=== PATIENT | male | born 1930 | race Caucasian/White ===

== ENCOUNTER 2018-05-06 23:57 | Inpatient (IN) | payer OTHER ==
[2018-05-07] MEDS: ASPIRIN 81 MG TAB PO (00:31)
[2018-05-07 00:34] LABS: ADD MAN DIFF? NO
[2018-05-07 00:35] LABS: BASOPHILS % 0.5 % (0.0-2.0); EOSINOPHILS # 0.1 10^3/ul (0.0-0.5); EOSINOPHILS % 1.7 % (0.0-7.0); HEMATOCRIT 37.3 % (42.0-52.0); HEMOGLOBIN 12.1 g/dl (14.0-18.0); LYMPHOCYTES # 0.7 10^3/ul (0.8-2.9); LYMPHOCYTES % 11.3 % (15.0-51.0); MEAN CORPUSCULAR HEMOGLOBIN 29.5 pg (29.0-33.0); MEAN CORPUSCULAR HGB CONC 32.4 g/dl (32.0-37.0); MEAN PLATELET VOLUME 9.9 fl (7.4-10.4); MONOCYTE # 0.4 10^3/ul (0.3-0.9); MONOCYTES % 7.1 % (0.0-11.0); NEUTROPHIL # 4.7 10^3/ul (1.6-7.5); NEUTROPHILS % 78.7 % (39.0-77.0); PLATELET COUNT 208 10^3/UL (140-415); RED CELL DISTRIBUTION WIDTH 15.3 % (11.5-14.5)
[2018-05-07 00:35] LABS: WHITE BLOOD COUNT 5.9 10^3/ul (4.8-10.8)
[2018-05-07] MEDS: NITROGLYCERIN 2% 1 GM OINT PKT TD (00:37)
[2018-05-07] MEDS: FUROSEMIDE 40 MG INJ IV (00:37)
[2018-05-07 00:53] LABS: ANION GAP 12 (8-16); BLOOD UREA NITROGEN 14 mg/dl (7-20); CALCIUM 8.1 mg/dl (8.4-10.2); CARBON DIOXIDE 28 mmol/L (21-31); CHLORIDE 100 mmol/L (97-110); CREATININE 0.82 mg/dl (0.61-1.24); GLUCOSE 107 mg/dl (70-220); POTASSIUM 3.3 mmol/L (3.5-5.1); SODIUM 137 mmol/L (135-144)
[2018-05-07 00:59] LABS: INR 1.26; PT RATIO 1.3
[2018-05-07 01:00] LABS: PARTIAL THROMBOPLASTIN TIME 38.2 Sec (25.0-35.0)
[2018-05-07 01:06] LABS: B-TYPE NATRIURETIC PEPTIDE 3570 PG/ML (0-450); TROPONIN-I 0.014 ng/ml (0.000-0.120)
[2018-05-07] MEDS: MAGNESIUM SULFATE 2 GM/50 ML 50 ML IVPB (01:12)
[2018-05-07] MEDS ORDERED: ONDANSETRON 4 MG INJ IV ×2 (01:30→02:30)
[2018-05-07] MEDS ORDERED: ACETAMINOPHEN 325 MG TAB PO ×2 (01:30→02:30)
[2018-05-07] MEDS ORDERED: IPRATROPIUM (NEB) 0.5 MG/2.5 ML AMP NEB (02:30)
[2018-05-07] MEDS ORDERED: LEVALBUTEROL (NEB) 0.63 MG/3 ML AMP HHN (02:30)
[2018-05-07] MEDS ORDERED: NITROGLYCERIN (SL) 0.4 MG TAB SL (02:30)
[2018-05-07] MEDS ORDERED: NACL 0.9% 3 ML SYG IV (02:30)
[2018-05-07 02:47] LABS: DIGOXIN 0.4 ng/ml (1.0-2.0)
[2018-05-07] MEDS: AMIODARONE 150MG/D5W BOLUS 100 ML IV (05:26)
[2018-05-07] MEDS: ALBUMIN HUMAN 25% 150 ML IV (05:34)
[2018-05-07] MEDS: AMIODARONE 900 MG in DEXTROSE 5% 482 ML IV ×2 (05:47→11:44)
[2018-05-07 06:39] LABS: ADD MAN DIFF? NO
[2018-05-07 06:55] LABS: ABNORMAL IP MESSAGE 1; BASOPHILS % 0.2 % (0.0-2.0); EOSINOPHILS % 0.9 % (0.0-7.0); HEMATOCRIT 29.3 % (42.0-52.0); HEMOGLOBIN 9.8 g/dl (14.0-18.0); LYMPHOCYTES # 0.4 10^3/ul (0.8-2.9); LYMPHOCYTES % 8.2 % (15.0-51.0); MEAN CORPUSCULAR HEMOGLOBIN 30.2 pg (29.0-33.0); MEAN CORPUSCULAR HGB CONC 33.4 g/dl (32.0-37.0); MEAN CORPUSCULAR VOLUME 90.2 fl (82.0-101.0); MEAN PLATELET VOLUME 10.1 fl (7.4-10.4); MONOCYTE # 0.3 10^3/ul (0.3-0.9); MONOCYTES % 7.1 % (0.0-11.0); NEUTROPHIL # 3.7 10^3/ul (1.6-7.5); NEUTROPHILS % 82.7 % (39.0-77.0); PLATELET COUNT 168 10^3/UL (140-415); POSITIVE DIFF @See below; RED BLOOD COUNT 3.25 10^6/ul (4.70-6.10); RED CELL DISTRIBUTION WIDTH 15.2 % (11.5-14.5)
[2018-05-07 06:55] LABS: WHITE BLOOD COUNT 4.5 10^3/ul (4.8-10.8)
[2018-05-07 08:14] LABS: CREATINE KINASE < 20 IU/L (23-200)
[2018-05-07 08:15] LABS: ALANINE AMINOTRANSFERASE 19 IU/L (13-69); ALBUMIN 2.6 g/dl (3.3-4.9); ALBUMIN/GLOBULIN RATIO 0.83; ALKALINE PHOSPHATASE 90 IU/L (42-121); ANION GAP 11 (8-16); ASPARTATE AMINO TRANSFERASE 15 IU/L (15-46); BILIRUBIN,INDIRECT 0.8 mg/dl (0-1.1); BILIRUBIN,TOTAL 0.8 mg/dl (0.2-1.3); BLOOD UREA NITROGEN 13 mg/dl (7-20); CALCIUM 7.5 mg/dl (8.4-10.2); CARBON DIOXIDE 30 mmol/L (21-31); CHLORIDE 98 mmol/L (97-110); CREATININE 0.74 mg/dl (0.61-1.24); GLUCOSE 110 mg/dl (70-220); POTASSIUM 3.1 mmol/L (3.5-5.1); SODIUM 136 mmol/L (135-144); TOTAL PROTEIN 5.7 g/dl (6.1-8.1)
[2018-05-07 08:18] LABS: CK-MB 0.69 ng/ml (0.0-2.4); TROPONIN-I 0.011 ng/ml (0.000-0.120)
[2018-05-07] MEDS: MAGNESIUM HYDROXIDE 30ML CUP PO ×2 (09:54→20:28)
[2018-05-07] MEDS: DOCUSATE SODIUM 100 MG CAP PO (09:55)
[2018-05-07] MEDS: APIXABAN 5 MG TABLET PO ×2 (09:55→20:28)
[2018-05-07] MEDS: LISINOPRIL 5 MG TAB PO (09:55)
[2018-05-07] MEDS: METOPROLOL (XL) 25 MG TAB PO ×2 (09:56→20:27)
[2018-05-07] MEDS: FISH OIL 1,000 MG CAP PO ×3 (09:57→17:43)
[2018-05-07] MEDS: FUROSEMIDE 20 MG TAB PO (09:57)
[2018-05-07 12:45] LABS: CK-MB 0.57 ng/ml (0.0-2.4); TROPONIN-I 0.011 ng/ml (0.000-0.120)
[2018-05-07 12:46] LABS: CREATINE KINASE < 20 IU/L (23-200)
[2018-05-07] MEDS: DIGOXIN 0.125 MG TAB PO (13:00)
[2018-05-07] MEDS ORDERED: BISACODYL 10 MG SUPP PR (13:30)
[2018-05-07] MEDS ORDERED: BISACODYL (EC) 5 MG TAB PO (13:30)
[2018-05-08] MEDS: DOCUSATE SODIUM 100 MG CAP PO (08:27)
[2018-05-08] MEDS: FAMOTIDINE 20 MG TAB PO (08:29)
[2018-05-08] MEDS: FISH OIL 1,000 MG CAP PO ×3 (08:29→18:06)
[2018-05-08] MEDS: APIXABAN 5 MG TABLET PO ×2 (08:30→21:07)
[2018-05-08] MEDS: LISINOPRIL 5 MG TAB PO (08:30)
[2018-05-08] MEDS: MAGNESIUM HYDROXIDE 30ML CUP PO ×2 (08:31→21:00)
[2018-05-08] MEDS: METOPROLOL (XL) 25 MG TAB PO ×2 (08:31→21:00)
[2018-05-08 09:09] LABS: ADD MAN DIFF? NO
[2018-05-08 09:18] LABS: ABNORMAL IP MESSAGE 1; BASOPHILS % 0.4 % (0.0-2.0); EOSINOPHILS # 0.1 10^3/ul (0.0-0.5); HEMOGLOBIN 9.9 g/dl (14.0-18.0); LYMPHOCYTES # 0.5 10^3/ul (0.8-2.9); MEAN CORPUSCULAR HGB CONC 31.9 g/dl (32.0-37.0); MEAN CORPUSCULAR VOLUME 90.9 fl (82.0-101.0); MEAN PLATELET VOLUME 10.5 fl (7.4-10.4); MONOCYTE # 0.5 10^3/ul (0.3-0.9); MONOCYTES % 8.6 % (0.0-11.0); NEUTROPHIL # 4.2 10^3/ul (1.6-7.5); NEUTROPHILS % 80.6 % (39.0-77.0); PLATELET COUNT 171 10^3/UL (140-415); POSITIVE DIFF @See below; RED BLOOD COUNT 3.41 10^6/ul (4.70-6.10); RED CELL DISTRIBUTION WIDTH 15.5 % (11.5-14.5)
[2018-05-08 09:18] LABS: WHITE BLOOD COUNT 5.2 10^3/ul (4.8-10.8)
[2018-05-08 09:39] LABS: DIGOXIN 0.7 ng/ml (1.0-2.0)
[2018-05-08 09:40] LABS: ALANINE AMINOTRANSFERASE 21 IU/L (13-69); ALBUMIN 2.3 g/dl (3.3-4.9); ALBUMIN/GLOBULIN RATIO 0.74; ALKALINE PHOSPHATASE 89 IU/L (42-121); ANION GAP 8 (8-16); ASPARTATE AMINO TRANSFERASE 12 IU/L (15-46); BLOOD UREA NITROGEN 17 mg/dl (7-20); CALCIUM 7.5 mg/dl (8.4-10.2); CARBON DIOXIDE 32 mmol/L (21-31); CHLORIDE 96 mmol/L (97-110); CREATININE 0.76 mg/dl (0.61-1.24); GLUCOSE 96 mg/dl (70-220); MAGNESIUM 2.3 mg/dl (1.7-2.5); PHOSPHORUS 3.5 mg/dl (2.5-4.9); POTASSIUM 3.3 mmol/L (3.5-5.1); SODIUM 133 mmol/L (135-144); TOTAL PROTEIN 5.4 g/dl (6.1-8.1)
[2018-05-08 09:43] LABS: INR 1.57; PROTIME 19.1 Sec (11.9-14.9); PT RATIO 1.5
[2018-05-08 09:49] LABS: TROPONIN-I 0.019 ng/ml (0.000-0.120)
[2018-05-08 09:50] LABS: HEMOGLOBIN A1C 5.6 % (0-5.9)
[2018-05-08] MEDS: POTASSIUM CHLORIDE (SR) 20 MEQ TAB PO (11:37)
[2018-05-08] MEDS: DIGOXIN 0.125 MG TAB PO (12:24)
[2018-05-08 12:57] LABS: IRON 18 ug/dl (35-150)
[2018-05-08 13:06] LABS: % IRON SATURATION 10 % SAT (22-52); TOTAL IRON BINDING CAPACITY 184 ug/dl (241-421)
[2018-05-08] MEDS ORDERED: BISACODYL (EC) 5 MG TAB PO (16:30)
[2018-05-08] MEDS: FUROSEMIDE 40 MG INJ IV (18:05)
[2018-05-08] MEDS: POLYETHYLENE GLYCOL 17 GM PACKET PO (21:06)
[2018-05-09] MEDS: FUROSEMIDE 40 MG INJ IV ×2 (05:05→17:30)
[2018-05-09 07:49] LABS: ADD MAN DIFF? NO
[2018-05-09 08:00] LABS: WHITE BLOOD COUNT 5.1 10^3/ul (4.8-10.8)
[2018-05-09 08:00] LABS: BASOPHILS % 0.6 % (0.0-2.0); EOSINOPHILS # 0.1 10^3/ul (0.0-0.5); HEMOGLOBIN 10.2 g/dl (14.0-18.0); LYMPHOCYTES # 0.6 10^3/ul (0.8-2.9); LYMPHOCYTES % 12.3 % (15.0-51.0); MEAN CORPUSCULAR HGB CONC 31.9 g/dl (32.0-37.0); MEAN CORPUSCULAR VOLUME 90.9 fl (82.0-101.0); MEAN PLATELET VOLUME 10.3 fl (7.4-10.4); MONOCYTE # 0.5 10^3/ul (0.3-0.9); MONOCYTES % 10.1 % (0.0-11.0); NEUTROPHIL # 3.8 10^3/ul (1.6-7.5); NEUTROPHILS % 74.4 % (39.0-77.0); PLATELET COUNT 184 10^3/UL (140-415); POSITIVE DIFF @See below; RED BLOOD COUNT 3.52 10^6/ul (4.70-6.10); RED CELL DISTRIBUTION WIDTH 15.4 % (11.5-14.5)
[2018-05-09 08:22] LABS: CHOL/HDL RATIO 2.7 RATIO; CHOLESTEROL 68 mg/dl (100-200); HDL CHOLESTEROL 25 mg/dl (31-75); LDL CHOLESTEROL,CALCULATED 30 mg/dl; MAGNESIUM 2.5 mg/dl (1.7-2.5); TRIGLYCERIDES 66 mg/dl (0-149)
[2018-05-09 08:22] LABS: PHOSPHORUS 3.3 mg/dl (2.5-4.9)
[2018-05-09 08:27] LABS: ALANINE AMINOTRANSFERASE 24 IU/L (13-69); ALBUMIN/GLOBULIN RATIO 0.71; ALKALINE PHOSPHATASE 84 IU/L (42-121); ANION GAP 6 (8-16); ASPARTATE AMINO TRANSFERASE 13 IU/L (15-46); BILIRUBIN,INDIRECT 0.4 mg/dl (0-1.1); BILIRUBIN,TOTAL 0.4 mg/dl (0.2-1.3); BLOOD UREA NITROGEN 20 mg/dl (7-20); CALCIUM 7.6 mg/dl (8.4-10.2); CARBON DIOXIDE 34 mmol/L (21-31); CHLORIDE 99 mmol/L (97-110); CREATININE 0.89 mg/dl (0.61-1.24); GLUCOSE 95 mg/dl (70-220); POTASSIUM 4.1 mmol/L (3.5-5.1); SODIUM 135 mmol/L (135-144); TOTAL PROTEIN 4.8 g/dl (6.1-8.1)
[2018-05-09] MEDS: FISH OIL 1,000 MG CAP PO ×3 (08:34→17:30)
[2018-05-09] MEDS: METOPROLOL (XL) 25 MG TAB PO (08:34)
[2018-05-09] MEDS: APIXABAN 5 MG TABLET PO ×2 (08:34→21:48)
[2018-05-09] MEDS: FAMOTIDINE 20 MG TAB PO (08:34)
[2018-05-09] MEDS: DOCUSATE SODIUM 100 MG CAP PO (08:34)
[2018-05-09] MEDS: MAGNESIUM HYDROXIDE 30ML CUP PO ×2 (08:34→21:00)
[2018-05-09] MEDS: LISINOPRIL 5 MG TAB PO (08:35)
[2018-05-09] MEDS: DIGOXIN 0.125 MG TAB PO (12:04)
[2018-05-09 20:32] LABS: PSA, FREE 0.1 ng/mL
[2018-05-10] MEDS: FUROSEMIDE 40 MG INJ IV ×2 (06:15→17:17)
[2018-05-10] MEDS: MAGNESIUM HYDROXIDE 30ML CUP PO ×2 (07:24→20:46)
[2018-05-10] MEDS: DOCUSATE SODIUM 100 MG CAP PO (07:25)
[2018-05-10] MEDS: SPECIAL NON-STANDARD MEDICATION PO (08:00)
[2018-05-10] MEDS: FISH OIL 1,000 MG CAP PO ×3 (08:07→17:17)
[2018-05-10] MEDS: APIXABAN 5 MG TABLET PO ×2 (08:07→20:45)
[2018-05-10] MEDS: FAMOTIDINE 20 MG TAB PO (08:07)
[2018-05-10] MEDS: IOHEXOL 14.3 MG(I)/ML (ADULT) BTL PO (09:39)
[2018-05-10 11:26] LABS: ADD MAN DIFF? NO
[2018-05-10 11:27] LABS: WHITE BLOOD COUNT 4.6 10^3/ul (4.8-10.8)
[2018-05-10 11:27] LABS: BASOPHILS % 0.4 % (0.0-2.0); EOSINOPHILS # 0.1 10^3/ul (0.0-0.5); EOSINOPHILS % 2.6 % (0.0-7.0); HEMATOCRIT 33.1 % (42.0-52.0); HEMOGLOBIN 10.5 g/dl (14.0-18.0); LYMPHOCYTES # 0.7 10^3/ul (0.8-2.9); LYMPHOCYTES % 14.9 % (15.0-51.0); MEAN CORPUSCULAR HEMOGLOBIN 29.1 pg (29.0-33.0); MEAN CORPUSCULAR HGB CONC 31.7 g/dl (32.0-37.0); MEAN CORPUSCULAR VOLUME 91.7 fl (82.0-101.0); MEAN PLATELET VOLUME 10.6 fl (7.4-10.4); MONOCYTE # 0.4 10^3/ul (0.3-0.9); MONOCYTES % 9.4 % (0.0-11.0); NEUTROPHIL # 3.3 10^3/ul (1.6-7.5); PLATELET COUNT 201 10^3/UL (140-415); POSITIVE DIFF @See below; RED BLOOD COUNT 3.61 10^6/ul (4.70-6.10); RED CELL DISTRIBUTION WIDTH 15.2 % (11.5-14.5)
[2018-05-10 11:57] LABS: ANION GAP 8 (8-16); BLOOD UREA NITROGEN 19 mg/dl (7-20); CALCIUM 7.5 mg/dl (8.4-10.2); CARBON DIOXIDE 33 mmol/L (21-31); CHLORIDE 96 mmol/L (97-110); CREATININE 0.78 mg/dl (0.61-1.24); GLUCOSE 95 mg/dl (70-220); POTASSIUM 3.4 mmol/L (3.5-5.1); SODIUM 134 mmol/L (135-144)
[2018-05-10 11:58] LABS: PHOSPHORUS 3.5 mg/dl (2.5-4.9)
[2018-05-10 11:58] LABS: MAGNESIUM 2.2 mg/dl (1.7-2.5)
[2018-05-10 12:01] LABS: DIGOXIN 0.7 ng/ml (1.0-2.0)
[2018-05-10 12:03] LABS: B-TYPE NATRIURETIC PEPTIDE 2820 PG/ML (0-450)
[2018-05-10] MEDS: DIGOXIN 0.125 MG TAB PO (12:14)
[2018-05-10 13:03] LABS: ANISOCYTOSIS 1+ (0-0); BAND NEUTROPHILS #M 0.1 10^3/ul (0.0-0.6); BAND NEUTROPHILS % (M) 3 % (0-4); EOSINOPHILS % (M) 9 % (0-7); GIANT THROMBO% (M) 1 % (0-0); LYMPHOCYTES % (M) 1 % (15-51); MONOCYTE #M 0.2 10^3/ul (0.3-0.9); MONOCYTES % (M) 6 % (0-11); PLATELET ESTIMATE NORMAL; POIKILOCYTOSIS 2+ (0-0); POLYCHROMASIA 1+ (0-0); REACTIVE LYMPHOCYTES #M 0.1 10^3/ul (0.0-0.0); REACTIVE LYMPHOCYTES% (M) 3 % (0-0); SEG NEUT #M 3.6 10^3/ul (1.6-7.5); SEGMENTED NEUTROPHILS (M) % 78 % (39-77); SMUDGE%M 13 % (0-0); SPHEROCYTES 1+ (0-0)
[2018-05-10] MEDS: DIGOXIN 0.25 MG TAB PO (18:58)
[2018-05-10] MEDS: POTASSIUM CHLORIDE (SR) 20 MEQ TAB PO (21:48)
[2018-05-11] MEDS: FUROSEMIDE 40 MG INJ IV ×2 (04:24→08:49)
[2018-05-11] MEDS: ALBUMIN HUMAN 25% 100 ML IV ×2 (05:33→06:05)
[2018-05-11] MEDS: MAGNESIUM HYDROXIDE 30ML CUP PO ×3 (08:42→21:04)
[2018-05-11] MEDS: DOCUSATE SODIUM 100 MG CAP PO (08:43)
[2018-05-11] MEDS: APIXABAN 5 MG TABLET PO ×2 (08:43→21:04)
[2018-05-11] MEDS: FISH OIL 1,000 MG CAP PO ×3 (08:43→17:54)
[2018-05-11] MEDS: FAMOTIDINE 20 MG TAB PO (08:43)
[2018-05-11 09:26] LABS: ADD MAN DIFF? NO
[2018-05-11 09:36] LABS: WHITE BLOOD COUNT 3.7 10^3/ul (4.8-10.8)
[2018-05-11 09:36] LABS: BASOPHILS % 0.3 % (0.0-2.0); EOSINOPHILS # 0.1 10^3/ul (0.0-0.5); EOSINOPHILS % 1.6 % (0.0-7.0); HEMATOCRIT 28.7 % (42.0-52.0); HEMOGLOBIN 9.1 g/dl (14.0-18.0); LYMPHOCYTES # 0.6 10^3/ul (0.8-2.9); LYMPHOCYTES % 16.3 % (15.0-51.0); MEAN CORPUSCULAR HEMOGLOBIN 29.5 pg (29.0-33.0); MEAN CORPUSCULAR HGB CONC 31.7 g/dl (32.0-37.0); MEAN CORPUSCULAR VOLUME 93.2 fl (82.0-101.0); MEAN PLATELET VOLUME 10.6 fl (7.4-10.4); MONOCYTE # 0.4 10^3/ul (0.3-0.9); MONOCYTES % 11.2 % (0.0-11.0); NEUTROPHIL # 2.6 10^3/ul (1.6-7.5); NEUTROPHILS % 70.1 % (39.0-77.0); PLATELET COUNT 179 10^3/UL (140-415); RED BLOOD COUNT 3.08 10^6/ul (4.70-6.10); RED CELL DISTRIBUTION WIDTH 15.1 % (11.5-14.5)
[2018-05-11 10:09] LABS: MAGNESIUM 2.1 mg/dl (1.7-2.5)
[2018-05-11 10:09] LABS: PHOSPHORUS 3.4 mg/dl (2.5-4.9)
[2018-05-11 10:10] LABS: ANION GAP 10 (8-16); BLOOD UREA NITROGEN 17 mg/dl (7-20); CALCIUM 7.7 mg/dl (8.4-10.2); CARBON DIOXIDE 34 mmol/L (21-31); CHLORIDE 95 mmol/L (97-110); CREATININE 0.71 mg/dl (0.61-1.24); GLUCOSE 92 mg/dl (70-220); SODIUM 135 mmol/L (135-144)
[2018-05-11] MEDS: DIGOXIN 0.125 MG TAB PO (13:21)
[2018-05-11] MEDS: PANTOPRAZOLE (EC) 40 MG TAB PO (17:54)
[2018-05-11] MEDS ORDERED: PANTOPRAZOLE (EC) 40 MG TAB PO (18:00)
[2018-05-11] MEDS: FUROSEMIDE 40 MG TAB NGT (19:00)
[2018-05-11] MEDS: CLARITHROMYCIN 500 MG TAB PO (21:04)
[2018-05-11] MEDS: AMOXICILLIN 500 MG CAP PO (21:04)
[2018-05-12] MEDS: FUROSEMIDE 40 MG TAB NGT ×2 (06:00→17:17)
[2018-05-12] MEDS: PANTOPRAZOLE (EC) 40 MG TAB PO ×2 (06:01→17:20)
[2018-05-12] MEDS: DOCUSATE SODIUM 100 MG CAP PO (08:43)
[2018-05-12] MEDS: AMOXICILLIN 500 MG CAP PO ×2 (08:43→20:29)
[2018-05-12] MEDS: APIXABAN 5 MG TABLET PO ×2 (08:43→20:29)
[2018-05-12] MEDS: FISH OIL 1,000 MG CAP PO ×3 (08:43→17:19)
[2018-05-12] MEDS: CLARITHROMYCIN 500 MG TAB PO ×2 (08:43→20:29)
[2018-05-12] MEDS: MAGNESIUM HYDROXIDE 30ML CUP PO ×2 (08:44→20:29)
[2018-05-12 08:57] LABS: ABNORMAL IP MESSAGE 1; HEMATOCRIT 31.7 % (42.0-52.0); HEMOGLOBIN 10.1 g/dl (14.0-18.0); MEAN CORPUSCULAR HEMOGLOBIN 29.8 pg (29.0-33.0); MEAN CORPUSCULAR HGB CONC 31.9 g/dl (32.0-37.0); MEAN CORPUSCULAR VOLUME 93.5 fl (82.0-101.0); MEAN PLATELET VOLUME 10.3 fl (7.4-10.4); PLATELET COUNT 192 10^3/UL (140-415); POSITIVE DIFF @See below; RED BLOOD COUNT 3.39 10^6/ul (4.70-6.10)
[2018-05-12 09:03] LABS: ADD MAN DIFF? YES
[2018-05-12 09:16] LABS: ANION GAP 12 (8-16); BLOOD UREA NITROGEN 13 mg/dl (7-20); CALCIUM 7.8 mg/dl (8.4-10.2); CARBON DIOXIDE 33 mmol/L (21-31); CHLORIDE 95 mmol/L (97-110); CREATININE 0.73 mg/dl (0.61-1.24); GLUCOSE 93 mg/dl (70-220); SODIUM 136 mmol/L (135-144)
[2018-05-12 09:17] LABS: PHOSPHORUS 3.1 mg/dl (2.5-4.9)
[2018-05-12 09:17] LABS: MAGNESIUM 2.4 mg/dl (1.7-2.5)
[2018-05-12 09:26] LABS: DIGOXIN 1.6 ng/ml (1.0-2.0)
[2018-05-12 09:42] LABS: BAND NEUTROPHILS #M 0.3 10^3/ul (0.0-0.6); BAND NEUTROPHILS % (M) 6 % (0-4); EOSINOPHILS % (M) 2 % (0-7); LYMPHOCYTES #M 0.5 10^3/ul (0.8-2.9); LYMPHOCYTES % (M) 10 % (15-51); MONOCYTE #M 0.1 10^3/ul (0.3-0.9); MONOCYTES % (M) 2 % (0-11); PLATELET ESTIMATE NORMAL; POIKILOCYTOSIS 1+ (0-0); REACTIVE LYMPHOCYTES #M 0.1 10^3/ul (0.0-0.0); REACTIVE LYMPHOCYTES% (M) 2 % (0-0); SEG NEUT #M 3.9 10^3/ul (1.6-7.5); SEGMENTED NEUTROPHILS (M) % 78 % (39-77); SMUDGE%M 37 % (0-0)
[2018-05-12] MEDS: DIGOXIN 0.125 MG TAB PO (12:25)
[2018-05-12] MEDS: HYDROCORTISONE 100 MG INJ IV (21:46)
[2018-05-13] MEDS: HYDROCORTISONE 100 MG INJ IV ×3 (05:39→21:36)
[2018-05-13] MEDS: PANTOPRAZOLE (EC) 40 MG TAB PO ×2 (05:45→18:07)
[2018-05-13] MEDS: FUROSEMIDE 40 MG TAB NGT ×2 (05:46→18:00)
[2018-05-13 07:46] LABS: ADD MAN DIFF? NO
[2018-05-13 07:50] LABS: ABNORMAL IP MESSAGE 1; HEMOGLOBIN 10.2 g/dl (14.0-18.0); LYMPHOCYTES # 0.4 10^3/ul (0.8-2.9); MEAN CORPUSCULAR HEMOGLOBIN 29.3 pg (29.0-33.0); MEAN CORPUSCULAR HGB CONC 31.9 g/dl (32.0-37.0); MEAN PLATELET VOLUME 10.2 fl (7.4-10.4); MONOCYTE # 0.2 10^3/ul (0.3-0.9); MONOCYTES % 4.4 % (0.0-11.0); NEUTROPHIL # 3.8 10^3/ul (1.6-7.5); NEUTROPHILS % 86.5 % (39.0-77.0); PLATELET COUNT 174 10^3/UL (140-415); POSITIVE DIFF @See below; RED BLOOD COUNT 3.48 10^6/ul (4.70-6.10)
[2018-05-13 07:50] LABS: WHITE BLOOD COUNT 4.4 10^3/ul (4.8-10.8)
[2018-05-13 09:01] LABS: PHOSPHORUS 4.1 mg/dl (2.5-4.9)
[2018-05-13 09:01] LABS: MAGNESIUM 2.4 mg/dl (1.7-2.5)
[2018-05-13 09:02] LABS: ANION GAP 10 (8-16); BLOOD UREA NITROGEN 14 mg/dl (7-20); CALCIUM 7.9 mg/dl (8.4-10.2); CARBON DIOXIDE 33 mmol/L (21-31); CHLORIDE 94 mmol/L (97-110); CREATININE 0.73 mg/dl (0.61-1.24); GLUCOSE 121 mg/dl (70-220); POTASSIUM 4.3 mmol/L (3.5-5.1); SODIUM 133 mmol/L (135-144)
[2018-05-13] MEDS: FISH OIL 1,000 MG CAP PO ×3 (09:13→18:07)
[2018-05-13] MEDS: DOCUSATE SODIUM 100 MG CAP PO (09:13)
[2018-05-13] MEDS: AMOXICILLIN 500 MG CAP PO ×2 (09:13→20:21)
[2018-05-13] MEDS: APIXABAN 5 MG TABLET PO ×2 (09:13→20:21)
[2018-05-13] MEDS: MAGNESIUM HYDROXIDE 30ML CUP PO ×2 (09:13→20:21)
[2018-05-13] MEDS: CLARITHROMYCIN 500 MG TAB PO ×2 (09:13→20:21)
[2018-05-13] MEDS: DIGOXIN 0.125 MG TAB PO (12:42)
[2018-05-14] MEDS: FUROSEMIDE 40 MG TAB NGT ×2 (05:47→17:22)
[2018-05-14] MEDS: HYDROCORTISONE 100 MG INJ IV ×3 (05:47→21:04)
[2018-05-14] MEDS: PANTOPRAZOLE (EC) 40 MG TAB PO ×2 (05:47→17:22)
[2018-05-14 06:30] LABS: ADD MAN DIFF? NO
[2018-05-14 06:33] LABS: WHITE BLOOD COUNT 8.7 10^3/ul (4.8-10.8)
[2018-05-14 06:33] LABS: HEMATOCRIT 29.8 % (42.0-52.0); HEMOGLOBIN 9.5 g/dl (14.0-18.0); LYMPHOCYTES # 0.6 10^3/ul (0.8-2.9); LYMPHOCYTES % 7.4 % (15.0-51.0); MEAN CORPUSCULAR HEMOGLOBIN 28.9 pg (29.0-33.0); MEAN CORPUSCULAR HGB CONC 31.9 g/dl (32.0-37.0); MEAN CORPUSCULAR VOLUME 90.6 fl (82.0-101.0); MEAN PLATELET VOLUME 10.6 fl (7.4-10.4); MONOCYTE # 0.5 10^3/ul (0.3-0.9); NEUTROPHIL # 7.4 10^3/ul (1.6-7.5); NEUTROPHILS % 85.6 % (39.0-77.0); PLATELET COUNT 213 10^3/UL (140-415); RED BLOOD COUNT 3.29 10^6/ul (4.70-6.10); RED CELL DISTRIBUTION WIDTH 14.9 % (11.5-14.5)
[2018-05-14 07:00] LABS: PHOSPHORUS 3.4 mg/dl (2.5-4.9)
[2018-05-14 07:00] LABS: MAGNESIUM 2.7 mg/dl (1.7-2.5)
[2018-05-14 07:01] LABS: ANION GAP 7 (8-16); BLOOD UREA NITROGEN 22 mg/dl (7-20); CALCIUM 8.1 mg/dl (8.4-10.2); CARBON DIOXIDE 34 mmol/L (21-31); CHLORIDE 95 mmol/L (97-110); CREATININE 0.81 mg/dl (0.61-1.24); GLUCOSE 128 mg/dl (70-220); POTASSIUM 4.3 mmol/L (3.5-5.1); SODIUM 132 mmol/L (135-144)
[2018-05-14] MEDS: CLARITHROMYCIN 500 MG TAB PO ×2 (08:24→21:00)
[2018-05-14] MEDS: MAGNESIUM HYDROXIDE 30ML CUP PO ×2 (08:24→21:00)
[2018-05-14] MEDS: AMOXICILLIN 500 MG CAP PO ×2 (08:24→20:59)
[2018-05-14] MEDS: FISH OIL 1,000 MG CAP PO ×3 (08:24→17:22)
[2018-05-14] MEDS: DOCUSATE SODIUM 100 MG CAP PO (08:24)
[2018-05-14] MEDS: APIXABAN 5 MG TABLET PO ×2 (08:24→20:59)
[2018-05-14] MEDS: DIGOXIN 0.125 MG TAB PO (12:20)
[2018-05-15] MEDS: FUROSEMIDE 40 MG TAB NGT ×3 (05:56→18:00)
[2018-05-15] MEDS: PANTOPRAZOLE (EC) 40 MG TAB PO ×2 (05:57→17:56)
[2018-05-15] MEDS: HYDROCORTISONE 100 MG INJ IV ×3 (05:57→21:00)
[2018-05-15 07:38] LABS: ADD MAN DIFF? NO
[2018-05-15 07:45] LABS: WHITE BLOOD COUNT 7.8 10^3/ul (4.8-10.8)
[2018-05-15 07:45] LABS: ABNORMAL IP MESSAGE 1; HEMATOCRIT 30.1 % (42.0-52.0); HEMOGLOBIN 9.6 g/dl (14.0-18.0); LYMPHOCYTES # 0.5 10^3/ul (0.8-2.9); LYMPHOCYTES % 5.8 % (15.0-51.0); MEAN CORPUSCULAR HEMOGLOBIN 29.4 pg (29.0-33.0); MEAN CORPUSCULAR HGB CONC 31.9 g/dl (32.0-37.0); MEAN PLATELET VOLUME 10.3 fl (7.4-10.4); MONOCYTE # 0.7 10^3/ul (0.3-0.9); MONOCYTES % 9.1 % (0.0-11.0); NEUTROPHIL # 6.6 10^3/ul (1.6-7.5); NEUTROPHILS % 83.9 % (39.0-77.0); PLATELET COUNT 211 10^3/UL (140-415); POSITIVE DIFF @See below; RED BLOOD COUNT 3.27 10^6/ul (4.70-6.10); RED CELL DISTRIBUTION WIDTH 15.3 % (11.5-14.5)
[2018-05-15] MEDS: FISH OIL 1,000 MG CAP PO ×3 (08:00→17:56)
[2018-05-15 08:06] LABS: MAGNESIUM 2.9 mg/dl (1.7-2.5)
[2018-05-15 08:24] LABS: ANION GAP 8 (8-16); BLOOD UREA NITROGEN 30 mg/dl (7-20); CALCIUM 8.2 mg/dl (8.4-10.2); CARBON DIOXIDE 35 mmol/L (21-31); CHLORIDE 96 mmol/L (97-110); CREATININE 1.01 mg/dl (0.61-1.24); GLUCOSE 114 mg/dl (70-220); POTASSIUM 4.5 mmol/L (3.5-5.1); SODIUM 134 mmol/L (135-144)
[2018-05-15] MEDS: MAGNESIUM HYDROXIDE 30ML CUP PO ×2 (09:00→09:43)
[2018-05-15] MEDS: CLARITHROMYCIN 500 MG TAB PO ×2 (09:42→21:00)
[2018-05-15] MEDS: DOCUSATE SODIUM 100 MG CAP PO (09:42)
[2018-05-15] MEDS: APIXABAN 5 MG TABLET PO ×2 (09:43→21:00)
[2018-05-15] MEDS: AMOXICILLIN 500 MG CAP PO ×2 (09:43→20:59)
[2018-05-15 10:11] LABS: DIGOXIN 1.8 ng/ml (1.0-2.0)
[2018-05-15] MEDS: DIGOXIN 0.125 MG TAB PO (13:00)
[2018-05-16] MEDS: PANTOPRAZOLE (EC) 40 MG TAB PO ×2 (05:46→18:06)
[2018-05-16] MEDS: HYDROCORTISONE 100 MG INJ IV (05:46)
[2018-05-16] MEDS: FUROSEMIDE 40 MG TAB NGT (06:00)
[2018-05-16] MEDS: AMOXICILLIN 500 MG CAP PO ×2 (08:23→21:51)
[2018-05-16] MEDS: CLARITHROMYCIN 500 MG TAB PO ×2 (08:24→21:51)
[2018-05-16] MEDS: DOCUSATE SODIUM 100 MG CAP PO (08:24)
[2018-05-16] MEDS: FISH OIL 1,000 MG CAP PO ×3 (08:24→18:06)
[2018-05-16] MEDS: APIXABAN 5 MG TABLET PO ×2 (08:25→21:51)
[2018-05-16] MEDS: DIGOXIN 0.125 MG TAB PO (13:49)
[2018-05-16] MEDS: FUROSEMIDE 20 MG TAB PO (17:18)
[2018-05-17 05:54] LABS: ADD MAN DIFF? NO
[2018-05-17] MEDS: FUROSEMIDE 20 MG TAB PO ×2 (06:00→17:33)
[2018-05-17] MEDS: PANTOPRAZOLE (EC) 40 MG TAB PO ×2 (06:12→17:33)
[2018-05-17 06:22] LABS: ANION GAP 6 (8-16); BLOOD UREA NITROGEN 33 mg/dl (7-20); CALCIUM 7.9 mg/dl (8.4-10.2); CARBON DIOXIDE 35 mmol/L (21-31); CHLORIDE 96 mmol/L (97-110); CREATININE 1.05 mg/dl (0.61-1.24); GLUCOSE 90 mg/dl (70-220); POTASSIUM 3.6 mmol/L (3.5-5.1); SODIUM 133 mmol/L (135-144)
[2018-05-17 06:52] LABS: MAGNESIUM 2.7 mg/dl (1.7-2.5)
[2018-05-17 06:52] LABS: PHOSPHORUS 3.4 mg/dl (2.5-4.9)
[2018-05-17 07:25] LABS: DIGOXIN 1.4 ng/ml (1.0-2.0)
[2018-05-17 07:54] LABS: WHITE BLOOD COUNT 5.4 10^3/ul (4.8-10.8)
[2018-05-17 07:54] LABS: BASOPHILS % 0.2 % (0.0-2.0); EOSINOPHILS % 0.6 % (0.0-7.0); HEMATOCRIT 31.6 % (42.0-52.0); HEMOGLOBIN 10.4 g/dl (14.0-18.0); LYMPHOCYTES # 0.8 10^3/ul (0.8-2.9); LYMPHOCYTES % 14.4 % (15.0-51.0); MEAN CORPUSCULAR HEMOGLOBIN 30.2 pg (29.0-33.0); MEAN CORPUSCULAR HGB CONC 32.9 g/dl (32.0-37.0); MEAN CORPUSCULAR VOLUME 91.9 fl (82.0-101.0); MEAN PLATELET VOLUME 10.1 fl (7.4-10.4); MONOCYTE # 0.7 10^3/ul (0.3-0.9); NEUTROPHIL # 3.8 10^3/ul (1.6-7.5); NEUTROPHILS % 70.9 % (39.0-77.0); PLATELET COUNT 190 10^3/UL (140-415); RED BLOOD COUNT 3.44 10^6/ul (4.70-6.10); RED CELL DISTRIBUTION WIDTH 15.2 % (11.5-14.5)
[2018-05-17] MEDS: AMOXICILLIN 500 MG CAP PO ×2 (08:07→21:26)
[2018-05-17] MEDS: CLARITHROMYCIN 500 MG TAB PO ×2 (08:07→21:26)
[2018-05-17] MEDS: DOCUSATE SODIUM 100 MG CAP PO (08:07)
[2018-05-17] MEDS: FISH OIL 1,000 MG CAP PO ×3 (08:07→17:33)
[2018-05-17] MEDS: APIXABAN 5 MG TABLET PO ×2 (08:07→21:26)
[2018-05-17] MEDS: DIGOXIN 0.125 MG TAB PO (13:16)
[2018-05-18] MEDS: PANTOPRAZOLE (EC) 40 MG TAB PO ×2 (05:56→18:00)
[2018-05-18] MEDS: FUROSEMIDE 20 MG TAB PO ×2 (05:56→18:00)
[2018-05-18] MEDS: AMOXICILLIN 500 MG CAP PO (08:49)
[2018-05-18] MEDS: CLARITHROMYCIN 500 MG TAB PO (08:49)
[2018-05-18] MEDS: DOCUSATE SODIUM 100 MG CAP PO (08:49)
[2018-05-18] MEDS: APIXABAN 5 MG TABLET PO (08:49)
[2018-05-18] MEDS: FISH OIL 1,000 MG CAP PO ×3 (08:49→18:05)
[2018-05-18] MEDS: DIGOXIN 0.125 MG TAB PO (12:26)
== END 2018-05-18 18:18 | disposition home or self-care (01) | DRG 308 ==
LOC: E/R 23:57 → MS4 05-07 01:20
DX: I48.2 Chronic atrial fibrillation (principal); I50.23 Acute on chronic systolic (congestive) heart failure; L80 Vitiligo; I11.0 Hypertensive heart disease with heart failure; I25.10 Atherosclerotic heart disease of native coronary artery without angina pectoris; K59.00 Constipation, unspecified; E78.5 Hyperlipidemia, unspecified; N40.0 Benign prostatic hyperplasia without lower urinary tract symptoms; D64.9 Anemia, unspecified; I27.20 Pulmonary hypertension, unspecified; I42.9 Cardiomyopathy, unspecified; I95.9 Hypotension, unspecified; E61.1 Iron deficiency; E55.9 Vitamin D deficiency, unspecified; Z79.01 Long term (current) use of anticoagulants; I35.0 Nonrheumatic aortic (valve) stenosis
CPT/HCPCS: 36415; 71045; 74018; 74176; 80048; 80053; 80061; 80162; 82306; 82533; 82550; 82553; 82728; 83036; 83540; 83735; 83880; 84100; 84153; 84154; 84443; 84484; 85025; 85610; 85730; 87338; 93005; 93306; 96374; 96375; 97162; 97164; 99285-25

== ENCOUNTER 2018-07-13 22:22 | Inpatient (IN) | payer OTHER ==
[2018-07-14 01:54] LABS: ADD MAN DIFF? NO; BASOPHILS % 0.3 % (0.0-2.0); EOSINOPHILS # 0.1 10^3/ul (0.0-0.5); EOSINOPHILS % 2.4 % (0.0-7.0); HEMATOCRIT 33.5 % (42.0-52.0); HEMOGLOBIN 10.6 g/dl (14.0-18.0); LYMPHOCYTES # 0.8 10^3/ul (0.8-2.9); LYMPHOCYTES % 20.6 % (15.0-51.0); MEAN CORPUSCULAR HEMOGLOBIN 30.4 pg (29.0-33.0); MEAN CORPUSCULAR HGB CONC 31.6 g/dl (32.0-37.0); MEAN PLATELET VOLUME 9.5 fl (7.4-10.4); MONOCYTE # 0.2 10^3/ul (0.3-0.9); MONOCYTES % 6.5 % (0.0-11.0); NEUTROPHIL # 2.6 10^3/ul (1.6-7.5); NEUTROPHILS % 69.7 % (39.0-77.0); PLATELET COUNT 180 10^3/UL (140-415); RED BLOOD COUNT 3.49 10^6/ul (4.70-6.10)
[2018-07-14 01:54] LABS: WHITE BLOOD COUNT 3.7 10^3/ul (4.8-10.8)
[2018-07-14 02:13] LABS: ANION GAP 8 (8-16); BLOOD UREA NITROGEN 12 mg/dl (7-20); CALCIUM 7.9 mg/dl (8.4-10.2); CARBON DIOXIDE 31 mmol/L (21-31); CHLORIDE 102 mmol/L (97-110); CREATININE 0.71 mg/dl (0.61-1.24); GLUCOSE 95 mg/dl (70-220); INR 1.15; POTASSIUM 3.4 mmol/L (3.5-5.1); PROTIME 14.9 Sec (11.9-14.9); PT RATIO 1.2; SODIUM 138 mmol/L (135-144)
[2018-07-14 02:14] LABS: PARTIAL THROMBOPLASTIN TIME 38.7 Sec (25.0-35.0)
[2018-07-14 02:25] LABS: B-TYPE NATRIURETIC PEPTIDE 3540 PG/ML (0-450); TROPONIN-I 0.058 ng/ml (0.000-0.120)
[2018-07-14 02:38] LABS: DIGOXIN 0.6 ng/ml (1.0-2.0)
[2018-07-14] MEDS: POTASSIUM CHLORIDE (SR) 20 MEQ TAB PO (03:25)
[2018-07-14] MEDS ORDERED: IPRATROPIUM ALBUTEROL INHALATION (06:30)
[2018-07-14] MEDS ORDERED: ONDANSETRON 4 MG INJ IV (06:30)
[2018-07-14] MEDS ORDERED: NACL 0.9% 3 ML SYG IV (06:30)
[2018-07-14 07:40] LABS: CREATINE KINASE < 20 IU/L (23-200)
[2018-07-14 07:48] LABS: CK-MB 1.08 ng/ml (0.0-2.4)
[2018-07-14 07:51] LABS: TROPONIN-I 0.056 ng/ml (0.000-0.120)
[2018-07-14 08:23] LABS: IRON 31 ug/dl (35-150)
[2018-07-14] MEDS: POTASSIUM CHLORIDE (SR) 8 MEQ CAP PO (08:29)
[2018-07-14] MEDS: CHOLECALCIFEROL 400 UNITS TAB PO (08:30)
[2018-07-14] MEDS: APIXABAN 5 MG TABLET PO ×2 (08:30→20:55)
[2018-07-14] MEDS: FISH OIL 1,000 MG CAP PO ×3 (08:30→20:54)
[2018-07-14] MEDS: FERROUS SULFATE (EC) 325 MG TAB PO ×2 (08:30→20:54)
[2018-07-14 08:32] LABS: % IRON SATURATION 15 % SAT (22-52); TOTAL IRON BINDING CAPACITY 213 ug/dl (241-421)
[2018-07-14] MEDS: FUROSEMIDE 20 MG TAB PO ×2 (08:32→18:09)
[2018-07-14] MEDS ORDERED: OMEGA PO (09:00)
[2018-07-14] MEDS ORDERED: FATTY ACIDS PO (09:00)
[2018-07-14] MEDS ORDERED: [UNRECOGNIZED DRUG - OTHER] PO (09:00)
[2018-07-14] MEDS ORDERED: FISH OIL PO (09:00)
[2018-07-14] MEDS: DIGOXIN 0.125 MG TAB PO (12:24)
[2018-07-14 13:01] LABS: CREATINE KINASE 20 IU/L (23-200)
[2018-07-14 13:14] LABS: CK INDEX 5.2; CK-MB 1.04 ng/ml (0.0-2.4); TROPONIN-I 0.025 ng/ml (0.000-0.120)
[2018-07-15 06:53] LABS: ADD MAN DIFF? NO
[2018-07-15] MEDS: FUROSEMIDE 20 MG TAB PO ×2 (06:55→17:11)
[2018-07-15 06:56] LABS: ABNORMAL IP MESSAGE 1; BASOPHILS % 0.5 % (0.0-2.0); EOSINOPHILS # 0.1 10^3/ul (0.0-0.5); EOSINOPHILS % 1.4 % (0.0-7.0); HEMATOCRIT 28.8 % (42.0-52.0); HEMOGLOBIN 9.2 g/dl (14.0-18.0); LYMPHOCYTES # 0.6 10^3/ul (0.8-2.9); LYMPHOCYTES % 13.3 % (15.0-51.0); MEAN CORPUSCULAR HEMOGLOBIN 30.5 pg (29.0-33.0); MEAN CORPUSCULAR HGB CONC 31.9 g/dl (32.0-37.0); MEAN CORPUSCULAR VOLUME 95.4 fl (82.0-101.0); MONOCYTE # 0.3 10^3/ul (0.3-0.9); MONOCYTES % 7.4 % (0.0-11.0); NEUTROPHIL # 3.2 10^3/ul (1.6-7.5); NEUTROPHILS % 76.9 % (39.0-77.0); PLATELET COUNT 162 10^3/UL (140-415); POSITIVE DIFF @See below; RED BLOOD COUNT 3.02 10^6/ul (4.70-6.10)
[2018-07-15 06:56] LABS: WHITE BLOOD COUNT 4.2 10^3/ul (4.8-10.8)
[2018-07-15 07:26] LABS: ALANINE AMINOTRANSFERASE 24 IU/L (13-69); ALBUMIN/GLOBULIN RATIO 0.66; ALKALINE PHOSPHATASE 147 IU/L (42-121); ANION GAP 6 (8-16); ASPARTATE AMINO TRANSFERASE 17 IU/L (15-46); BILIRUBIN,INDIRECT 0.8 mg/dl (0-1.1); BILIRUBIN,TOTAL 0.8 mg/dl (0.2-1.3); BLOOD UREA NITROGEN 11 mg/dl (7-20); CALCIUM 7.5 mg/dl (8.4-10.2); CARBON DIOXIDE 30 mmol/L (21-31); CHLORIDE 102 mmol/L (97-110); CHOL/HDL RATIO 2.4 RATIO; CHOLESTEROL 94 mg/dl (100-200); CREATININE 0.62 mg/dl (0.61-1.24); GLUCOSE 90 mg/dl (70-220); HDL CHOLESTEROL 39 mg/dl (31-75); LDL CHOLESTEROL,CALCULATED 42 mg/dl; MAGNESIUM 1.9 mg/dl (1.7-2.5); POTASSIUM 3.6 mmol/L (3.5-5.1); SODIUM 134 mmol/L (135-144); TRIGLYCERIDES 64 mg/dl (0-149)
[2018-07-15] MEDS: CHOLECALCIFEROL 400 UNITS TAB PO (09:25)
[2018-07-15] MEDS: POTASSIUM CHLORIDE (SR) 8 MEQ CAP PO (09:25)
[2018-07-15] MEDS: FISH OIL 1,000 MG CAP PO ×3 (09:25→21:16)
[2018-07-15] MEDS: ACETAMINOPHEN 325 MG TAB PO (09:25)
[2018-07-15] MEDS: FERROUS SULFATE (EC) 325 MG TAB PO ×2 (09:25→21:16)
[2018-07-15] MEDS: APIXABAN 5 MG TABLET PO ×2 (09:25→21:16)
[2018-07-15] MEDS: MAGNESIUM HYDROXIDE 30ML CUP PO (11:19)
[2018-07-15] MEDS: DIGOXIN 0.25 MG TAB PO (11:19)
[2018-07-15] MEDS: METOPROLOL 25 MG TAB PO ×2 (11:19→21:21)
[2018-07-15] MEDS: POTASSIUM CHLORIDE (SR) 20 MEQ TAB PO (11:19)
[2018-07-15] MEDS: DIGOXIN 0.125 MG TAB PO (14:42)
[2018-07-15] MEDS: ERGOCALCIFEROL (8000 UNITS/ML PO SYG) PO (14:42)
[2018-07-15 16:36] LABS: HEMOGLOBIN A1C 4.8 % (0-5.9)
[2018-07-15] MEDS: SOD FERRIC GLUC COMPLX 125 MG in SOD CHLORIDE 0.9% 100 ML IVPB (17:09)
[2018-07-16] MEDS: FUROSEMIDE 20 MG TAB PO ×3 (06:25→17:07)
[2018-07-16 07:05] LABS: ADD MAN DIFF? NO
[2018-07-16 07:07] LABS: WHITE BLOOD COUNT 3.8 10^3/ul (4.8-10.8)
[2018-07-16 07:07] LABS: BASOPHILS % 0.5 % (0.0-2.0); EOSINOPHILS # 0.1 10^3/ul (0.0-0.5); EOSINOPHILS % 3.4 % (0.0-7.0); HEMATOCRIT 26.9 % (42.0-52.0); HEMOGLOBIN 8.6 g/dl (14.0-18.0); LYMPHOCYTES # 0.8 10^3/ul (0.8-2.9); LYMPHOCYTES % 21.5 % (15.0-51.0); MEAN CORPUSCULAR HEMOGLOBIN 30.3 pg (29.0-33.0); MEAN CORPUSCULAR VOLUME 94.7 fl (82.0-101.0); MEAN PLATELET VOLUME 10.3 fl (7.4-10.4); MONOCYTE # 0.3 10^3/ul (0.3-0.9); MONOCYTES % 6.6 % (0.0-11.0); NEUTROPHIL # 2.5 10^3/ul (1.6-7.5); NEUTROPHILS % 67.2 % (39.0-77.0); PLATELET COUNT 149 10^3/UL (140-415); POSITIVE DIFF @See below; RED BLOOD COUNT 2.84 10^6/ul (4.70-6.10); RED CELL DISTRIBUTION WIDTH 17.2 % (11.5-14.5)
[2018-07-16 07:41] LABS: MAGNESIUM 2.1 mg/dl (1.7-2.5)
[2018-07-16 07:55] LABS: ANION GAP 6 (8-16); BLOOD UREA NITROGEN 11 mg/dl (7-20); CALCIUM 7.6 mg/dl (8.4-10.2); CARBON DIOXIDE 30 mmol/L (21-31); CHLORIDE 102 mmol/L (97-110); CREATININE 0.59 mg/dl (0.61-1.24); GLUCOSE 88 mg/dl (70-220); POTASSIUM 4.1 mmol/L (3.5-5.1); SODIUM 134 mmol/L (135-144)
[2018-07-16] MEDS: FERROUS SULFATE (EC) 325 MG TAB PO ×2 (09:52→21:09)
[2018-07-16] MEDS: ERGOCALCIFEROL 50,000 UNIT CAP PO (09:52)
[2018-07-16] MEDS: CHOLECALCIFEROL 400 UNITS TAB PO (09:52)
[2018-07-16] MEDS: FISH OIL 1,000 MG CAP PO ×2 (09:52→21:08)
[2018-07-16] MEDS: POTASSIUM CHLORIDE (SR) 8 MEQ CAP PO (09:52)
[2018-07-16] MEDS: APIXABAN 5 MG TABLET PO ×2 (09:53→21:09)
[2018-07-16] MEDS: METOPROLOL 25 MG TAB PO ×2 (09:53→21:00)
[2018-07-16 10:06] LABS: ANISOCYTOSIS 1+ (0-0); BAND NEUTROPHILS #M 0.1 10^3/ul (0.0-0.6); BAND NEUTROPHILS % (M) 3 % (0-4); ERYTHROBLAST% (NRBC) (M) 1 % (0-0); GIANT THROMBO% (M) 1 % (0-0); LYMPHOCYTES #M 0.4 10^3/ul (0.8-2.9); LYMPHOCYTES % (M) 13 % (15-51); MONOCYTES % (M) 2 % (0-11); OVALOCYTES 1+ (0-0); PLATELET ESTIMATE NORMAL; POIKILOCYTOSIS 2+ (0-0); POLYCHROMASIA 1+ (0-0); REACTIVE LYMPHOCYTES #M 0.1 10^3/ul (0.0-0.0); REACTIVE LYMPHOCYTES% (M) 3 % (0-0); SEGMENTED NEUTROPHILS (M) % 79 % (39-77); SMUDGE%M 16 % (0-0)
[2018-07-16] MEDS: FINASTERIDE 5 MG TAB PO (12:41)
[2018-07-16] MEDS: DIGOXIN 0.125 MG TAB PO (12:42)
[2018-07-16 16:56] LABS: OCCULT BLOOD STOOL NEGATIVE (NEGATIVE)
[2018-07-16] MEDS: TAMSULOSIN (SR) 0.4 MG CAP PO (21:08)
[2018-07-17] MEDS: FUROSEMIDE 20 MG TAB PO (05:50)
[2018-07-17 07:20] LABS: ADD MAN DIFF? NO
[2018-07-17 07:29] LABS: WHITE BLOOD COUNT 3.8 10^3/ul (4.8-10.8)
[2018-07-17 07:29] LABS: BASOPHILS % 0.5 % (0.0-2.0); EOSINOPHILS # 0.1 10^3/ul (0.0-0.5); EOSINOPHILS % 3.1 % (0.0-7.0); HEMATOCRIT 25.8 % (42.0-52.0); HEMOGLOBIN 8.2 g/dl (14.0-18.0); LYMPHOCYTES # 0.8 10^3/ul (0.8-2.9); LYMPHOCYTES % 19.6 % (15.0-51.0); MEAN CORPUSCULAR HEMOGLOBIN 30.5 pg (29.0-33.0); MEAN CORPUSCULAR HGB CONC 31.8 g/dl (32.0-37.0); MEAN CORPUSCULAR VOLUME 95.9 fl (82.0-101.0); MEAN PLATELET VOLUME 10.7 fl (7.4-10.4); MONOCYTE # 0.2 10^3/ul (0.3-0.9); MONOCYTES % 6.3 % (0.0-11.0); NEUTROPHIL # 2.7 10^3/ul (1.6-7.5); PLATELET COUNT 158 10^3/UL (140-415); RED BLOOD COUNT 2.69 10^6/ul (4.70-6.10)
[2018-07-17 07:45] LABS: ANION GAP 5 (8-16)
[2018-07-17 08:03] LABS: BLOOD UREA NITROGEN 14 mg/dl (7-20); CALCIUM 7.5 mg/dl (8.4-10.2); CARBON DIOXIDE 30 mmol/L (21-31); CHLORIDE 102 mmol/L (97-110); GLUCOSE 87 mg/dl (70-220); POTASSIUM 3.8 mmol/L (3.5-5.1); SODIUM 133 mmol/L (135-144)
[2018-07-17] MEDS: METOPROLOL 25 MG TAB PO (08:58)
[2018-07-17] MEDS: FISH OIL 1,000 MG CAP PO ×2 (08:59→23:03)
[2018-07-17] MEDS: FERROUS SULFATE (EC) 325 MG TAB PO ×2 (08:59→23:03)
[2018-07-17] MEDS: CHOLECALCIFEROL 400 UNITS TAB PO (08:59)
[2018-07-17] MEDS: APIXABAN 5 MG TABLET PO ×2 (09:00→23:06)
[2018-07-17] MEDS: FINASTERIDE 5 MG TAB PO (09:00)
[2018-07-17] MEDS: POTASSIUM CHLORIDE (SR) 8 MEQ CAP PO (09:00)
[2018-07-17] MEDS: DIGOXIN 0.125 MG TAB PO (13:11)
[2018-07-17] MEDS: ALBUTEROL/IPRATROPIUM (NEB) 3 ML AMP HHN (15:07)
[2018-07-17] MEDS: BARIUM SULF 2% 450 ML BTL (BERRY SMOOTHIE) PO (15:30)
[2018-07-17] MEDS: FUROSEMIDE 40 MG TAB PO (17:05)
[2018-07-17] MEDS: TAMSULOSIN (SR) 0.4 MG CAP PO (21:00)
[2018-07-17] MEDS: FUROSEMIDE 40 MG INJ IV (23:06)
[2018-07-17] MEDS: IODIXANOL LOCM 100 ML BTL (23:07)
[2018-07-17] MEDS: SOD CHLORIDE 0.9% 100 ML (23:07)
[2018-07-18] MEDS: FUROSEMIDE 40 MG INJ IV (06:34)
[2018-07-18 06:35] LABS: ADD MAN DIFF? NO
[2018-07-18 06:47] LABS: BASOPHILS % 0.5 % (0.0-2.0); EOSINOPHILS # 0.1 10^3/ul (0.0-0.5); EOSINOPHILS % 2.6 % (0.0-7.0); HEMATOCRIT 26.6 % (42.0-52.0); HEMOGLOBIN 8.4 g/dl (14.0-18.0); LYMPHOCYTES # 0.7 10^3/ul (0.8-2.9); LYMPHOCYTES % 16.5 % (15.0-51.0); MEAN CORPUSCULAR HEMOGLOBIN 30.2 pg (29.0-33.0); MEAN CORPUSCULAR HGB CONC 31.6 g/dl (32.0-37.0); MEAN CORPUSCULAR VOLUME 95.7 fl (82.0-101.0); MEAN PLATELET VOLUME 10.1 fl (7.4-10.4); MONOCYTE # 0.3 10^3/ul (0.3-0.9); MONOCYTES % 6.4 % (0.0-11.0); NEUTROPHIL # 3.1 10^3/ul (1.6-7.5); NEUTROPHILS % 73.3 % (39.0-77.0); PLATELET COUNT 162 10^3/UL (140-415); POSITIVE DIFF @See below; RED BLOOD COUNT 2.78 10^6/ul (4.70-6.10)
[2018-07-18 06:47] LABS: WHITE BLOOD COUNT 4.2 10^3/ul (4.8-10.8)
[2018-07-18 07:05] LABS: ANION GAP 5 (8-16); BLOOD UREA NITROGEN 12 mg/dl (7-20); CALCIUM 7.7 mg/dl (8.4-10.2); CARBON DIOXIDE 35 mmol/L (21-31); CHLORIDE 99 mmol/L (97-110); CREATININE 0.66 mg/dl (0.61-1.24); GLUCOSE 91 mg/dl (70-220); POTASSIUM 4.2 mmol/L (3.5-5.1); SODIUM 135 mmol/L (135-144)
[2018-07-18] MEDS: POTASSIUM CHLORIDE (SR) 8 MEQ CAP PO (07:53)
[2018-07-18] MEDS: FINASTERIDE 5 MG TAB PO (07:53)
[2018-07-18] MEDS: FERROUS SULFATE (EC) 325 MG TAB PO ×2 (07:53→20:06)
[2018-07-18] MEDS: FISH OIL 1,000 MG CAP PO ×2 (07:53→20:06)
[2018-07-18] MEDS: CHOLECALCIFEROL 400 UNITS TAB PO (07:54)
[2018-07-18] MEDS: APIXABAN 5 MG TABLET PO ×2 (07:54→20:07)
[2018-07-18 08:46] LABS: ANISOCYTOSIS 1+ (0-0); BAND NEUTROPHILS #M 0.4 10^3/ul (0.0-0.6); BAND NEUTROPHILS % (M) 11 % (0-4); EOSINOPHILS % (M) 2 % (0-7); LYMPHOCYTES #M 0.3 10^3/ul (0.8-2.9); LYMPHOCYTES % (M) 9 % (15-51); MICROCYTOSIS 1+ (0-0); MONOCYTES % (M) 1 % (0-11); PLATELET ESTIMATE NORMAL; PLATELET MORPHOLOGY COMMENT @See below; POLYCHROMASIA 1+ (0-0); REACTIVE LYMPHOCYTES% (M) 1 % (0-0); SEG NEUT #M 3.2 10^3/ul (1.6-7.5); SEGMENTED NEUTROPHILS (M) % 76 % (39-77); SMUDGE%M 20 % (0-0)
[2018-07-18 11:46] LABS: PROSTATE SPECIFIC ANTIGEN 0.7 ng/ml (0.0-4.0)
[2018-07-18] MEDS: DIGOXIN 0.125 MG TAB PO (12:08)
[2018-07-18] MEDS: ALBUMIN HUMAN 25% 100 ML IV ×2 (12:09→20:05)
[2018-07-18] MEDS: ACETAMINOPHEN 325 MG TAB PO (15:20)
[2018-07-18] MEDS: BUMETANIDE 1 MG TAB PO (18:38)
[2018-07-18] MEDS: TAMSULOSIN (SR) 0.4 MG CAP PO (20:06)
[2018-07-19] MEDS: ALBUMIN HUMAN 25% 100 ML IV (03:51)
[2018-07-19] MEDS: BUMETANIDE 1 MG TAB PO ×2 (05:42→17:58)
[2018-07-19 06:52] LABS: WHITE BLOOD COUNT 2.8 10^3/ul (4.8-10.8)
[2018-07-19 06:52] LABS: HEMATOCRIT 22.7 % (42.0-52.0); HEMOGLOBIN 7.2 g/dl (14.0-18.0); MEAN CORPUSCULAR HEMOGLOBIN 30.1 pg (29.0-33.0); MEAN CORPUSCULAR HGB CONC 31.7 g/dl (32.0-37.0); MEAN PLATELET VOLUME 10.1 fl (7.4-10.4); PLATELET COUNT 123 10^3/UL (140-415); POSITIVE DIFF @See below; RED BLOOD COUNT 2.39 10^6/ul (4.70-6.10)
[2018-07-19 06:54] LABS: ADD MAN DIFF? YES
[2018-07-19 07:10] LABS: ANION GAP 8 (8-16); BLOOD UREA NITROGEN 11 mg/dl (7-20); CALCIUM 7.8 mg/dl (8.4-10.2); CARBON DIOXIDE 33 mmol/L (21-31); CHLORIDE 97 mmol/L (97-110); CREATININE 0.58 mg/dl (0.61-1.24); GLUCOSE 89 mg/dl (70-220); POTASSIUM 3.1 mmol/L (3.5-5.1); SODIUM 135 mmol/L (135-144)
[2018-07-19] MEDS: FISH OIL 1,000 MG CAP PO ×2 (08:27→20:18)
[2018-07-19] MEDS: FERROUS SULFATE (EC) 325 MG TAB PO ×2 (08:27→20:18)
[2018-07-19] MEDS: CHOLECALCIFEROL 400 UNITS TAB PO (08:27)
[2018-07-19] MEDS: POTASSIUM CHLORIDE (SR) 8 MEQ CAP PO (08:27)
[2018-07-19] MEDS: FINASTERIDE 5 MG TAB PO (08:27)
[2018-07-19] MEDS: APIXABAN 5 MG TABLET PO ×2 (08:27→20:18)
[2018-07-19] MEDS: POTASSIUM CHLORIDE (SR) 20 MEQ TAB PO ×2 (10:00→14:13)
[2018-07-19 11:22] LABS: HEMATOCRIT 24.4 % (42.0-52.0); HEMOGLOBIN 7.8 g/dl (14.0-18.0)
[2018-07-19] MEDS: DIGOXIN 0.125 MG TAB PO (14:14)
[2018-07-19] MEDS: SOD FERRIC GLUC COMPLX 125 MG in SOD CHLORIDE 0.9% 100 ML IVPB (17:58)
[2018-07-19] MEDS: TAMSULOSIN (SR) 0.4 MG CAP PO (20:18)
[2018-07-20] MEDS: BUMETANIDE 1 MG TAB PO ×2 (06:03→17:36)
[2018-07-20 07:12] LABS: WHITE BLOOD COUNT 3.9 10^3/ul (4.8-10.8)
[2018-07-20 07:12] LABS: HEMATOCRIT 25.5 % (42.0-52.0); HEMOGLOBIN 8.2 g/dl (14.0-18.0); MEAN CORPUSCULAR HEMOGLOBIN 30.6 pg (29.0-33.0); MEAN CORPUSCULAR HGB CONC 32.2 g/dl (32.0-37.0); MEAN CORPUSCULAR VOLUME 95.1 fl (82.0-101.0); MEAN PLATELET VOLUME 10.3 fl (7.4-10.4); PLATELET COUNT 151 10^3/UL (140-415); POSITIVE DIFF @See below; RED BLOOD COUNT 2.68 10^6/ul (4.70-6.10); RED CELL DISTRIBUTION WIDTH 17.2 % (11.5-14.5)
[2018-07-20 07:19] LABS: ADD MAN DIFF? YES
[2018-07-20 07:28] LABS: ANION GAP 9 (8-16); BLOOD UREA NITROGEN 9 mg/dl (7-20); CALCIUM 7.8 mg/dl (8.4-10.2); CARBON DIOXIDE 33 mmol/L (21-31); CHLORIDE 98 mmol/L (97-110); GLUCOSE 89 mg/dl (70-220); POTASSIUM 4.1 mmol/L (3.5-5.1); SODIUM 136 mmol/L (135-144)
[2018-07-20] MEDS: APIXABAN 5 MG TABLET PO (08:44)
[2018-07-20] MEDS: FINASTERIDE 5 MG TAB PO (08:44)
[2018-07-20] MEDS: CHOLECALCIFEROL 400 UNITS TAB PO (08:44)
[2018-07-20] MEDS: FERROUS SULFATE (EC) 325 MG TAB PO (08:44)
[2018-07-20] MEDS: FISH OIL 1,000 MG CAP PO (08:45)
[2018-07-20] MEDS: POTASSIUM CHLORIDE (SR) 8 MEQ CAP PO (08:46)
[2018-07-20 09:43] LABS: ANISOCYTOSIS 1+ (0-0); BAND NEUTROPHILS % (M) 2 % (0-4); BASOPHILS % (M) 1 % (0-2); LYMPHOCYTES #M 0.3 10^3/ul (0.8-2.9); LYMPHOCYTES % (M) 10 % (15-51); MONOCYTES % (M) 2 % (0-11); PLATELET ESTIMATE NORMAL; POIKILOCYTOSIS 1+ (0-0); SEG NEUT #M 3.3 10^3/ul (1.6-7.5); SEGMENTED NEUTROPHILS (M) % 85 % (39-77); SMUDGE%M 37 % (0-0)
[2018-07-20] MEDS: DIGOXIN 0.125 MG TAB PO (12:19)
[2018-07-20] MEDS: SOD FERRIC GLUC COMPLX 125 MG in SOD CHLORIDE 0.9% 100 ML IVPB (17:36)
== END 2018-07-20 21:25 | disposition home health service (06) | DRG 292 ==
LOC: E/R 22:22 → TEL 07-18 22:14
DX: I11.0 Hypertensive heart disease with heart failure (principal); E87.1 Hypo-osmolality and hyponatremia; D61.818 Other pancytopenia; I27.20 Pulmonary hypertension, unspecified; I25.10 Atherosclerotic heart disease of native coronary artery without angina pectoris; E78.5 Hyperlipidemia, unspecified; E87.6 Hypokalemia; I35.0 Nonrheumatic aortic (valve) stenosis; I36.1 Nonrheumatic tricuspid (valve) insufficiency; I48.0 Paroxysmal atrial fibrillation; D50.9 Iron deficiency anemia, unspecified; E55.9 Vitamin D deficiency, unspecified; I50.23 Acute on chronic systolic (congestive) heart failure; I25.5 Ischemic cardiomyopathy; Z79.02 Long term (current) use of antithrombotics/antiplatelets; E88.09 Other disorders of plasma-protein metabolism, not elsewhere classified
CPT/HCPCS: 36415; 71045; 71250; 71260; 73510; 74176; 80048; 80053; 80061; 80162; 82270; 82550; 82553; 82607; 82728; 83036; 83540; 83735; 83880; 84153; 84154; 84443; 84484; 85014; 85018; 85025; 85610; 85730; 93005; 93970; 97110; 97116; 97161; 97530; 99285-25; G0378

== ENCOUNTER 2018-12-25 14:47 | Inpatient (IN) | payer OTHER ==
[2018-12-25 17:02] LABS: WHITE BLOOD COUNT 3.1 10^3/ul (4.8-10.8)
[2018-12-25 17:02] LABS: MEAN CORPUSCULAR HEMOGLOBIN 33.8 pg (29.0-33.0); MEAN CORPUSCULAR HGB CONC 30.4 g/dl (32.0-37.0); MEAN CORPUSCULAR VOLUME 111.1 fl (82.0-101.0); MEAN PLATELET VOLUME 9.9 fl (7.4-10.4); PLATELET COUNT 156 10^3/UL (140-415); POSITIVE DIFF @See below; RED BLOOD COUNT 2.07 10^6/ul (4.70-6.10); RED CELL DISTRIBUTION WIDTH 16.1 % (11.5-14.5)
[2018-12-25 17:09] LABS: ADD MAN DIFF? YES
[2018-12-25 17:19] LABS: INR 1.17; PT RATIO 1.2
[2018-12-25 17:20] LABS: PARTIAL THROMBOPLASTIN TIME 39.1 Sec (23.0-35.0)
[2018-12-25 17:23] LABS: ALANINE AMINOTRANSFERASE 17 IU/L (13-69); ALBUMIN 2.9 g/dl (3.3-4.9); ALBUMIN/GLOBULIN RATIO 0.76; ALKALINE PHOSPHATASE 176 IU/L (42-121); ANION GAP 5 (5-13); ASPARTATE AMINO TRANSFERASE 27 IU/L (15-46); BILIRUBIN,INDIRECT 4.1 mg/dl (0-1.1); BILIRUBIN,TOTAL 4.1 mg/dl (0.2-1.3); BLOOD UREA NITROGEN 18 mg/dl (7-20); CARBON DIOXIDE 34 mmol/L (21-31); CHLORIDE 95 mmol/L (97-110); CREATININE 0.76 mg/dl (0.61-1.24); GLUCOSE 111 mg/dl (70-220); POTASSIUM 3.5 mmol/L (3.5-5.1); SODIUM 134 mmol/L (135-144); TOTAL PROTEIN 6.7 g/dl (6.1-8.1)
[2018-12-25 17:27] LABS: DIGOXIN 1.1 ng/ml (1.0-2.0)
[2018-12-25 17:35] LABS: B-TYPE NATRIURETIC PEPTIDE 4580 PG/ML (0-450); TROPONIN-I < 0.012 ng/ml (0.000-0.120)
[2018-12-25 18:41] LABS: ANISOCYTOSIS 2+ (0-0); BASOPHILS % (M) 1 % (0-2); EOSINOPHILS % (M) 1 % (0-7); GIANT THROMBO% (M) 2 % (0-0); HYPOCHROMASIA 1+ (0-0); LYMPHOCYTES #M 0.5 10^3/ul (0.8-2.9); LYMPHOCYTES % (M) 19 % (15-51); MONOCYTES % (M) 3 % (0-11); OVALOCYTES 1+ (0-0); PLATELET ESTIMATE NORMAL; POIKILOCYTOSIS 1+ (0-0); POLYCHROMASIA 2+ (0-0); SEGMENTED NEUTROPHILS (M) % 76 % (39-77); SMUDGE%M 4 % (0-0); TEAR DROP CELLS 1+ (0-0)
[2018-12-26] MEDS ORDERED: ONDANSETRON 4 MG INJ IV
[2018-12-26] MEDS ORDERED: ALBUTEROL/IPRATROPIUM (NEB) 3 ML AMP HHN
[2018-12-26] MEDS ORDERED: NACL 0.9% 3 ML SYG IV
[2018-12-26] MEDS: FISH OIL 1,000 MG CAP PO ×2 (00:13→08:22)
[2018-12-26] MEDS: BUMETANIDE 1 MG TAB PO (05:22)
[2018-12-26 06:26] LABS: ADD MAN DIFF? NO
[2018-12-26 06:31] LABS: WHITE BLOOD COUNT 2.3 10^3/ul (4.8-10.8)
[2018-12-26 06:31] LABS: ABNORMAL IP MESSAGE 1; BASOPHILS % 0.9 % (0.0-2.0); EOSINOPHILS # 0.1 10^3/ul (0.0-0.5); EOSINOPHILS % 2.6 % (0.0-7.0); HEMATOCRIT 19.4 % (42.0-52.0); LYMPHOCYTES # 0.6 10^3/ul (0.8-2.9); LYMPHOCYTES % 25.6 % (15.0-51.0); MEAN CORPUSCULAR HEMOGLOBIN 34.7 pg (29.0-33.0); MEAN CORPUSCULAR HGB CONC 30.9 g/dl (32.0-37.0); MEAN CORPUSCULAR VOLUME 112.1 fl (82.0-101.0); MEAN PLATELET VOLUME 9.9 fl (7.4-10.4); MONOCYTE # 0.2 10^3/ul (0.3-0.9); MONOCYTES % 6.4 % (0.0-11.0); NEUTROPHIL # 1.5 10^3/ul (1.6-7.5); NEUTROPHILS % 64.1 % (39.0-77.0); PLATELET COUNT 141 10^3/UL (140-415); POSITIVE DIFF @See below; RED BLOOD COUNT 1.73 10^6/ul (4.70-6.10); RED CELL DISTRIBUTION WIDTH 15.9 % (11.5-14.5)
[2018-12-26 07:04] LABS: ALANINE AMINOTRANSFERASE 22 IU/L (13-69); ALBUMIN 2.3 g/dl (3.3-4.9); ALBUMIN/GLOBULIN RATIO 0.71; ALKALINE PHOSPHATASE 144 IU/L (42-121); ANION GAP 3 (5-13); ASPARTATE AMINO TRANSFERASE 21 IU/L (15-46); BILIRUBIN,INDIRECT 3.8 mg/dl (0-1.1); BILIRUBIN,TOTAL 3.8 mg/dl (0.2-1.3); BLOOD UREA NITROGEN 17 mg/dl (7-20); CALCIUM 7.7 mg/dl (8.4-10.2); CARBON DIOXIDE 34 mmol/L (21-31); CHLORIDE 97 mmol/L (97-110); CHOL/HDL RATIO 2.3 RATIO; CHOLESTEROL 86 mg/dl (100-200); CREATININE 0.71 mg/dl (0.61-1.24); GLUCOSE 86 mg/dl (70-220); HDL CHOLESTEROL 37 mg/dl (31-75); LDL CHOLESTEROL,CALCULATED 40 mg/dl; POTASSIUM 3.7 mmol/L (3.5-5.1); SODIUM 134 mmol/L (135-144); TOTAL PROTEIN 5.5 g/dl (6.1-8.1); TRIGLYCERIDES 47 mg/dl (0-149)
[2018-12-26 07:13] LABS: PATH REVIEW? YES
[2018-12-26 08:12] LABS: IRON 85 ug/dl (35-150)
[2018-12-26 08:18] LABS: DIGOXIN 0.9 ng/ml (1.0-2.0)
[2018-12-26 08:22] LABS: % IRON SATURATION 36 % SAT (22-52); TOTAL IRON BINDING CAPACITY 236 ug/dl (241-421)
[2018-12-26] MEDS: DIGOXIN 0.125 MG TAB PO (08:22)
[2018-12-26] MEDS: FERROUS SULFATE (EC) 325 MG TAB PO (08:22)
[2018-12-26] MEDS: CHOLECALCIFEROL 400 UNITS TAB PO (08:22)
[2018-12-26] MEDS: FINASTERIDE 5 MG TAB PO (08:22)
[2018-12-26] MEDS: POTASSIUM CHLORIDE (SR) 8 MEQ CAP PO (08:22)
[2018-12-26 09:11] LABS: ANISOCYTOSIS 2+ (0-0); BAND NEUTROPHILS #M 0.1 10^3/ul (0.0-0.6); BAND NEUTROPHILS % (M) 6 % (0-4); BASOPHILS % (M) 1 % (0-2); EOSINOPHILS % (M) 4 % (0-7); HYPOCHROMASIA 1+ (0-0); LYMPHOCYTES #M 0.3 10^3/ul (0.8-2.9); LYMPHOCYTES % (M) 15 % (15-51); MONOCYTES % (M) 4 % (0-11); PLATELET ESTIMATE NORMAL; POIKILOCYTOSIS 1+ (0-0); POLYCHROMASIA 2+ (0-0); REACTIVE LYMPHOCYTES% (M) 2 % (0-0); SEG NEUT #M 1.6 10^3/ul (1.6-7.5); SEGMENTED NEUTROPHILS (M) % 68 % (39-77); SMUDGE%M 6 % (0-0); TARGET CELLS 1+ (0-0)
[2018-12-26] MEDS: PANTOPRAZOLE 40 MG INJ IV ×2 (15:00→20:17)
[2018-12-26] MEDS: TAMSULOSIN (SR) 0.4 MG CAP PO (20:14)
[2018-12-26] MEDS: D5W-0.45 NACL + KCL 10 MEQ 1,000 ML IV (21:21)
[2018-12-26] MEDS: MIDODRINE 5 MG TAB PO (22:50)
[2018-12-27 01:04] LABS: HEMOGLOBIN 8.6 g/dl (14.0-18.0)
[2018-12-27] MEDS: ALBUMIN HUMAN 25% 100 ML IV (04:09)
[2018-12-27] MEDS: PANTOPRAZOLE 40 MG INJ IV ×2 (04:53→18:36)
[2018-12-27 06:41] LABS: ADD MAN DIFF? NO
[2018-12-27 06:49] LABS: WHITE BLOOD COUNT 2.7 10^3/ul (4.8-10.8)
[2018-12-27 06:49] LABS: ABNORMAL IP MESSAGE 1; BASOPHILS % 0.7 % (0.0-2.0); EOSINOPHILS # 0.1 10^3/ul (0.0-0.5); EOSINOPHILS % 2.2 % (0.0-7.0); HEMATOCRIT 24.5 % (42.0-52.0); HEMOGLOBIN 7.9 g/dl (14.0-18.0); LYMPHOCYTES # 0.5 10^3/ul (0.8-2.9); LYMPHOCYTES % 17.5 % (15.0-51.0); MEAN CORPUSCULAR HEMOGLOBIN 33.6 pg (29.0-33.0); MEAN CORPUSCULAR HGB CONC 32.2 g/dl (32.0-37.0); MEAN CORPUSCULAR VOLUME 104.3 fl (82.0-101.0); MEAN PLATELET VOLUME 10.2 fl (7.4-10.4); MONOCYTE # 0.2 10^3/ul (0.3-0.9); MONOCYTES % 7.1 % (0.0-11.0); NEUTROPHIL # 1.9 10^3/ul (1.6-7.5); NEUTROPHILS % 71.4 % (39.0-77.0); PLATELET COUNT 127 10^3/UL (140-415); POSITIVE DIFF @See below; RED BLOOD COUNT 2.35 10^6/ul (4.70-6.10); RED CELL DISTRIBUTION WIDTH 19.7 % (11.5-14.5)
[2018-12-27 07:11] LABS: ALANINE AMINOTRANSFERASE 21 IU/L (13-69); ALBUMIN 2.6 g/dl (3.3-4.9); ALBUMIN/GLOBULIN RATIO 0.83; ALKALINE PHOSPHATASE 140 IU/L (42-121); ANION GAP 6 (5-13); ASPARTATE AMINO TRANSFERASE 18 IU/L (15-46); BILIRUBIN,INDIRECT 4.5 mg/dl (0-1.1); BILIRUBIN,TOTAL 4.5 mg/dl (0.2-1.3); BLOOD UREA NITROGEN 15 mg/dl (7-20); CALCIUM 7.8 mg/dl (8.4-10.2); CARBON DIOXIDE 33 mmol/L (21-31); CHLORIDE 96 mmol/L (97-110); GLUCOSE 91 mg/dl (70-220); POTASSIUM 3.6 mmol/L (3.5-5.1); SODIUM 135 mmol/L (135-144); TOTAL PROTEIN 5.7 g/dl (6.1-8.1)
[2018-12-27 07:13] LABS: PHOSPHORUS 3.3 mg/dl (2.5-4.9)
[2018-12-27 07:13] LABS: MAGNESIUM 2.2 mg/dl (1.7-2.5)
[2018-12-27] MEDS: FINASTERIDE 5 MG TAB PO (09:09)
[2018-12-27] MEDS: POTASSIUM CHLORIDE (SR) 8 MEQ CAP PO (09:09)
[2018-12-27] MEDS: DIGOXIN 0.125 MG TAB PO (09:09)
[2018-12-27] MEDS: SOD CHLORIDE 0.9% 250 ML IV* (15:02)
[2018-12-27] MEDS: POTASSIUM CHLORIDE 100 ML IVPB (15:22)
[2018-12-27] MEDS: D5W-0.45 NACL + KCL 10 MEQ 1,000 ML IV (15:30)
[2018-12-27 16:59] LABS: OCCULT BLOOD STOOL NEGATIVE (NEGATIVE)
[2018-12-27 18:07] LABS: IMMEDIATE SPIN CROSSMATCH 1 2
[2018-12-27] MEDS: TAMSULOSIN (SR) 0.4 MG CAP PO (21:24)
[2018-12-27] MEDS: FUROSEMIDE 40 MG INJ IV (22:31)
[2018-12-28] MEDS: PANTOPRAZOLE 40 MG INJ IV ×2 (05:11→17:13)
[2018-12-28 06:52] LABS: WHITE BLOOD COUNT 3.7 10^3/ul (4.8-10.8)
[2018-12-28 06:52] LABS: HEMATOCRIT 32.6 % (42.0-52.0); HEMOGLOBIN 10.4 g/dl (14.0-18.0); MEAN CORPUSCULAR HGB CONC 31.9 g/dl (32.0-37.0); MEAN CORPUSCULAR VOLUME 100.3 fl (82.0-101.0); MEAN PLATELET VOLUME 9.8 fl (7.4-10.4); PLATELET COUNT 122 10^3/UL (140-415); RED BLOOD COUNT 3.25 10^6/ul (4.70-6.10); RED CELL DISTRIBUTION WIDTH 20.4 % (11.5-14.5)
[2018-12-28 06:53] LABS: ABNORMAL IP MESSAGE 1; POSITIVE DIFF @See below
[2018-12-28 06:55] LABS: ADD MAN DIFF? YES
[2018-12-28 07:14] LABS: INR 1.19; PROTIME 15.2 Sec (11.9-14.9); PT RATIO 1.2
[2018-12-28 07:21] LABS: ANION GAP 5 (5-13); BLOOD UREA NITROGEN 15 mg/dl (7-20); CALCIUM 7.8 mg/dl (8.4-10.2); CARBON DIOXIDE 31 mmol/L (21-31); CHLORIDE 99 mmol/L (97-110); CREATININE 0.73 mg/dl (0.61-1.24); GLUCOSE 99 mg/dl (70-220); SODIUM 135 mmol/L (135-144)
[2018-12-28 07:25] LABS: MAGNESIUM 2.1 mg/dl (1.7-2.5)
[2018-12-28 07:28] LABS: TROPONIN-I < 0.012 ng/ml (0.000-0.120)
[2018-12-28 08:00] LABS: ANISOCYTOSIS 1+ (0-0); BAND NEUTROPHILS % (M) 2 % (0-4); BASOPHILS % (M) 2 % (0-2); GIANT THROMBO% (M) 2 % (0-0); LYMPHOCYTES #M 0.4 10^3/ul (0.8-2.9); LYMPHOCYTES % (M) 11 % (15-51); MONOCYTES % (M) 1 % (0-11); PLATELET ESTIMATE DECREASED; POIKILOCYTOSIS 1+ (0-0); SEG NEUT #M 3.1 10^3/ul (1.6-7.5); SEGMENTED NEUTROPHILS (M) % 84 % (39-77); SMUDGE%M 4 % (0-0)
[2018-12-28] MEDS: POTASSIUM CHLORIDE (SR) 8 MEQ CAP PO (08:29)
[2018-12-28] MEDS: FINASTERIDE 5 MG TAB PO (08:29)
[2018-12-28] MEDS: DIGOXIN 0.125 MG TAB PO (08:29)
[2018-12-28] MEDS: FUROSEMIDE 40 MG INJ IV ×2 (09:47→17:13)
[2018-12-28] MEDS: D5W-0.45 NACL + KCL 10 MEQ 1,000 ML IV (15:30)
[2018-12-28] MEDS: TAMSULOSIN (SR) 0.4 MG CAP PO (20:42)
[2018-12-28] MEDS: ALBUTEROL/IPRATROPIUM (NEB) 3 ML AMP INH (21:11)
[2018-12-29] MEDS: PANTOPRAZOLE 40 MG INJ IV ×2 (05:52→18:12)
[2018-12-29 06:09] LABS: ADD MAN DIFF? NO
[2018-12-29 06:13] LABS: BASOPHILS % 0.4 % (0.0-2.0); EOSINOPHILS % 0.6 % (0.0-7.0); HEMATOCRIT 31.5 % (42.0-52.0); LYMPHOCYTES # 0.8 10^3/ul (0.8-2.9); LYMPHOCYTES % 15.8 % (15.0-51.0); MEAN CORPUSCULAR HEMOGLOBIN 32.1 pg (29.0-33.0); MEAN CORPUSCULAR HGB CONC 31.7 g/dl (32.0-37.0); MEAN PLATELET VOLUME 9.7 fl (7.4-10.4); MONOCYTE # 0.2 10^3/ul (0.3-0.9); MONOCYTES % 3.6 % (0.0-11.0); NEUTROPHIL # 3.8 10^3/ul (1.6-7.5); NEUTROPHILS % 79.2 % (39.0-77.0); PLATELET COUNT 104 10^3/UL (140-415); RED BLOOD COUNT 3.12 10^6/ul (4.70-6.10); RED CELL DISTRIBUTION WIDTH 19.8 % (11.5-14.5)
[2018-12-29 06:13] LABS: WHITE BLOOD COUNT 4.8 10^3/ul (4.8-10.8)
[2018-12-29 06:32] LABS: ALANINE AMINOTRANSFERASE 18 IU/L (13-69); ALBUMIN 2.5 g/dl (3.3-4.9); ALBUMIN/GLOBULIN RATIO 0.75; ALKALINE PHOSPHATASE 174 IU/L (42-121); ANION GAP 4 (5-13); ASPARTATE AMINO TRANSFERASE 20 IU/L (15-46); BILIRUBIN,INDIRECT 7.6 mg/dl (0-1.1); BILIRUBIN,TOTAL 8.2 mg/dl (0.2-1.3); BLOOD UREA NITROGEN 22 mg/dl (7-20); CARBON DIOXIDE 32 mmol/L (21-31); CHLORIDE 102 mmol/L (97-110); CREATININE 0.76 mg/dl (0.61-1.24); GLUCOSE 101 mg/dl (70-220); POTASSIUM 4.3 mmol/L (3.5-5.1); SODIUM 138 mmol/L (135-144); TOTAL PROTEIN 5.8 g/dl (6.1-8.1)
[2018-12-29 06:35] LABS: DIGOXIN 0.9 ng/ml (1.0-2.0)
[2018-12-29] MEDS: FUROSEMIDE 40 MG INJ IV (08:18)
[2018-12-29] MEDS: ALBUTEROL/IPRATROPIUM (NEB) 3 ML AMP INH (08:29)
[2018-12-29] MEDS: FINASTERIDE 5 MG TAB PO (10:35)
[2018-12-29] MEDS: DIGOXIN 0.125 MG TAB PO (10:38)
[2018-12-29] MEDS: POTASSIUM CHLORIDE (SR) 8 MEQ CAP PO (10:38)
[2018-12-29] MEDS: TAMSULOSIN (SR) 0.4 MG CAP PO (20:29)
[2018-12-30] MEDS: PANTOPRAZOLE 40 MG INJ IV ×2 (05:41→17:40)
[2018-12-30 06:28] LABS: WHITE BLOOD COUNT 3.3 10^3/ul (4.8-10.8)
[2018-12-30 06:28] LABS: ABNORMAL IP MESSAGE 1; HEMATOCRIT 31.5 % (42.0-52.0); HEMOGLOBIN 9.9 g/dl (14.0-18.0); MEAN CORPUSCULAR HEMOGLOBIN 32.2 pg (29.0-33.0); MEAN CORPUSCULAR HGB CONC 31.4 g/dl (32.0-37.0); MEAN CORPUSCULAR VOLUME 102.6 fl (82.0-101.0); MEAN PLATELET VOLUME 10.2 fl (7.4-10.4); PLATELET COUNT 106 10^3/UL (140-415); POSITIVE DIFF @See below; RED BLOOD COUNT 3.07 10^6/ul (4.70-6.10); RED CELL DISTRIBUTION WIDTH 18.7 % (11.5-14.5)
[2018-12-30 06:39] LABS: ADD MAN DIFF? YES
[2018-12-30 06:44] LABS: PHOSPHORUS 3.7 mg/dl (2.5-4.9)
[2018-12-30 06:57] LABS: ALANINE AMINOTRANSFERASE 17 IU/L (13-69); ALBUMIN 2.5 g/dl (3.3-4.9); ALBUMIN/GLOBULIN RATIO 0.73; ALKALINE PHOSPHATASE 156 IU/L (42-121); ANION GAP 4 (5-13); ASPARTATE AMINO TRANSFERASE 17 IU/L (15-46); BILIRUBIN,INDIRECT 7.8 mg/dl (0-1.1); BILIRUBIN,TOTAL 9.5 mg/dl (0.2-1.3); BLOOD UREA NITROGEN 29 mg/dl (7-20); CARBON DIOXIDE 33 mmol/L (21-31); CHLORIDE 99 mmol/L (97-110); CREATININE 0.74 mg/dl (0.61-1.24); GLUCOSE 100 mg/dl (70-220); POTASSIUM 3.8 mmol/L (3.5-5.1); SODIUM 136 mmol/L (135-144); TOTAL PROTEIN 5.9 g/dl (6.1-8.1)
[2018-12-30] MEDS: POTASSIUM CHLORIDE (SR) 8 MEQ CAP PO (09:04)
[2018-12-30] MEDS: DIGOXIN 0.125 MG TAB PO (09:04)
[2018-12-30] MEDS: FINASTERIDE 5 MG TAB PO (09:04)
[2018-12-30 09:19] LABS: ANISOCYTOSIS 2+ (0-0); BAND NEUTROPHILS #M 0.3 10^3/ul (0.0-0.6); BAND NEUTROPHILS % (M) 12 % (0-4); BURR CELLS 2+ (0-0); EOSINOPHILS % (M) 2 % (0-7); LYMPHOCYTES #M 0.2 10^3/ul (0.8-2.9); LYMPHOCYTES % (M) 8 % (15-51); MONOCYTES % (M) 3 % (0-11); PLATELET ESTIMATE DECREASED; POIKILOCYTOSIS 1+ (0-0); POLYCHROMASIA 1+ (0-0); REACTIVE LYMPHOCYTES #M 0.1 10^3/ul (0.0-0.0); REACTIVE LYMPHOCYTES% (M) 6 % (0-0); SEG NEUT #M 2.3 10^3/ul (1.6-7.5); SEGMENTED NEUTROPHILS (M) % 69 % (39-77); SMUDGE%M 14 % (0-0); TARGET CELLS 1+ (0-0)
[2018-12-30] MEDS: ALBUTEROL/IPRATROPIUM (NEB) 3 ML AMP INH ×3 (11:35→19:29)
[2018-12-30] MEDS: FUROSEMIDE 40 MG INJ IV (17:41)
[2018-12-30] MEDS: TAMSULOSIN (SR) 0.4 MG CAP PO (21:09)
[2018-12-30] MEDS: LACTOBACILLUS RHAMNOSUS CAP PO (22:27)
[2018-12-31] MEDS: ALBUTEROL/IPRATROPIUM (NEB) 3 ML AMP INH (00:35)
[2018-12-31] MEDS ORDERED: IPRATROPIUM (NEB) 0.5 MG/2.5 ML AMP HHN (01:30)
[2018-12-31] MEDS ORDERED: LEVALBUTEROL (NEB) 0.63 MG/3 ML AMP HHN (01:30)
[2018-12-31] MEDS: LEVALBUTEROL (NEB) 0.63 MG/3 ML AMP HHN ×5 (04:49→21:44)
[2018-12-31] MEDS: IPRATROPIUM (NEB) 0.5 MG/2.5 ML AMP HHN ×5 (04:49→21:44)
[2018-12-31] MEDS: PANTOPRAZOLE 40 MG INJ IV ×2 (05:31→17:22)
[2018-12-31] MEDS: METHYLPREDNISOLONE 125 MG INJ IV ×3 (06:48→22:36)
[2018-12-31 07:36] LABS: ANION GAP 8 (5-13); BLOOD UREA NITROGEN 33 mg/dl (7-20); CALCIUM 8.1 mg/dl (8.4-10.2); CARBON DIOXIDE 32 mmol/L (21-31); CHLORIDE 96 mmol/L (97-110); CREATININE 0.78 mg/dl (0.61-1.24); GLUCOSE 98 mg/dl (70-220); POTASSIUM 3.4 mmol/L (3.5-5.1); SODIUM 136 mmol/L (135-144)
[2018-12-31] MEDS: FINASTERIDE 5 MG TAB PO (08:59)
[2018-12-31] MEDS: LACTOBACILLUS RHAMNOSUS CAP PO ×2 (08:59→20:11)
[2018-12-31] MEDS: POTASSIUM CHLORIDE (SR) 8 MEQ CAP PO (08:59)
[2018-12-31] MEDS: DIGOXIN 0.125 MG TAB PO (12:18)
[2018-12-31] MEDS ORDERED: VANCOMYCIN IV PER PHARMACY XX (12:30)
[2018-12-31] MEDS: VANCOMYCIN HCL 1.25 GM in SOD CHLORIDE 0.9% 250 ML IVPB (14:47)
[2018-12-31] MEDS: CEFTRIAXONE 2 GM/50 ML (PMX) 50 ML IVPB (14:47)
[2018-12-31] MEDS: TAMSULOSIN (SR) 0.4 MG CAP PO (20:11)
[2019-01-01] MEDS: LEVALBUTEROL (NEB) 0.63 MG/3 ML AMP HHN ×6 (01:46→20:23)
[2019-01-01] MEDS: IPRATROPIUM (NEB) 0.5 MG/2.5 ML AMP HHN ×6 (01:46→20:23)
[2019-01-01] MEDS: METHYLPREDNISOLONE 125 MG INJ IV ×2 (05:42→13:25)
[2019-01-01] MEDS: PANTOPRAZOLE 40 MG INJ IV ×2 (05:42→17:56)
[2019-01-01 06:38] LABS: ABNORMAL IP MESSAGE 1; HEMOGLOBIN 8.3 g/dl (14.0-18.0); MEAN CORPUSCULAR HEMOGLOBIN 32.9 pg (29.0-33.0); MEAN CORPUSCULAR HGB CONC 31.9 g/dl (32.0-37.0); MEAN CORPUSCULAR VOLUME 103.2 fl (82.0-101.0); MEAN PLATELET VOLUME 10.4 fl (7.4-10.4); PLATELET COUNT 86 10^3/UL (140-415); POSITIVE DIFF @See below; RED BLOOD COUNT 2.52 10^6/ul (4.70-6.10); RED CELL DISTRIBUTION WIDTH 17.2 % (11.5-14.5)
[2019-01-01 06:38] LABS: WHITE BLOOD COUNT 1.5 10^3/ul (4.8-10.8)
[2019-01-01 06:47] LABS: LACTIC ACID 1.2 mmol/L (0.5-2.0)
[2019-01-01 06:55] LABS: ADD MAN DIFF? YES
[2019-01-01 07:00] LABS: ALANINE AMINOTRANSFERASE 16 IU/L (13-69); ALBUMIN 2.4 g/dl (3.3-4.9); ALBUMIN/GLOBULIN RATIO 0.72; ALKALINE PHOSPHATASE 107 IU/L (42-121); ANION GAP 7 (5-13); ASPARTATE AMINO TRANSFERASE 11 IU/L (15-46); BILIRUBIN,TOTAL 3.2 mg/dl (0.2-1.3); BLOOD UREA NITROGEN 37 mg/dl (7-20); CALCIUM 8.3 mg/dl (8.4-10.2); CARBON DIOXIDE 31 mmol/L (21-31); CHLORIDE 98 mmol/L (97-110); CREATININE 0.77 mg/dl (0.61-1.24); GLUCOSE 132 mg/dl (70-220); POTASSIUM 3.8 mmol/L (3.5-5.1); SODIUM 136 mmol/L (135-144); TOTAL PROTEIN 5.7 g/dl (6.1-8.1)
[2019-01-01 07:02] LABS: TROPONIN-I < 0.012 ng/ml (0.000-0.120)
[2019-01-01 07:11] LABS: PHOSPHORUS 3.7 mg/dl (2.5-4.9)
[2019-01-01 07:11] LABS: MAGNESIUM 2.2 mg/dl (1.7-2.5)
[2019-01-01] MEDS: POTASSIUM CHLORIDE (SR) 8 MEQ CAP PO (08:57)
[2019-01-01] MEDS: LACTOBACILLUS RHAMNOSUS CAP PO ×2 (08:57→20:48)
[2019-01-01] MEDS: FINASTERIDE 5 MG TAB PO (08:57)
[2019-01-01] MEDS: ACETAMINOPHEN 325 MG TAB PO (08:58)
[2019-01-01 09:48] LABS: ANISOCYTOSIS 2+ (0-0); BAND NEUTROPHILS #M 0.2 10^3/ul (0.0-0.6); BAND NEUTROPHILS % (M) 16 % (0-4); GIANT THROMBO% (M) 6 % (0-0); LYMPHOCYTES % (M) 5 % (15-51); MONOCYTES % (M) 2 % (0-11); PLATELET ESTIMATE DECREASED; POIKILOCYTOSIS 1+ (0-0); SEG NEUT #M 1.2 10^3/ul (1.6-7.5); SEGMENTED NEUTROPHILS (M) % 77 % (39-77); SMUDGE%M 70 % (0-0)
[2019-01-01] MEDS: DIGOXIN 0.125 MG TAB PO (13:25)
[2019-01-01] MEDS: VANCOMYCIN HCL 1.25 GM in SOD CHLORIDE 0.9% 250 ML IVPB (13:26)
[2019-01-01] MEDS: CEFTRIAXONE 2 GM/50 ML (PMX) 50 ML IVPB (14:14)
[2019-01-01] MEDS: FUROSEMIDE 20 MG TAB PO (17:56)
[2019-01-01] MEDS: TAMSULOSIN (SR) 0.4 MG CAP PO (20:48)
[2019-01-02] MEDS: IPRATROPIUM (NEB) 0.5 MG/2.5 ML AMP HHN ×6 (00:09→20:22)
[2019-01-02] MEDS: LEVALBUTEROL (NEB) 0.63 MG/3 ML AMP HHN ×6 (00:09→20:22)
[2019-01-02] MEDS: PANTOPRAZOLE 40 MG INJ IV ×2 (06:02→17:28)
[2019-01-02 07:01] LABS: ADD MAN DIFF? NO
[2019-01-02 07:07] LABS: WHITE BLOOD COUNT 3.1 10^3/ul (4.8-10.8)
[2019-01-02 07:07] LABS: ABNORMAL IP MESSAGE 1; HEMATOCRIT 25.9 % (42.0-52.0); HEMOGLOBIN 8.1 g/dl (14.0-18.0); LYMPHOCYTES # 0.2 10^3/ul (0.8-2.9); LYMPHOCYTES % 7.7 % (15.0-51.0); MEAN CORPUSCULAR HEMOGLOBIN 32.5 pg (29.0-33.0); MEAN CORPUSCULAR HGB CONC 31.3 g/dl (32.0-37.0); MEAN PLATELET VOLUME 10.8 fl (7.4-10.4); MONOCYTE # 0.2 10^3/ul (0.3-0.9); MONOCYTES % 7.1 % (0.0-11.0); NEUTROPHIL # 2.6 10^3/ul (1.6-7.5); NEUTROPHILS % 84.9 % (39.0-77.0); PLATELET COUNT 95 10^3/UL (140-415); POSITIVE DIFF @See below; RED BLOOD COUNT 2.49 10^6/ul (4.70-6.10); RED CELL DISTRIBUTION WIDTH 16.6 % (11.5-14.5)
[2019-01-02 07:41] LABS: ANION GAP 3 (5-13); BLOOD UREA NITROGEN 48 mg/dl (7-20); CALCIUM 8.6 mg/dl (8.4-10.2); CARBON DIOXIDE 31 mmol/L (21-31); CHLORIDE 102 mmol/L (97-110); CREATININE 0.76 mg/dl (0.61-1.24); GLUCOSE 118 mg/dl (70-220); SODIUM 136 mmol/L (135-144)
[2019-01-02] MEDS: predniSONE 20 MG TAB PO (08:53)
[2019-01-02] MEDS: LACTOBACILLUS RHAMNOSUS CAP PO ×2 (08:53→20:06)
[2019-01-02] MEDS: FINASTERIDE 5 MG TAB PO (08:53)
[2019-01-02] MEDS: FUROSEMIDE 20 MG TAB PO (08:54)
[2019-01-02] MEDS: POTASSIUM CHLORIDE (SR) 8 MEQ CAP PO (08:54)
[2019-01-02 09:18] LABS: PHOSPHORUS 3.7 mg/dl (2.5-4.9)
[2019-01-02 09:18] LABS: MAGNESIUM 2.4 mg/dl (1.7-2.5)
[2019-01-02 10:41] LABS: FOLATE 3.6 ng/ml (2.8-20.0)
[2019-01-02] MEDS: DIGOXIN 0.125 MG TAB PO (13:05)
[2019-01-02 14:37] LABS: HEPATITIS B SURFACE ANTIGEN NEGATIVE (NEGATIVE)
[2019-01-02 14:55] LABS: HEPATITIS C VIRAL ANTIBODY NEGATIVE (NEGATIVE)
[2019-01-02 14:56] LABS: HEPATITIS B SURFACE ANTIBODY NEGATIVE (NEGATIVE)
[2019-01-02] MEDS: TAMSULOSIN (SR) 0.4 MG CAP PO (20:06)
[2019-01-02] MEDS: MEROPENEM 1 GM/50ML(PMX) 50 ML IVPB (20:07)
[2019-01-03] MEDS: IPRATROPIUM (NEB) 0.5 MG/2.5 ML AMP HHN ×6 (01:02→20:00)
[2019-01-03] MEDS: LEVALBUTEROL (NEB) 0.63 MG/3 ML AMP HHN ×6 (01:02→20:00)
[2019-01-03] MEDS: PANTOPRAZOLE 40 MG INJ IV ×2 (05:45→18:03)
[2019-01-03 07:52] LABS: ADD MAN DIFF? NO
[2019-01-03 07:55] LABS: ABNORMAL IP MESSAGE 1; EOSINOPHILS % 0.3 % (0.0-7.0); HEMATOCRIT 27.2 % (42.0-52.0); HEMOGLOBIN 8.5 g/dl (14.0-18.0); LYMPHOCYTES # 0.4 10^3/ul (0.8-2.9); LYMPHOCYTES % 13.5 % (15.0-51.0); MEAN CORPUSCULAR HEMOGLOBIN 32.4 pg (29.0-33.0); MEAN CORPUSCULAR HGB CONC 31.3 g/dl (32.0-37.0); MEAN CORPUSCULAR VOLUME 103.8 fl (82.0-101.0); MEAN PLATELET VOLUME 10.3 fl (7.4-10.4); MONOCYTE # 0.3 10^3/ul (0.3-0.9); MONOCYTES % 8.6 % (0.0-11.0); NEUTROPHIL # 2.5 10^3/ul (1.6-7.5); NEUTROPHILS % 77.3 % (39.0-77.0); PLATELET COUNT 93 10^3/UL (140-415); POSITIVE DIFF @See below; RED BLOOD COUNT 2.62 10^6/ul (4.70-6.10); RED CELL DISTRIBUTION WIDTH 16.6 % (11.5-14.5)
[2019-01-03 07:55] LABS: WHITE BLOOD COUNT 3.3 10^3/ul (4.8-10.8)
[2019-01-03 08:14] LABS: INR 1.18; PROTIME 15.1 Sec (11.9-14.9); PT RATIO 1.2
[2019-01-03 08:16] LABS: ANION GAP 4 (5-13); BLOOD UREA NITROGEN 41 mg/dl (7-20); CALCIUM 8.6 mg/dl (8.4-10.2); CARBON DIOXIDE 33 mmol/L (21-31); CHLORIDE 101 mmol/L (97-110); CREATININE 0.67 mg/dl (0.61-1.24); GLUCOSE 95 mg/dl (70-220); POTASSIUM 3.9 mmol/L (3.5-5.1); SODIUM 138 mmol/L (135-144)
[2019-01-03 08:21] LABS: ALANINE AMINOTRANSFERASE 19 IU/L (13-69); ALBUMIN 2.3 g/dl (3.3-4.9); ALKALINE PHOSPHATASE 127 IU/L (42-121); ASPARTATE AMINO TRANSFERASE 17 IU/L (15-46); BILIRUBIN,INDIRECT 1.4 mg/dl (0-1.1); BILIRUBIN,TOTAL 1.4 mg/dl (0.2-1.3); MAGNESIUM 2.4 mg/dl (1.7-2.5); TOTAL PROTEIN 5.2 g/dl (6.1-8.1)
[2019-01-03 08:21] LABS: PHOSPHORUS 3.3 mg/dl (2.5-4.9)
[2019-01-03] MEDS: MEROPENEM 1 GM/50ML(PMX) 50 ML IVPB ×2 (09:17→21:23)
[2019-01-03] MEDS: LACTOBACILLUS RHAMNOSUS CAP PO ×2 (09:18→21:23)
[2019-01-03] MEDS: FUROSEMIDE 20 MG TAB PO (09:18)
[2019-01-03] MEDS: FINASTERIDE 5 MG TAB PO (09:19)
[2019-01-03] MEDS: predniSONE 20 MG TAB PO (09:19)
[2019-01-03] MEDS: POTASSIUM CHLORIDE (SR) 8 MEQ CAP PO (09:19)
[2019-01-03] MEDS: GUAIFENESIN/DM 5ML CUP PO (09:22)
[2019-01-03] MEDS: FUROSEMIDE 40 MG INJ IV (13:30)
[2019-01-03] MEDS: LIDOCAINE 100 MG SYRINGE (15:42)
[2019-01-03] MEDS: PROPOFOL 20 ML (15:42)
[2019-01-03] MEDS: FENTAnyl 50 MCG/ML VIAL (15:43)
[2019-01-03] MEDS: DIGOXIN 0.125 MG TAB PO (18:03)
[2019-01-03] MEDS: TAMSULOSIN (SR) 0.4 MG CAP PO (21:23)
[2019-01-04] MEDS: LEVALBUTEROL (NEB) 0.63 MG/3 ML AMP HHN ×6 (00:44→20:51)
[2019-01-04] MEDS: IPRATROPIUM (NEB) 0.5 MG/2.5 ML AMP HHN ×6 (00:44→20:51)
[2019-01-04] MEDS: PANTOPRAZOLE 40 MG INJ IV ×2 (05:47→17:11)
[2019-01-04 06:58] LABS: ADD MAN DIFF? NO
[2019-01-04 07:03] LABS: WHITE BLOOD COUNT 3.8 10^3/ul (4.8-10.8)
[2019-01-04 07:03] LABS: ABNORMAL IP MESSAGE 1; EOSINOPHILS # 0.1 10^3/ul (0.0-0.5); EOSINOPHILS % 1.3 % (0.0-7.0); HEMATOCRIT 28.3 % (42.0-52.0); HEMOGLOBIN 8.7 g/dl (14.0-18.0); LYMPHOCYTES # 0.6 10^3/ul (0.8-2.9); LYMPHOCYTES % 16.1 % (15.0-51.0); MEAN CORPUSCULAR HEMOGLOBIN 32.7 pg (29.0-33.0); MEAN CORPUSCULAR HGB CONC 30.7 g/dl (32.0-37.0); MEAN CORPUSCULAR VOLUME 106.4 fl (82.0-101.0); MEAN PLATELET VOLUME 10.4 fl (7.4-10.4); MONOCYTE # 0.3 10^3/ul (0.3-0.9); MONOCYTES % 8.7 % (0.0-11.0); NEUTROPHIL # 2.8 10^3/ul (1.6-7.5); NEUTROPHILS % 73.1 % (39.0-77.0); PLATELET COUNT 88 10^3/UL (140-415); POSITIVE DIFF @See below; RED BLOOD COUNT 2.66 10^6/ul (4.70-6.10); RED CELL DISTRIBUTION WIDTH 16.7 % (11.5-14.5)
[2019-01-04 07:27] LABS: MAGNESIUM 2.4 mg/dl (1.7-2.5)
[2019-01-04 07:27] LABS: PHOSPHORUS 3.2 mg/dl (2.5-4.9)
[2019-01-04 07:38] LABS: ANION GAP 1 (5-13); BLOOD UREA NITROGEN 37 mg/dl (7-20); CALCIUM 8.5 mg/dl (8.4-10.2); CARBON DIOXIDE 34 mmol/L (21-31); CHLORIDE 103 mmol/L (97-110); CREATININE 0.65 mg/dl (0.61-1.24); GLUCOSE 88 mg/dl (70-220); POTASSIUM 3.9 mmol/L (3.5-5.1); SODIUM 138 mmol/L (135-144)
[2019-01-04] MEDS: MEROPENEM 1 GM/50ML(PMX) 50 ML IVPB ×2 (08:16→20:16)
[2019-01-04] MEDS: POTASSIUM CHLORIDE (SR) 8 MEQ CAP PO (08:17)
[2019-01-04] MEDS: FINASTERIDE 5 MG TAB PO (08:17)
[2019-01-04] MEDS: FUROSEMIDE 20 MG TAB PO (08:17)
[2019-01-04] MEDS: predniSONE 20 MG TAB PO (08:17)
[2019-01-04] MEDS: LACTOBACILLUS RHAMNOSUS CAP PO ×2 (08:18→20:16)
[2019-01-04 11:46] LABS: PROCALCITONIN 0.51 ng/mL (<0.10)
[2019-01-04] MEDS: FUROSEMIDE 20 MG INJ IV (14:44)
[2019-01-04] MEDS: DIGOXIN 0.125 MG TAB PO (14:45)
[2019-01-04] MEDS: TAMSULOSIN (SR) 0.4 MG CAP PO (20:16)
[2019-01-05] MEDS: LEVALBUTEROL (NEB) 0.63 MG/3 ML AMP HHN ×8 (00:43→21:00)
[2019-01-05] MEDS: IPRATROPIUM (NEB) 0.5 MG/2.5 ML AMP HHN ×8 (00:43→21:00)
[2019-01-05 06:59] LABS: ADD MAN DIFF? NO
[2019-01-05] MEDS: PANTOPRAZOLE 40 MG INJ IV ×2 (07:00→17:25)
[2019-01-05 07:06] LABS: WHITE BLOOD COUNT 3.8 10^3/ul (4.8-10.8)
[2019-01-05 07:06] LABS: ABNORMAL IP MESSAGE 1; EOSINOPHILS # 0.1 10^3/ul (0.0-0.5); EOSINOPHILS % 2.1 % (0.0-7.0); HEMATOCRIT 28.2 % (42.0-52.0); HEMOGLOBIN 8.5 g/dl (14.0-18.0); LYMPHOCYTES # 0.6 10^3/ul (0.8-2.9); LYMPHOCYTES % 15.6 % (15.0-51.0); MEAN CORPUSCULAR HEMOGLOBIN 32.2 pg (29.0-33.0); MEAN CORPUSCULAR HGB CONC 30.1 g/dl (32.0-37.0); MEAN CORPUSCULAR VOLUME 106.8 fl (82.0-101.0); MEAN PLATELET VOLUME 11.1 fl (7.4-10.4); MONOCYTE # 0.2 10^3/ul (0.3-0.9); MONOCYTES % 6.1 % (0.0-11.0); NEUTROPHIL # 2.8 10^3/ul (1.6-7.5); NEUTROPHILS % 75.1 % (39.0-77.0); PLATELET COUNT 94 10^3/UL (140-415); POSITIVE DIFF @See below; RED BLOOD COUNT 2.64 10^6/ul (4.70-6.10); RED CELL DISTRIBUTION WIDTH 16.3 % (11.5-14.5)
[2019-01-05 07:34] LABS: PHOSPHORUS 2.8 mg/dl (2.5-4.9)
[2019-01-05 07:34] LABS: MAGNESIUM 2.4 mg/dl (1.7-2.5)
[2019-01-05 07:36] LABS: DIGOXIN 0.7 ng/ml (1.0-2.0)
[2019-01-05 07:36] LABS: ANION GAP 3 (5-13); BLOOD UREA NITROGEN 35 mg/dl (7-20); CALCIUM 8.4 mg/dl (8.4-10.2); CARBON DIOXIDE 35 mmol/L (21-31); CHLORIDE 102 mmol/L (97-110); CREATININE 0.73 mg/dl (0.61-1.24); GLUCOSE 89 mg/dl (70-220); POTASSIUM 4.1 mmol/L (3.5-5.1); SODIUM 140 mmol/L (135-144)
[2019-01-05] MEDS: FINASTERIDE 5 MG TAB PO (08:48)
[2019-01-05] MEDS: predniSONE 10 MG TAB PO (08:48)
[2019-01-05] MEDS: LACTOBACILLUS RHAMNOSUS CAP PO ×2 (08:49→21:02)
[2019-01-05] MEDS: BUMETANIDE 1 MG TAB PO (08:49)
[2019-01-05] MEDS: POTASSIUM CHLORIDE (SR) 8 MEQ CAP PO (08:49)
[2019-01-05] MEDS: MEROPENEM 1 GM/50ML(PMX) 50 ML IVPB ×2 (08:50→21:02)
[2019-01-05] MEDS: DIGOXIN 0.125 MG TAB PO (13:52)
[2019-01-05] MEDS: TAMSULOSIN (SR) 0.4 MG CAP PO (21:02)
[2019-01-06] MEDS: IPRATROPIUM (NEB) 0.5 MG/2.5 ML AMP HHN ×3 (04:52→12:13)
[2019-01-06] MEDS: LEVALBUTEROL (NEB) 0.63 MG/3 ML AMP HHN ×3 (04:53→12:13)
[2019-01-06] MEDS: PANTOPRAZOLE 40 MG INJ IV (06:15)
[2019-01-06 07:04] LABS: ADD MAN DIFF? NO
[2019-01-06 07:07] LABS: ABNORMAL IP MESSAGE 1; EOSINOPHILS # 0.1 10^3/ul (0.0-0.5); EOSINOPHILS % 1.7 % (0.0-7.0); HEMATOCRIT 27.9 % (42.0-52.0); HEMOGLOBIN 8.7 g/dl (14.0-18.0); LYMPHOCYTES # 0.4 10^3/ul (0.8-2.9); MEAN CORPUSCULAR HEMOGLOBIN 32.5 pg (29.0-33.0); MEAN CORPUSCULAR HGB CONC 31.2 g/dl (32.0-37.0); MEAN CORPUSCULAR VOLUME 104.1 fl (82.0-101.0); MEAN PLATELET VOLUME 10.6 fl (7.4-10.4); MONOCYTE # 0.3 10^3/ul (0.3-0.9); MONOCYTES % 6.4 % (0.0-11.0); NEUTROPHIL # 3.8 10^3/ul (1.6-7.5); NEUTROPHILS % 81.6 % (39.0-77.0); PLATELET COUNT 103 10^3/UL (140-415); POSITIVE DIFF @See below; RED BLOOD COUNT 2.68 10^6/ul (4.70-6.10); RED CELL DISTRIBUTION WIDTH 15.9 % (11.5-14.5)
[2019-01-06 07:07] LABS: WHITE BLOOD COUNT 4.7 10^3/ul (4.8-10.8)
[2019-01-06 07:23] LABS: AMMONIA < 9 umol/l (9-30)
[2019-01-06 07:24] LABS: ALANINE AMINOTRANSFERASE 52 IU/L (13-69); ALBUMIN 2.2 g/dl (3.3-4.9); ALBUMIN/GLOBULIN RATIO 0.73; ALKALINE PHOSPHATASE 132 IU/L (42-121); ANION GAP 1 (5-13); ASPARTATE AMINO TRANSFERASE 37 IU/L (15-46); BILIRUBIN,INDIRECT 2.1 mg/dl (0-1.1); BILIRUBIN,TOTAL 2.1 mg/dl (0.2-1.3); BLOOD UREA NITROGEN 31 mg/dl (7-20); CALCIUM 8.5 mg/dl (8.4-10.2); CARBON DIOXIDE 37 mmol/L (21-31); CHLORIDE 101 mmol/L (97-110); CREATININE 0.62 mg/dl (0.61-1.24); GLUCOSE 90 mg/dl (70-220); POTASSIUM 4.9 mmol/L (3.5-5.1); SODIUM 139 mmol/L (135-144); TOTAL PROTEIN 5.2 g/dl (6.1-8.1)
[2019-01-06 07:27] LABS: MAGNESIUM 2.3 mg/dl (1.7-2.5)
[2019-01-06 07:27] LABS: PHOSPHORUS 2.5 mg/dl (2.5-4.9)
[2019-01-06] MEDS: MEROPENEM 1 GM/50ML(PMX) 50 ML IVPB (08:54)
[2019-01-06] MEDS: BUMETANIDE 1 MG TAB PO (08:54)
[2019-01-06] MEDS: predniSONE 10 MG TAB PO (08:54)
[2019-01-06] MEDS: POTASSIUM CHLORIDE (SR) 8 MEQ CAP PO (08:55)
[2019-01-06] MEDS: LACTOBACILLUS RHAMNOSUS CAP PO (08:55)
[2019-01-06] MEDS: FINASTERIDE 5 MG TAB PO (08:55)
[2019-01-06 08:56] LABS: PROCALCITONIN 0.35 ng/mL (<0.10)
[2019-01-06] MEDS: DIGOXIN 0.125 MG TAB PO (12:32)
== END 2019-01-06 13:55 | disposition home or self-care (01) | DRG 808 ==
LOC: E/R 14:47 → TEL 19:53
PROC: 30233N1 Transfusion of Nonautologous Red Blood Cells into Peripheral Vein, Percutaneous Approach (ICD-10-PCS; principal; 2019-01-03 15:10)
PROC: 0DB68ZX Excision of Stomach, Via Natural or Artificial Opening Endoscopic, Diagnostic (ICD-10-PCS; 2019-01-03 15:10)
DX: D61.818 Other pancytopenia (principal); L89.153 Pressure ulcer of sacral region, stage 3; I50.23 Acute on chronic systolic (congestive) heart failure; J18.9 Pneumonia, unspecified organism; K92.1 Melena; I47.2 Ventricular tachycardia; D62 Acute posthemorrhagic anemia; D50.9 Iron deficiency anemia, unspecified; I11.0 Hypertensive heart disease with heart failure; I48.91 Unspecified atrial fibrillation; N40.0 Benign prostatic hyperplasia without lower urinary tract symptoms; I25.10 Atherosclerotic heart disease of native coronary artery without angina pectoris; I25.5 Ischemic cardiomyopathy; I27.20 Pulmonary hypertension, unspecified; I35.0 Nonrheumatic aortic (valve) stenosis; E80.6 Other disorders of bilirubin metabolism; E78.5 Hyperlipidemia, unspecified; D72.819 Decreased white blood cell count, unspecified; J45.909 Unspecified asthma, uncomplicated; K74.60 Unspecified cirrhosis of liver; K20.9 Esophagitis, unspecified; K29.70 Gastritis, unspecified, without bleeding
CPT/HCPCS: 36415; 36430; 71045; 71250; 76705; 80048; 80053; 80061; 80076; 80162; 82140; 82270; 82607; 82728; 82746; 83036; 83540; 83605; 83735; 83880; 84100; 84145; 84443; 84484; 85014; 85018; 85025; 85610; 85730; 86706; 86803; 86850; 86860; 86870; 86880; 86900; 86901; 86902; 86906; 86920; 86970; 86971; 86978; 87081; 87340; 87400; 88305; 88312; 92526; 92610; 93005; 94640; 94664; 97110; 97116; 97162; 97530; 99285-25

== ENCOUNTER 2019-01-19 18:10 | Inpatient (IN) | payer OTHER ==
[2019-01-19 22:03] LABS: ADD MAN DIFF? NO
[2019-01-19 22:04] LABS: WHITE BLOOD COUNT 3.3 10^3/ul (4.8-10.8)
[2019-01-19 22:05] LABS: BASOPHILS % 0.3 % (0.0-2.0); EOSINOPHILS # 0.1 10^3/ul (0.0-0.5); EOSINOPHILS % 4.3 % (0.0-7.0); HEMATOCRIT 24.8 % (42.0-52.0); HEMOGLOBIN 7.8 g/dl (14.0-18.0); LYMPHOCYTES # 0.6 10^3/ul (0.8-2.9); LYMPHOCYTES % 19.3 % (15.0-51.0); MEAN CORPUSCULAR HEMOGLOBIN 33.6 pg (29.0-33.0); MEAN CORPUSCULAR HGB CONC 31.5 g/dl (32.0-37.0); MEAN CORPUSCULAR VOLUME 106.9 fl (82.0-101.0); MEAN PLATELET VOLUME 10.1 fl (7.4-10.4); MONOCYTE # 0.1 10^3/ul (0.3-0.9); MONOCYTES % 3.1 % (0.0-11.0); NEUTROPHIL # 2.4 10^3/ul (1.6-7.5); NEUTROPHILS % 72.4 % (39.0-77.0); PLATELET COUNT 113 10^3/UL (140-415); RED BLOOD COUNT 2.32 10^6/ul (4.70-6.10); RED CELL DISTRIBUTION WIDTH 17.1 % (11.5-14.5)
[2019-01-19 22:23] LABS: ALANINE AMINOTRANSFERASE 30 IU/L (13-69); ALBUMIN 2.7 g/dl (3.3-4.9); ALBUMIN/GLOBULIN RATIO 0.87; ALKALINE PHOSPHATASE 272 IU/L (42-121); ANION GAP 4 (5-13); ASPARTATE AMINO TRANSFERASE 31 IU/L (15-46); BILIRUBIN,INDIRECT 1.2 mg/dl (0-1.1); BILIRUBIN,TOTAL 1.2 mg/dl (0.2-1.3); BLOOD UREA NITROGEN 20 mg/dl (7-20); CALCIUM 7.9 mg/dl (8.4-10.2); CARBON DIOXIDE 33 mmol/L (21-31); CHLORIDE 99 mmol/L (97-110); CREATININE 0.79 mg/dl (0.61-1.24); GLUCOSE 113 mg/dl (70-220); POTASSIUM 4.1 mmol/L (3.5-5.1); SODIUM 136 mmol/L (135-144); TOTAL PROTEIN 5.8 g/dl (6.1-8.1)
[2019-01-19 22:24] LABS: INR 0.99; PROTIME 13.2 Sec (11.9-14.9)
[2019-01-19 22:25] LABS: PARTIAL THROMBOPLASTIN TIME 39.8 Sec (23.0-35.0)
[2019-01-19] MEDS: BUMETANIDE 1 MG INJ IV (22:25)
[2019-01-19 22:34] LABS: B-TYPE NATRIURETIC PEPTIDE 3870 PG/ML (0-450); TROPONIN-I < 0.012 ng/ml (0.000-0.120)
[2019-01-19 22:36] LABS: DIGOXIN 0.7 ng/ml (1.0-2.0)
[2019-01-20] MEDS ORDERED: DOCUSATE SODIUM 100 MG CAP PO
[2019-01-20] MEDS ORDERED: BISACODYL (EC) 5 MG TAB PO
[2019-01-20] MEDS ORDERED: NACL 0.9% 3 ML SYG IV
[2019-01-20] MEDS ORDERED: ONDANSETRON 4 MG INJ IV
[2019-01-20] MEDS ORDERED: ACETAMINOPHEN 325 MG TAB PO
[2019-01-20] MEDS ORDERED: NITROGLYCERIN (SL) 0.4 MG TAB SL
[2019-01-20 06:22] LABS: ADD MAN DIFF? NO
[2019-01-20 06:25] LABS: WHITE BLOOD COUNT 3.2 10^3/ul (4.8-10.8)
[2019-01-20 06:25] LABS: ABNORMAL IP MESSAGE 1; BASOPHILS % 0.6 % (0.0-2.0); EOSINOPHILS # 0.2 10^3/ul (0.0-0.5); EOSINOPHILS % 4.7 % (0.0-7.0); HEMATOCRIT 23.6 % (42.0-52.0); HEMOGLOBIN 7.3 g/dl (14.0-18.0); LYMPHOCYTES # 0.7 10^3/ul (0.8-2.9); LYMPHOCYTES % 22.5 % (15.0-51.0); MEAN CORPUSCULAR HGB CONC 30.9 g/dl (32.0-37.0); MEAN CORPUSCULAR VOLUME 106.8 fl (82.0-101.0); MONOCYTE # 0.2 10^3/ul (0.3-0.9); MONOCYTES % 6.6 % (0.0-11.0); NEUTROPHIL # 2.1 10^3/ul (1.6-7.5); NEUTROPHILS % 65.3 % (39.0-77.0); NUCLEATED RED BLOOD CELLS # 0.1 10^3/ul (0.0-0.0); NUCLEATED RED BLOOD CELLS% 2.2 /100WBC (0.0-0.0); PLATELET COUNT 99 10^3/UL (140-415); POSITIVE DIFF @See below; RED BLOOD COUNT 2.21 10^6/ul (4.70-6.10); RED CELL DISTRIBUTION WIDTH 17.1 % (11.5-14.5)
[2019-01-20 06:54] LABS: ALANINE AMINOTRANSFERASE 25 IU/L (13-69); ALBUMIN 2.3 g/dl (3.3-4.9); ALBUMIN/GLOBULIN RATIO 0.74; ALKALINE PHOSPHATASE 238 IU/L (42-121); ANION GAP 4 (5-13); ASPARTATE AMINO TRANSFERASE 30 IU/L (15-46); BILIRUBIN,INDIRECT 1.2 mg/dl (0-1.1); BILIRUBIN,TOTAL 1.2 mg/dl (0.2-1.3); BLOOD UREA NITROGEN 20 mg/dl (7-20); CALCIUM 7.8 mg/dl (8.4-10.2); CARBON DIOXIDE 36 mmol/L (21-31); CHLORIDE 98 mmol/L (97-110); CREATININE 0.68 mg/dl (0.61-1.24); GLUCOSE 84 mg/dl (70-220); POTASSIUM 4.4 mmol/L (3.5-5.1); SODIUM 138 mmol/L (135-144); TOTAL PROTEIN 5.4 g/dl (6.1-8.1)
[2019-01-20] MEDS: POTASSIUM CHLORIDE (SR) 8 MEQ CAP PO (10:36)
[2019-01-20] MEDS: FISH OIL 1,000 MG CAP PO ×3 (10:36→20:54)
[2019-01-20] MEDS: APIXABAN 5 MG TABLET PO ×2 (10:36→20:55)
[2019-01-20] MEDS: CITALOPRAM 20 MG TAB PO (10:37)
[2019-01-20] MEDS: PANTOPRAZOLE (EC) 40 MG TAB PO ×2 (10:37→17:46)
[2019-01-20] MEDS: BUMETANIDE 1 MG INJ IV (10:38)
[2019-01-20] MEDS: FERROUS SULFATE (EC) 325 MG TAB PO ×2 (10:38→20:54)
[2019-01-20] MEDS: LEVALBUTEROL (NEB) 0.63 MG/3 ML AMP HHN ×2 (14:00→19:54)
[2019-01-20 15:00] LABS: ADD UMIC YES; UR ASCORBIC ACID NEGATIVE (NEGATIVE); UR BILIRUBIN (Dip) NEGATIVE (NEGATIVE); UR BLOOD (Dip) 1+ mg/dL (NEGATIVE); UR CLARITY CLEAR (CLEAR); UR COLOR STRAW (YELLOW); UR GLUCOSE (Dip) NEGATIVE (NEGATIVE); UR KETONES (Dip) NEGATIVE (NEGATIVE); UR LEUKOCYTE ESTERASE (Dip) NEGATIVE Leu/ul (NEGATIVE); UR NITRITE (Dip) NEGATIVE (NEGATIVE); UR RBC 1 /HPF (0-5); UR SPECIFIC GRAVITY (Dip) 1.006 (1.003-1.030); UR TOTAL PROTEIN (Dip) NEGATIVE (NEGATIVE); UR UROBILINOGEN (Dip) NEGATIVE (NEGATIVE); UR WBC 0 /HPF (0-5)
[2019-01-20] MEDS: DIGOXIN 0.125 MG TAB PO (15:12)
[2019-01-20] MEDS ORDERED: BUMETANIDE 1 MG INJ IV (20:00)
[2019-01-20] MEDS: BUMETANIDE 2 MG in DEXTROSE 5% 17 ML IV (20:54)
[2019-01-20] MEDS: TAMSULOSIN (SR) 0.4 MG CAP PO (20:55)
[2019-01-21] MEDS: LEVALBUTEROL (NEB) 0.63 MG/3 ML AMP HHN ×4 (02:20→20:57)
[2019-01-21] MEDS: PANTOPRAZOLE (EC) 40 MG TAB PO ×2 (05:48→18:04)
[2019-01-21] MEDS: BUMETANIDE 2 MG in DEXTROSE 5% 17 ML IV ×2 (05:49→18:04)
[2019-01-21 07:02] LABS: ADD MAN DIFF? NO
[2019-01-21 07:04] LABS: WHITE BLOOD COUNT 3.2 10^3/ul (4.8-10.8)
[2019-01-21 07:05] LABS: ABNORMAL IP MESSAGE 1; BASOPHILS % 0.6 % (0.0-2.0); EOSINOPHILS # 0.2 10^3/ul (0.0-0.5); EOSINOPHILS % 5.7 % (0.0-7.0); HEMATOCRIT 24.1 % (42.0-52.0); HEMOGLOBIN 7.5 g/dl (14.0-18.0); LYMPHOCYTES # 0.9 10^3/ul (0.8-2.9); LYMPHOCYTES % 27.8 % (15.0-51.0); MEAN CORPUSCULAR HEMOGLOBIN 33.2 pg (29.0-33.0); MEAN CORPUSCULAR HGB CONC 31.1 g/dl (32.0-37.0); MEAN CORPUSCULAR VOLUME 106.6 fl (82.0-101.0); MEAN PLATELET VOLUME 10.5 fl (7.4-10.4); MONOCYTE # 0.2 10^3/ul (0.3-0.9); MONOCYTES % 6.3 % (0.0-11.0); NEUTROPHIL # 1.9 10^3/ul (1.6-7.5); NEUTROPHILS % 59.3 % (39.0-77.0); PLATELET COUNT 99 10^3/UL (140-415); POSITIVE DIFF @See below; RED BLOOD COUNT 2.26 10^6/ul (4.70-6.10)
[2019-01-21 07:44] LABS: ALANINE AMINOTRANSFERASE 42 IU/L (13-69); ALBUMIN 2.4 g/dl (3.3-4.9); ALKALINE PHOSPHATASE 315 IU/L (42-121); ANION GAP 3 (5-13); ASPARTATE AMINO TRANSFERASE 51 IU/L (15-46); BILIRUBIN,INDIRECT 1.2 mg/dl (0-1.1); BILIRUBIN,TOTAL 1.2 mg/dl (0.2-1.3); BLOOD UREA NITROGEN 21 mg/dl (7-20); CARBON DIOXIDE 35 mmol/L (21-31); CHLORIDE 100 mmol/L (97-110); CREATININE 0.76 mg/dl (0.61-1.24); GLUCOSE 87 mg/dl (70-220); POTASSIUM 4.3 mmol/L (3.5-5.1); SODIUM 138 mmol/L (135-144); TOTAL PROTEIN 5.4 g/dl (6.1-8.1)
[2019-01-21 07:50] LABS: PHOSPHORUS 3.5 mg/dl (2.5-4.9)
[2019-01-21 07:53] LABS: B-TYPE NATRIURETIC PEPTIDE 3210 PG/ML (0-450)
[2019-01-21] MEDS: CITALOPRAM 20 MG TAB PO (08:21)
[2019-01-21] MEDS: FISH OIL 1,000 MG CAP PO ×3 (08:21→21:47)
[2019-01-21] MEDS: POTASSIUM CHLORIDE (SR) 8 MEQ CAP PO (08:21)
[2019-01-21] MEDS: APIXABAN 5 MG TABLET PO ×2 (08:21→21:47)
[2019-01-21] MEDS: FERROUS SULFATE (EC) 325 MG TAB PO ×2 (08:22→21:47)
[2019-01-21] MEDS: DIGOXIN 0.125 MG TAB PO (14:06)
[2019-01-21] MEDS: TAMSULOSIN (SR) 0.4 MG CAP PO (21:47)
[2019-01-22] MEDS: LEVALBUTEROL (NEB) 0.63 MG/3 ML AMP HHN ×4 (01:35→21:26)
[2019-01-22] MEDS: PANTOPRAZOLE (EC) 40 MG TAB PO ×2 (06:05→18:15)
[2019-01-22] MEDS: BUMETANIDE 2 MG in DEXTROSE 5% 17 ML IV ×2 (06:06→18:15)
[2019-01-22 06:22] LABS: ADD MAN DIFF? NO; BASOPHILS % 0.7 % (0.0-2.0); EOSINOPHILS # 0.2 10^3/ul (0.0-0.5); EOSINOPHILS % 5.2 % (0.0-7.0); HEMATOCRIT 23.6 % (42.0-52.0); HEMOGLOBIN 7.3 g/dl (14.0-18.0); LYMPHOCYTES # 0.6 10^3/ul (0.8-2.9); MEAN CORPUSCULAR HEMOGLOBIN 33.2 pg (29.0-33.0); MEAN CORPUSCULAR HGB CONC 30.9 g/dl (32.0-37.0); MEAN CORPUSCULAR VOLUME 107.3 fl (82.0-101.0); MONOCYTE # 0.2 10^3/ul (0.3-0.9); MONOCYTES % 6.3 % (0.0-11.0); NEUTROPHIL # 1.9 10^3/ul (1.6-7.5); NEUTROPHILS % 65.1 % (39.0-77.0); PLATELET COUNT 102 10^3/UL (140-415); RED CELL DISTRIBUTION WIDTH 17.2 % (11.5-14.5)
[2019-01-22 06:22] LABS: WHITE BLOOD COUNT 2.9 10^3/ul (4.8-10.8)
[2019-01-22 07:09] LABS: PHOSPHORUS 3.3 mg/dl (2.5-4.9)
[2019-01-22 07:18] LABS: ALANINE AMINOTRANSFERASE 46 IU/L (13-69); ALBUMIN 2.4 g/dl (3.3-4.9); ALKALINE PHOSPHATASE 313 IU/L (42-121); ANION GAP 6 (5-13); ASPARTATE AMINO TRANSFERASE 53 IU/L (15-46); BILIRUBIN,INDIRECT 1.2 mg/dl (0-1.1); BILIRUBIN,TOTAL 1.2 mg/dl (0.2-1.3); BLOOD UREA NITROGEN 24 mg/dl (7-20); CARBON DIOXIDE 37 mmol/L (21-31); CHLORIDE 97 mmol/L (97-110); CREATININE 0.81 mg/dl (0.61-1.24); GLUCOSE 92 mg/dl (70-220); POTASSIUM 4.5 mmol/L (3.5-5.1); SODIUM 140 mmol/L (135-144); TOTAL PROTEIN 5.4 g/dl (6.1-8.1)
[2019-01-22] MEDS: APIXABAN 5 MG TABLET PO ×2 (09:58→21:45)
[2019-01-22] MEDS: FISH OIL 1,000 MG CAP PO ×3 (09:58→21:45)
[2019-01-22] MEDS: FERROUS SULFATE (EC) 325 MG TAB PO ×2 (09:59→21:45)
[2019-01-22] MEDS: CITALOPRAM 20 MG TAB PO (09:59)
[2019-01-22] MEDS: POTASSIUM CHLORIDE (SR) 8 MEQ CAP PO (13:49)
[2019-01-22] MEDS: DIGOXIN 0.125 MG TAB PO (13:50)
[2019-01-22] MEDS: TAMSULOSIN (SR) 0.4 MG CAP PO (21:45)
[2019-01-23] MEDS: LEVALBUTEROL (NEB) 0.63 MG/3 ML AMP HHN ×3 (02:08→13:56)
[2019-01-23 05:16] LABS: ABNORMAL IP MESSAGE 1; HEMATOCRIT 22.1 % (42.0-52.0); MEAN CORPUSCULAR HGB CONC 31.7 g/dl (32.0-37.0); MEAN CORPUSCULAR VOLUME 107.3 fl (82.0-101.0); MEAN PLATELET VOLUME 10.4 fl (7.4-10.4); PLATELET COUNT 99 10^3/UL (140-415); POSITIVE DIFF @See below; RED BLOOD COUNT 2.06 10^6/ul (4.70-6.10); RED CELL DISTRIBUTION WIDTH 17.2 % (11.5-14.5)
[2019-01-23 05:16] LABS: WHITE BLOOD COUNT 2.6 10^3/ul (4.8-10.8)
[2019-01-23 05:28] LABS: ADD MAN DIFF? YES
[2019-01-23 05:40] LABS: ALANINE AMINOTRANSFERASE 38 IU/L (13-69); ALBUMIN 2.3 g/dl (3.3-4.9); ALBUMIN/GLOBULIN RATIO 0.79; ALKALINE PHOSPHATASE 290 IU/L (42-121); ANION GAP 2 (5-13); ASPARTATE AMINO TRANSFERASE 33 IU/L (15-46); BILIRUBIN,INDIRECT 1.4 mg/dl (0-1.1); BILIRUBIN,TOTAL 1.4 mg/dl (0.2-1.3); BLOOD UREA NITROGEN 23 mg/dl (7-20); CALCIUM 7.7 mg/dl (8.4-10.2); CARBON DIOXIDE 37 mmol/L (21-31); CHLORIDE 98 mmol/L (97-110); CREATININE 0.81 mg/dl (0.61-1.24); GLUCOSE 87 mg/dl (70-220); POTASSIUM 3.5 mmol/L (3.5-5.1); SODIUM 137 mmol/L (135-144); TOTAL PROTEIN 5.2 g/dl (6.1-8.1)
[2019-01-23] MEDS: PANTOPRAZOLE (EC) 40 MG TAB PO ×2 (05:47→18:37)
[2019-01-23] MEDS: BUMETANIDE 2 MG in DEXTROSE 5% 17 ML IV (05:47)
[2019-01-23 06:03] LABS: MAGNESIUM 1.9 mg/dl (1.7-2.5)
[2019-01-23 06:03] LABS: PHOSPHORUS 3.4 mg/dl (2.5-4.9)
[2019-01-23 07:08] LABS: ANISOCYTOSIS 1+ (0-0); BAND NEUTROPHILS #M 0.1 10^3/ul (0.0-0.6); BAND NEUTROPHILS % (M) 5 % (0-4); BASOPHILS % (M) 2 % (0-2); EOSINOPHILS % (M) 1 % (0-7); LYMPHOCYTES #M 0.4 10^3/ul (0.8-2.9); LYMPHOCYTES % (M) 19 % (15-51); MONOCYTES % (M) 2 % (0-11); OVALOCYTES 1+ (0-0); PLATELET ESTIMATE DECREASED; POLYCHROMASIA 1+ (0-0); SEG NEUT #M 1.8 10^3/ul (1.6-7.5); SEGMENTED NEUTROPHILS (M) % 71 % (39-77); SMUDGE%M 11 % (0-0)
[2019-01-23] MEDS: APIXABAN 5 MG TABLET PO ×2 (09:43→20:55)
[2019-01-23] MEDS: POTASSIUM CHLORIDE (SR) 8 MEQ CAP PO (09:44)
[2019-01-23] MEDS: FISH OIL 1,000 MG CAP PO ×3 (09:44→20:55)
[2019-01-23] MEDS: FERROUS SULFATE (EC) 325 MG TAB PO ×2 (09:44→20:55)
[2019-01-23] MEDS: CITALOPRAM 20 MG TAB PO (09:44)
[2019-01-23] MEDS: DIGOXIN 0.125 MG TAB PO (14:36)
[2019-01-23] MEDS: TAMSULOSIN (SR) 0.4 MG CAP PO (20:54)
[2019-01-24 05:27] LABS: ADD MAN DIFF? NO
[2019-01-24 05:33] LABS: BASOPHILS % 0.7 % (0.0-2.0); EOSINOPHILS # 0.2 10^3/ul (0.0-0.5); EOSINOPHILS % 5.7 % (0.0-7.0); HEMATOCRIT 23.1 % (42.0-52.0); HEMOGLOBIN 7.2 g/dl (14.0-18.0); LYMPHOCYTES # 0.8 10^3/ul (0.8-2.9); LYMPHOCYTES % 26.6 % (15.0-51.0); MEAN CORPUSCULAR HGB CONC 31.2 g/dl (32.0-37.0); MEAN PLATELET VOLUME 10.5 fl (7.4-10.4); MONOCYTE # 0.2 10^3/ul (0.3-0.9); MONOCYTES % 6.7 % (0.0-11.0); NEUTROPHIL # 1.8 10^3/ul (1.6-7.5); NEUTROPHILS % 59.6 % (39.0-77.0); PLATELET COUNT 117 10^3/UL (140-415); RED BLOOD COUNT 2.12 10^6/ul (4.70-6.10); RED CELL DISTRIBUTION WIDTH 17.2 % (11.5-14.5)
[2019-01-24] MEDS: PANTOPRAZOLE (EC) 40 MG TAB PO ×2 (05:58→18:01)
[2019-01-24 06:08] LABS: ALANINE AMINOTRANSFERASE 38 IU/L (13-69); ALBUMIN 2.3 g/dl (3.3-4.9); ALBUMIN/GLOBULIN RATIO 0.76; ALKALINE PHOSPHATASE 283 IU/L (42-121); ANION GAP 3 (5-13); ASPARTATE AMINO TRANSFERASE 30 IU/L (15-46); BILIRUBIN,INDIRECT 1.5 mg/dl (0-1.1); BILIRUBIN,TOTAL 1.5 mg/dl (0.2-1.3); BLOOD UREA NITROGEN 25 mg/dl (7-20); CALCIUM 7.9 mg/dl (8.4-10.2); CARBON DIOXIDE 36 mmol/L (21-31); CHLORIDE 98 mmol/L (97-110); CREATININE 0.77 mg/dl (0.61-1.24); GLUCOSE 88 mg/dl (70-220); POTASSIUM 4.2 mmol/L (3.5-5.1); SODIUM 137 mmol/L (135-144); TOTAL PROTEIN 5.3 g/dl (6.1-8.1)
[2019-01-24 06:18] LABS: DIGOXIN 1.1 ng/ml (1.0-2.0)
[2019-01-24] MEDS: CITALOPRAM 20 MG TAB PO (08:32)
[2019-01-24] MEDS: BUMETANIDE 0.5 MG TAB PO (08:32)
[2019-01-24] MEDS: FISH OIL 1,000 MG CAP PO ×3 (08:33→21:26)
[2019-01-24] MEDS: POTASSIUM CHLORIDE (SR) 8 MEQ CAP PO (08:33)
[2019-01-24] MEDS: FERROUS SULFATE (EC) 325 MG TAB PO ×2 (08:33→21:26)
[2019-01-24] MEDS: APIXABAN 5 MG TABLET PO ×2 (08:33→21:26)
[2019-01-24] MEDS: DIGOXIN 0.125 MG TAB PO (12:53)
[2019-01-24] MEDS: BUMETANIDE 1 MG TAB PO (18:01)
[2019-01-24] MEDS: TAMSULOSIN (SR) 0.4 MG CAP PO (21:27)
[2019-01-25 05:24] LABS: ADD MAN DIFF? NO
[2019-01-25 05:31] LABS: WHITE BLOOD COUNT 2.8 10^3/ul (4.8-10.8)
[2019-01-25 05:31] LABS: BASOPHILS % 0.4 % (0.0-2.0); EOSINOPHILS # 0.2 10^3/ul (0.0-0.5); EOSINOPHILS % 6.7 % (0.0-7.0); HEMATOCRIT 23.1 % (42.0-52.0); HEMOGLOBIN 7.3 g/dl (14.0-18.0); LYMPHOCYTES # 0.7 10^3/ul (0.8-2.9); LYMPHOCYTES % 25.9 % (15.0-51.0); MEAN CORPUSCULAR HGB CONC 31.6 g/dl (32.0-37.0); MEAN CORPUSCULAR VOLUME 107.4 fl (82.0-101.0); MEAN PLATELET VOLUME 10.3 fl (7.4-10.4); MONOCYTE # 0.2 10^3/ul (0.3-0.9); MONOCYTES % 5.3 % (0.0-11.0); NEUTROPHIL # 1.7 10^3/ul (1.6-7.5); NEUTROPHILS % 61.3 % (39.0-77.0); PLATELET COUNT 120 10^3/UL (140-415); RED BLOOD COUNT 2.15 10^6/ul (4.70-6.10); RED CELL DISTRIBUTION WIDTH 17.1 % (11.5-14.5)
[2019-01-25 05:48] LABS: ANION GAP 5 (5-13); BLOOD UREA NITROGEN 22 mg/dl (7-20); CALCIUM 7.6 mg/dl (8.4-10.2); CARBON DIOXIDE 35 mmol/L (21-31); CHLORIDE 98 mmol/L (97-110); CREATININE 0.71 mg/dl (0.61-1.24); GLUCOSE 84 mg/dl (70-220); POTASSIUM 3.4 mmol/L (3.5-5.1); SODIUM 138 mmol/L (135-144)
[2019-01-25] MEDS: BUMETANIDE 1 MG TAB PO ×2 (06:58→17:02)
[2019-01-25] MEDS: PANTOPRAZOLE (EC) 40 MG TAB PO ×2 (06:58→17:02)
[2019-01-25] MEDS: POTASSIUM CHLORIDE (SR) 8 MEQ CAP PO ×2 (08:36→10:18)
[2019-01-25] MEDS: FERROUS SULFATE (EC) 325 MG TAB PO ×2 (08:36→20:42)
[2019-01-25] MEDS: FISH OIL 1,000 MG CAP PO ×3 (08:37→20:42)
[2019-01-25] MEDS: APIXABAN 5 MG TABLET PO ×2 (08:37→20:42)
[2019-01-25] MEDS: CITALOPRAM 20 MG TAB PO (08:37)
[2019-01-25] MEDS: POTASSIUM CHLORIDE 20 MEQ POWDER FOR ORAL SOLN PO (10:30)
[2019-01-25] MEDS: DIGOXIN 0.125 MG TAB PO (12:22)
[2019-01-25] MEDS: SENNA/DOCUSATE NA (8.6MG/50MG) TAB PO (13:00)
[2019-01-25] MEDS: THIAMINE 100 MG TAB PO (17:02)
[2019-01-25] MEDS: TAMSULOSIN (SR) 0.4 MG CAP PO (20:43)
[2019-01-26 05:22] LABS: ADD MAN DIFF? NO
[2019-01-26 05:25] LABS: WHITE BLOOD COUNT 2.7 10^3/ul (4.8-10.8)
[2019-01-26 05:25] LABS: BASOPHILS % 0.4 % (0.0-2.0); EOSINOPHILS # 0.2 10^3/ul (0.0-0.5); EOSINOPHILS % 6.3 % (0.0-7.0); HEMATOCRIT 23.5 % (42.0-52.0); HEMOGLOBIN 7.4 g/dl (14.0-18.0); LYMPHOCYTES # 0.8 10^3/ul (0.8-2.9); LYMPHOCYTES % 27.7 % (15.0-51.0); MEAN CORPUSCULAR HEMOGLOBIN 33.9 pg (29.0-33.0); MEAN CORPUSCULAR HGB CONC 31.5 g/dl (32.0-37.0); MEAN CORPUSCULAR VOLUME 107.8 fl (82.0-101.0); MEAN PLATELET VOLUME 10.3 fl (7.4-10.4); MONOCYTE # 0.2 10^3/ul (0.3-0.9); MONOCYTES % 6.3 % (0.0-11.0); NEUTROPHIL # 1.6 10^3/ul (1.6-7.5); NEUTROPHILS % 58.6 % (39.0-77.0); PLATELET COUNT 115 10^3/UL (140-415); RED BLOOD COUNT 2.18 10^6/ul (4.70-6.10); RED CELL DISTRIBUTION WIDTH 16.9 % (11.5-14.5)
[2019-01-26 05:45] LABS: DIGOXIN 1.2 ng/ml (1.0-2.0)
[2019-01-26 05:47] LABS: ANION GAP 3 (5-13); BLOOD UREA NITROGEN 19 mg/dl (7-20); CALCIUM 7.8 mg/dl (8.4-10.2); CARBON DIOXIDE 36 mmol/L (21-31); CHLORIDE 98 mmol/L (97-110); CREATININE 0.72 mg/dl (0.61-1.24); GLUCOSE 85 mg/dl (70-220); POTASSIUM 3.7 mmol/L (3.5-5.1); SODIUM 137 mmol/L (135-144)
[2019-01-26] MEDS: PANTOPRAZOLE (EC) 40 MG TAB PO ×2 (06:44→18:08)
[2019-01-26] MEDS: BUMETANIDE 1 MG TAB PO ×2 (06:44→18:08)
[2019-01-26] MEDS: FERROUS SULFATE (EC) 325 MG TAB PO ×2 (09:00→20:51)
[2019-01-26] MEDS: FISH OIL 1,000 MG CAP PO ×3 (09:00→20:51)
[2019-01-26] MEDS: CITALOPRAM 20 MG TAB PO (09:00)
[2019-01-26] MEDS: THIAMINE 100 MG TAB PO (09:01)
[2019-01-26] MEDS: SENNA/DOCUSATE NA (8.6MG/50MG) TAB PO (09:01)
[2019-01-26] MEDS: APIXABAN 5 MG TABLET PO ×2 (09:01→20:51)
[2019-01-26] MEDS: POTASSIUM CHLORIDE (SR) 8 MEQ CAP PO (09:02)
[2019-01-26] MEDS: DIGOXIN 0.125 MG TAB PO (13:35)
[2019-01-26] MEDS: TAMSULOSIN (SR) 0.4 MG CAP PO (20:51)
[2019-01-26] MEDS: LEVALBUTEROL (NEB) 0.63 MG/3 ML AMP HHN (22:19)
[2019-01-27] MEDS: PANTOPRAZOLE (EC) 40 MG TAB PO ×2 (06:53→17:55)
[2019-01-27] MEDS: BUMETANIDE 1 MG TAB PO ×2 (06:53→17:54)
[2019-01-27] MEDS: SENNA/DOCUSATE NA (8.6MG/50MG) TAB PO (09:00)
[2019-01-27] MEDS: POTASSIUM CHLORIDE (SR) 8 MEQ CAP PO (09:37)
[2019-01-27] MEDS: CITALOPRAM 20 MG TAB PO (09:38)
[2019-01-27] MEDS: FISH OIL 1,000 MG CAP PO ×3 (09:38→21:48)
[2019-01-27] MEDS: FERROUS SULFATE (EC) 325 MG TAB PO ×2 (09:39→21:48)
[2019-01-27] MEDS: APIXABAN 5 MG TABLET PO ×2 (09:41→21:48)
[2019-01-27] MEDS: DIGOXIN 0.125 MG TAB PO (14:20)
[2019-01-27] MEDS: THIAMINE 100 MG TAB PO (17:54)
[2019-01-27] MEDS: TAMSULOSIN (SR) 0.4 MG CAP PO (21:48)
[2019-01-28] MEDS: BUMETANIDE 1 MG TAB PO (05:29)
[2019-01-28] MEDS: PANTOPRAZOLE (EC) 40 MG TAB PO (05:29)
[2019-01-28] MEDS: POTASSIUM CHLORIDE (SR) 8 MEQ CAP PO (08:55)
[2019-01-28] MEDS: THIAMINE 100 MG TAB PO (08:55)
[2019-01-28] MEDS: SENNA/DOCUSATE NA (8.6MG/50MG) TAB PO (08:56)
[2019-01-28] MEDS: FERROUS SULFATE (EC) 325 MG TAB PO (08:57)
[2019-01-28] MEDS: FISH OIL 1,000 MG CAP PO ×2 (08:57→13:21)
[2019-01-28] MEDS: CITALOPRAM 20 MG TAB PO (08:57)
[2019-01-28] MEDS: APIXABAN 5 MG TABLET PO (08:58)
[2019-01-28] MEDS: DIGOXIN 0.125 MG TAB PO (13:23)
== END 2019-01-28 15:20 | disposition home health service (06) | DRG 293 ==
LOC: TEL 23:49 → E/R 18:10 → MS1 01-22 04:33
DX: I11.0 Hypertensive heart disease with heart failure (principal); I50.33 Acute on chronic diastolic (congestive) heart failure; I25.5 Ischemic cardiomyopathy; I35.0 Nonrheumatic aortic (valve) stenosis; I07.1 Rheumatic tricuspid insufficiency; K74.60 Unspecified cirrhosis of liver; D53.9 Nutritional anemia, unspecified; I48.2 Chronic atrial fibrillation; I27.20 Pulmonary hypertension, unspecified; I25.10 Atherosclerotic heart disease of native coronary artery without angina pectoris; K29.70 Gastritis, unspecified, without bleeding; N40.0 Benign prostatic hyperplasia without lower urinary tract symptoms; Z79.01 Long term (current) use of anticoagulants
CPT/HCPCS: 36415; 71045; 80048; 80053; 80162; 81001; 83735; 83880; 84100; 84443; 84484; 85025; 85610; 85730; 93005; 93306; 93970; 94640; 94664; 96374; 97116; 97162; 97530; 99285-25

== ENCOUNTER 2019-06-20 18:30 | Inpatient (IN) | payer OTHER ==
[2019-06-20 19:50] LABS: URINE PH (Dip) POC 5.5 (5.0-8.5)
[2019-06-20 19:50] LABS: URINE BLOOD (Dip) POC Trace-lysed (NEGATIVE); URINE GLUCOSE (Dip) POC Negative (NEGATIVE); URINE KETONES (Dip) POC Trace (NEGATIVE); URINE LEUKOCYTE EST (Dip) POC Trace (NEGATIVE); URINE NITRITE (Dip) POC Negative (NEGATIVE); URINE TOTAL PROTEIN POC Trace (NEGATIVE)
[2019-06-20 20:06] LABS: ABNORMAL IP MESSAGE 1; HEMATOCRIT 26.8 % (42.0-52.0); HEMOGLOBIN 8.8 g/dl (14.0-18.0); MEAN CORPUSCULAR HEMOGLOBIN 34.4 pg (29.0-33.0); MEAN CORPUSCULAR HGB CONC 32.8 g/dl (32.0-37.0); MEAN CORPUSCULAR VOLUME 104.7 fl (82.0-101.0); MEAN PLATELET VOLUME 9.7 fl (7.4-10.4); PLATELET COUNT 166 10^3/UL (140-415); POSITIVE DIFF @See below; RED BLOOD COUNT 2.56 10^6/ul (4.70-6.10); RED CELL DISTRIBUTION WIDTH 14.6 % (11.5-14.5)
[2019-06-20 20:06] LABS: WHITE BLOOD COUNT 4.7 10^3/ul (4.8-10.8)
[2019-06-20 20:12] LABS: ALANINE AMINOTRANSFERASE 18 IU/L (13-69); ALBUMIN 2.7 g/dl (3.3-4.9); ALBUMIN/GLOBULIN RATIO 0.79; ALKALINE PHOSPHATASE 171 IU/L (42-121); ANION GAP 8 (5-13); ASPARTATE AMINO TRANSFERASE 20 IU/L (15-46); BLOOD UREA NITROGEN 20 mg/dl (7-20); CALCIUM 7.9 mg/dl (8.4-10.2); CARBON DIOXIDE 30 mmol/L (21-31); CHLORIDE 93 mmol/L (97-110); CREATININE 1.17 mg/dl (0.61-1.24); GLUCOSE 117 mg/dl (70-220); SODIUM 131 mmol/L (135-144); TOTAL PROTEIN 6.1 g/dl (6.1-8.1)
[2019-06-20 20:19] LABS: ADD MAN DIFF? YES
[2019-06-20 20:23] LABS: LIPASE < 10 U/L (23-300); POTASSIUM 2.7 mmol/L (3.5-5.1)
[2019-06-20 20:27] LABS: MAGNESIUM 1.7 mg/dl (1.7-2.5)
[2019-06-20 20:35] LABS: DIGOXIN 2.1 ng/ml (1.0-2.0)
[2019-06-20] MEDS: SOD CHLORIDE 0.9% 500 ML IV ×2 (20:38→23:07)
[2019-06-20] MEDS: POTASSIUM CHLORIDE 100 ML IVPB ×2 (20:40→22:25)
[2019-06-20 20:58] LABS: AMMONIA 12 umol/l (9-30)
[2019-06-20 21:38] LABS: ANISOCYTOSIS 1+ (0-0); BAND NEUTROPHILS % (M) 2 % (0-4); EOSINOPHILS % (M) 1 % (0-7); LYMPHOCYTES #M 0.2 10^3/ul (0.8-2.9); LYMPHOCYTES % (M) 5 % (15-51); MONOCYTE #M 0.2 10^3/ul (0.3-0.9); MONOCYTES % (M) 6 % (0-11); POIKILOCYTOSIS 1+ (0-0); POLYCHROMASIA 1+ (0-0); REACTIVE LYMPHOCYTES% (M) 1 % (0-0); SEGMENTED NEUTROPHILS (M) % 85 % (39-77); SMUDGE%M 17 % (0-0)
[2019-06-20] MEDS ORDERED: NACL 0.9% 3 ML SYG IV (22:00)
[2019-06-20] MEDS ORDERED: BISACODYL (EC) 5 MG TAB PO (22:00)
[2019-06-20] MEDS ORDERED: ONDANSETRON 4 MG INJ IV (22:00)
[2019-06-20] MEDS ORDERED: ACETAMINOPHEN 325 MG TAB PO (22:00)
[2019-06-20] MEDS: SOD CHLORIDE 0.9% 1,000 ML IV (22:25)
[2019-06-20] MEDS: MAGNESIUM SULFATE 3 GM in DEXTROSE 5% 100 ML IVPB (22:25)
[2019-06-20] MEDS: ALBUMIN HUMAN 25% 100 ML IV ×2 (22:58→23:53)
[2019-06-20 23:00] LABS: AMMONIA 23 umol/l (9-30)
[2019-06-20 23:08] LABS: B-TYPE NATRIURETIC PEPTIDE 8810 PG/ML (0-450)
[2019-06-21] MEDS: CEFTRIAXONE 1 GM/50 ML (PMX) 50 ML IVPB ×2 (01:11→22:43)
[2019-06-21] MEDS: POTASSIUM CHLORIDE 100 ML IVPB (01:11)
[2019-06-21] MEDS ORDERED: ATROPINE 1 MG/10 ML SYRINGE IV (05:30)
[2019-06-21] MEDS: PIPER-TAZO 3.375 GM IV (PMX) 100 ML IVPB ×4 (06:07→23:51)
[2019-06-21 06:17] LABS: ABNORMAL IP MESSAGE 1; HEMATOCRIT 21.6 % (42.0-52.0); HEMOGLOBIN 7.1 g/dl (14.0-18.0); MEAN CORPUSCULAR HEMOGLOBIN 34.6 pg (29.0-33.0); MEAN CORPUSCULAR HGB CONC 32.9 g/dl (32.0-37.0); MEAN CORPUSCULAR VOLUME 105.4 fl (82.0-101.0); PLATELET COUNT 133 10^3/UL (140-415); POSITIVE DIFF @See below; RED BLOOD COUNT 2.05 10^6/ul (4.70-6.10); RED CELL DISTRIBUTION WIDTH 14.5 % (11.5-14.5)
[2019-06-21 06:17] LABS: WHITE BLOOD COUNT 3.4 10^3/ul (4.8-10.8)
[2019-06-21 06:28] LABS: ADD MAN DIFF? YES
[2019-06-21 06:38] LABS: ALANINE AMINOTRANSFERASE 21 IU/L (13-69); ALBUMIN 2.5 g/dl (3.3-4.9); ALBUMIN/GLOBULIN RATIO 0.83; ALKALINE PHOSPHATASE 121 IU/L (42-121); ANION GAP 4 (5-13); ASPARTATE AMINO TRANSFERASE 16 IU/L (15-46); BILIRUBIN,INDIRECT 2.3 mg/dl (0-1.1); BILIRUBIN,TOTAL 2.3 mg/dl (0.2-1.3); BLOOD UREA NITROGEN 18 mg/dl (7-20); CALCIUM 7.4 mg/dl (8.4-10.2); CARBON DIOXIDE 30 mmol/L (21-31); CHLORIDE 99 mmol/L (97-110); CHOL/HDL RATIO 2.5 RATIO; CHOLESTEROL 87 mg/dl (100-200); GLUCOSE 95 mg/dl (70-220); HDL CHOLESTEROL 34 mg/dl (31-75); LDL CHOLESTEROL,CALCULATED 47 mg/dl; SODIUM 133 mmol/L (135-144); TOTAL PROTEIN 5.5 g/dl (6.1-8.1); TRIGLYCERIDES 31 mg/dl (0-149)
[2019-06-21 06:42] LABS: INR 1.74; PROTIME 20.4 Sec (11.9-14.9); PT RATIO 1.6
[2019-06-21 06:43] LABS: PARTIAL THROMBOPLASTIN TIME 39.1 Sec (23.0-35.0)
[2019-06-21 06:51] LABS: DIGOXIN 2.4 ng/ml (1.0-2.0)
[2019-06-21 07:51] LABS: ANISOCYTOSIS 2+ (0-0); BAND NEUTROPHILS #M 0.6 10^3/ul (0.0-0.6); BAND NEUTROPHILS % (M) 20 % (0-4); BASOPHILS % (M) 1 % (0-2); BURR CELLS 1+ (0-0); EOSINOPHILS % (M) 4 % (0-7); GIANT THROMBO% (M) 3 % (0-0); LYMPHOCYTES #M 0.2 10^3/ul (0.8-2.9); LYMPHOCYTES % (M) 7 % (15-51); MONOCYTE #M 0.2 10^3/ul (0.3-0.9); MONOCYTES % (M) 8 % (0-11); PLATELET ESTIMATE NORMAL; POIKILOCYTOSIS 1+ (0-0); POLYCHROMASIA 3+ (0-0); SEG NEUT #M 2.1 10^3/ul (1.6-7.5); SEGMENTED NEUTROPHILS (M) % 60 % (39-77); SMUDGE%M 1 % (0-0)
[2019-06-21] MEDS ORDERED: FATTY ACIDS PO (09:00)
[2019-06-21] MEDS ORDERED: OMEGA PO (09:00)
[2019-06-21] MEDS ORDERED: FISH OIL PO (09:00)
[2019-06-21] MEDS: FISH OIL 1,000 MG CAP PO ×3 (09:00→20:57)
[2019-06-21] MEDS: DIGOXIN IMMUNE FAB (OVINE) 0.5 VIAL in SOD CHLORIDE 0.9% 50 ML IVPB (09:00)
[2019-06-21] MEDS: MEMANTINE 10 MG TAB PO ×2 (09:00→20:57)
[2019-06-21] MEDS: FERROUS SULFATE (EC) 325 MG TAB PO ×2 (09:00→20:57)
[2019-06-21] MEDS: CHOLECALCIFEROL 1,000 UNIT TAB PO (09:00)
[2019-06-21] MEDS ORDERED: [UNRECOGNIZED DRUG - OTHER] PO (09:00)
[2019-06-21] MEDS: POTASSIUM CHLORIDE 20 MEQ POWDER FOR ORAL SOLN PO (11:02)
[2019-06-21 11:54] LABS: ADD MAN DIFF? NO
[2019-06-21 11:57] LABS: WHITE BLOOD COUNT 4.2 10^3/ul (4.8-10.8)
[2019-06-21 11:57] LABS: ABNORMAL IP MESSAGE 1; BASOPHILS % 0.7 % (0.0-2.0); EOSINOPHILS # 0.1 10^3/ul (0.0-0.5); EOSINOPHILS % 1.2 % (0.0-7.0); HEMATOCRIT 22.8 % (42.0-52.0); HEMOGLOBIN 7.5 g/dl (14.0-18.0); LYMPHOCYTES # 0.3 10^3/ul (0.8-2.9); LYMPHOCYTES % 6.4 % (15.0-51.0); MEAN CORPUSCULAR HEMOGLOBIN 35.4 pg (29.0-33.0); MEAN CORPUSCULAR HGB CONC 32.9 g/dl (32.0-37.0); MEAN CORPUSCULAR VOLUME 107.5 fl (82.0-101.0); MEAN PLATELET VOLUME 10.1 fl (7.4-10.4); MONOCYTE # 0.3 10^3/ul (0.3-0.9); MONOCYTES % 6.8 % (0.0-11.0); NEUTROPHIL # 3.6 10^3/ul (1.6-7.5); NEUTROPHILS % 84.4 % (39.0-77.0); PLATELET COUNT 144 10^3/UL (140-415); POSITIVE DIFF @See below; RED BLOOD COUNT 2.12 10^6/ul (4.70-6.10); RED CELL DISTRIBUTION WIDTH 14.7 % (11.5-14.5)
[2019-06-21] MEDS: LIDOCAINE 1% (MPF) 5 ML VIAL (12:38)
[2019-06-21 13:10] LABS: FLD MN% 78.7 %; FLD PMN% 21.3 %; FLD RBC 0 /uL; FLD WBC 113 /cmm
[2019-06-21 13:41] LABS: FLD CLARITY CLEAR
[2019-06-21 13:41] LABS: FLD TYPE PARACENTHESIS
[2019-06-21 13:42] LABS: FLD COLOR YELLOW
[2019-06-21 14:30] LABS: FLUID GLUCOSE 97 mg/dl; FLUID TOTAL PROTEIN < 2.0 g/dl; FLUID TYPE PARACENTESIS FLUID
[2019-06-21] MEDS: PANTOPRAZOLE (EC) 40 MG TAB PO (17:34)
[2019-06-21 18:07] LABS: OCCULT BLOOD STOOL NEGATIVE (NEGATIVE)
[2019-06-21 18:12] LABS: DIGOXIN 2.8 ng/ml (1.0-2.0)
[2019-06-21 18:57] LABS: FOLATE 7.5 ng/ml (2.8-20.0)
[2019-06-21] MEDS: TAMSULOSIN (SR) 0.4 MG CAP PO (20:57)
[2019-06-22] MEDS: DIGOXIN IMMUNE FAB (OVINE) 1 VIAL in SOD CHLORIDE 0.9% 50 ML IVPB (00:43)
[2019-06-22] MEDS: PIPER-TAZO 3.375 GM IV (PMX) 100 ML IVPB ×4 (05:36→23:52)
[2019-06-22] MEDS: PANTOPRAZOLE (EC) 40 MG TAB PO ×2 (05:36→17:35)
[2019-06-22 05:47] LABS: ADD MAN DIFF? NO
[2019-06-22 05:51] LABS: ABNORMAL IP MESSAGE 1; BASOPHILS % 0.7 % (0.0-2.0); EOSINOPHILS # 0.1 10^3/ul (0.0-0.5); EOSINOPHILS % 3.4 % (0.0-7.0); HEMATOCRIT 21.6 % (42.0-52.0); HEMOGLOBIN 7.2 g/dl (14.0-18.0); LYMPHOCYTES # 0.4 10^3/ul (0.8-2.9); LYMPHOCYTES % 12.9 % (15.0-51.0); MEAN CORPUSCULAR HEMOGLOBIN 35.3 pg (29.0-33.0); MEAN CORPUSCULAR HGB CONC 33.3 g/dl (32.0-37.0); MEAN CORPUSCULAR VOLUME 105.9 fl (82.0-101.0); MONOCYTE # 0.2 10^3/ul (0.3-0.9); MONOCYTES % 7.8 % (0.0-11.0); NEUTROPHIL # 2.2 10^3/ul (1.6-7.5); NEUTROPHILS % 74.5 % (39.0-77.0); PLATELET COUNT 115 10^3/UL (140-415); POSITIVE DIFF @See below; RED BLOOD COUNT 2.04 10^6/ul (4.70-6.10); RED CELL DISTRIBUTION WIDTH 14.8 % (11.5-14.5)
[2019-06-22 05:51] LABS: WHITE BLOOD COUNT 2.9 10^3/ul (4.8-10.8)
[2019-06-22 06:22] LABS: DIGOXIN 2.4 ng/ml (1.0-2.0)
[2019-06-22 06:33] LABS: ANION GAP 2 (5-13); BLOOD UREA NITROGEN 16 mg/dl (7-20); CALCIUM 7.7 mg/dl (8.4-10.2); CARBON DIOXIDE 31 mmol/L (21-31); CHLORIDE 101 mmol/L (97-110); CREATININE 0.92 mg/dl (0.61-1.24); GLUCOSE 91 mg/dl (70-220); MAGNESIUM 2.2 mg/dl (1.7-2.5); PHOSPHORUS 2.9 mg/dl (2.5-4.9); SODIUM 134 mmol/L (135-144)
[2019-06-22 07:02] LABS: POTASSIUM 2.9 mmol/L (3.5-5.1)
[2019-06-22] MEDS: POTASSIUM CHLORIDE (SR) 20 MEQ TAB PO (07:59)
[2019-06-22] MEDS: POTASSIUM CHLORIDE 100 ML IVPB ×2 (08:01→15:57)
[2019-06-22] MEDS: MEMANTINE 10 MG TAB PO ×2 (09:13→20:07)
[2019-06-22] MEDS: CHOLECALCIFEROL 1,000 UNIT TAB PO (09:13)
[2019-06-22] MEDS: POTASSIUM CHLORIDE 20 MEQ POWDER FOR ORAL SOLN PO (09:13)
[2019-06-22] MEDS: FERROUS SULFATE (EC) 325 MG TAB PO ×2 (09:13→20:07)
[2019-06-22] MEDS: FISH OIL 1,000 MG CAP PO ×3 (09:13→20:09)
[2019-06-22] MEDS: BUMETANIDE 1 MG TAB PO (17:35)
[2019-06-22] MEDS: APIXABAN 5 MG TABLET PO (20:06)
[2019-06-22] MEDS: TAMSULOSIN (SR) 0.4 MG CAP PO (20:07)
[2019-06-22] MEDS: CEFTRIAXONE 1 GM/50 ML (PMX) 50 ML IVPB (22:49)
[2019-06-23] MEDS: BUMETANIDE 1 MG TAB PO ×2 (05:21→17:33)
[2019-06-23] MEDS: PIPER-TAZO 3.375 GM IV (PMX) 100 ML IVPB ×4 (05:21→23:38)
[2019-06-23] MEDS: PANTOPRAZOLE (EC) 40 MG TAB PO ×2 (05:21→17:33)
[2019-06-23 06:00] LABS: ADD MAN DIFF? NO
[2019-06-23 06:01] LABS: ABNORMAL IP MESSAGE 1; BASOPHILS % 0.9 % (0.0-2.0); EOSINOPHILS # 0.1 10^3/ul (0.0-0.5); HEMATOCRIT 22.8 % (42.0-52.0); HEMOGLOBIN 7.2 g/dl (14.0-18.0); LYMPHOCYTES # 0.6 10^3/ul (0.8-2.9); LYMPHOCYTES % 15.9 % (15.0-51.0); MEAN CORPUSCULAR HEMOGLOBIN 34.4 pg (29.0-33.0); MEAN CORPUSCULAR HGB CONC 31.6 g/dl (32.0-37.0); MEAN CORPUSCULAR VOLUME 109.1 fl (82.0-101.0); MONOCYTE # 0.3 10^3/ul (0.3-0.9); MONOCYTES % 8.9 % (0.0-11.0); NEUTROPHIL # 2.4 10^3/ul (1.6-7.5); NEUTROPHILS % 69.7 % (39.0-77.0); PLATELET COUNT 117 10^3/UL (140-415); POSITIVE DIFF @See below; RED BLOOD COUNT 2.09 10^6/ul (4.70-6.10)
[2019-06-23 06:01] LABS: WHITE BLOOD COUNT 3.5 10^3/ul (4.8-10.8)
[2019-06-23 06:50] LABS: DIGOXIN 1.8 ng/ml (1.0-2.0)
[2019-06-23 07:07] LABS: ANION GAP 0 (5-13); BLOOD UREA NITROGEN 14 mg/dl (7-20); CALCIUM 7.6 mg/dl (8.4-10.2); CARBON DIOXIDE 32 mmol/L (21-31); CHLORIDE 102 mmol/L (97-110); CREATININE 0.91 mg/dl (0.61-1.24); GLUCOSE 85 mg/dl (70-220); SODIUM 134 mmol/L (135-144)
[2019-06-23] MEDS: APIXABAN 5 MG TABLET PO ×2 (09:30→20:34)
[2019-06-23] MEDS: FERROUS SULFATE (EC) 325 MG TAB PO ×2 (09:30→20:34)
[2019-06-23] MEDS: POTASSIUM CHLORIDE 20 MEQ POWDER FOR ORAL SOLN PO (09:30)
[2019-06-23] MEDS: CHOLECALCIFEROL 1,000 UNIT TAB PO (09:30)
[2019-06-23] MEDS: FISH OIL 1,000 MG CAP PO ×3 (09:30→20:34)
[2019-06-23] MEDS: MEMANTINE 10 MG TAB PO ×2 (09:31→20:34)
[2019-06-23] MEDS: TAMSULOSIN (SR) 0.4 MG CAP PO (20:34)
[2019-06-23] MEDS: LOPERAMIDE 2 MG CAP PO (22:00)
[2019-06-23] MEDS: CEFTRIAXONE 1 GM/50 ML (PMX) 50 ML IVPB (23:38)
[2019-06-24 05:58] LABS: ADD MAN DIFF? NO
[2019-06-24] MEDS: PIPER-TAZO 3.375 GM IV (PMX) 100 ML IVPB ×3 (06:13→17:30)
[2019-06-24] MEDS: BUMETANIDE 1 MG TAB PO ×2 (06:13→17:30)
[2019-06-24] MEDS: PANTOPRAZOLE (EC) 40 MG TAB PO ×2 (06:14→17:30)
[2019-06-24 06:16] LABS: WHITE BLOOD COUNT 3.4 10^3/ul (4.8-10.8)
[2019-06-24 06:16] LABS: ABNORMAL IP MESSAGE 1; BASOPHILS % 0.9 % (0.0-2.0); EOSINOPHILS # 0.2 10^3/ul (0.0-0.5); EOSINOPHILS % 4.7 % (0.0-7.0); HEMATOCRIT 22.4 % (42.0-52.0); LYMPHOCYTES # 0.6 10^3/ul (0.8-2.9); LYMPHOCYTES % 16.6 % (15.0-51.0); MEAN CORPUSCULAR HEMOGLOBIN 34.3 pg (29.0-33.0); MEAN CORPUSCULAR HGB CONC 31.3 g/dl (32.0-37.0); MEAN CORPUSCULAR VOLUME 109.8 fl (82.0-101.0); MEAN PLATELET VOLUME 10.3 fl (7.4-10.4); MONOCYTE # 0.3 10^3/ul (0.3-0.9); MONOCYTES % 9.6 % (0.0-11.0); NEUTROPHIL # 2.3 10^3/ul (1.6-7.5); NEUTROPHILS % 66.7 % (39.0-77.0); PLATELET COUNT 115 10^3/UL (140-415); POSITIVE DIFF @See below; RED BLOOD COUNT 2.04 10^6/ul (4.70-6.10); RED CELL DISTRIBUTION WIDTH 14.9 % (11.5-14.5)
[2019-06-24 06:35] LABS: DIGOXIN 1.2 ng/ml (1.0-2.0)
[2019-06-24 06:50] LABS: ANION GAP 2 (5-13); BLOOD UREA NITROGEN 10 mg/dl (7-20); CALCIUM 7.4 mg/dl (8.4-10.2); CARBON DIOXIDE 31 mmol/L (21-31); CHLORIDE 102 mmol/L (97-110); CREATININE 0.89 mg/dl (0.61-1.24); GLUCOSE 88 mg/dl (70-220); MAGNESIUM 1.9 mg/dl (1.7-2.5); PHOSPHORUS 2.4 mg/dl (2.5-4.9); POTASSIUM 3.9 mmol/L (3.5-5.1); SODIUM 135 mmol/L (135-144)
[2019-06-24] MEDS: POTASSIUM CHLORIDE 20 MEQ POWDER FOR ORAL SOLN PO (09:01)
[2019-06-24] MEDS: LOPERAMIDE 2 MG CAP PO ×2 (09:02→20:22)
[2019-06-24] MEDS: APIXABAN 5 MG TABLET PO ×2 (09:02→20:22)
[2019-06-24] MEDS: CHOLECALCIFEROL 1,000 UNIT TAB PO (09:02)
[2019-06-24] MEDS: FISH OIL 1,000 MG CAP PO ×3 (09:02→20:22)
[2019-06-24] MEDS: FERROUS SULFATE (EC) 325 MG TAB PO ×2 (09:03→20:22)
[2019-06-24] MEDS: MEMANTINE 10 MG TAB PO ×2 (09:03→20:22)
[2019-06-24] MEDS ORDERED: HYOSCYAMINE 0.125 MG SUBL TAB PO (14:00)
[2019-06-24] MEDS: HYOSCYAMINE 0.125 MG SUBL TAB PO ×2 (17:30→22:34)
[2019-06-24] MEDS: LACTOBACILLUS RHAMNOSUS CAP PO (20:22)
[2019-06-24] MEDS: TAMSULOSIN (SR) 0.4 MG CAP PO (20:22)
[2019-06-24] MEDS: CEFTRIAXONE 1 GM/50 ML (PMX) 50 ML IVPB (22:34)
[2019-06-25] MEDS: PIPER-TAZO 3.375 GM IV (PMX) 100 ML IVPB ×4 (00:07→18:33)
[2019-06-25 05:34] LABS: ADD MAN DIFF? NO
[2019-06-25 05:58] LABS: BASOPHILS % 1.1 % (0.0-2.0); EOSINOPHILS # 0.2 10^3/ul (0.0-0.5); EOSINOPHILS % 4.7 % (0.0-7.0); HEMATOCRIT 22.6 % (42.0-52.0); HEMOGLOBIN 7.2 g/dl (14.0-18.0); LYMPHOCYTES # 0.7 10^3/ul (0.8-2.9); LYMPHOCYTES % 18.9 % (15.0-51.0); MEAN CORPUSCULAR HEMOGLOBIN 35.1 pg (29.0-33.0); MEAN CORPUSCULAR HGB CONC 31.9 g/dl (32.0-37.0); MEAN CORPUSCULAR VOLUME 110.2 fl (82.0-101.0); MEAN PLATELET VOLUME 10.4 fl (7.4-10.4); MONOCYTE # 0.3 10^3/ul (0.3-0.9); MONOCYTES % 9.5 % (0.0-11.0); NEUTROPHIL # 2.3 10^3/ul (1.6-7.5); PLATELET COUNT 110 10^3/UL (140-415); POSITIVE DIFF @See below; RED BLOOD COUNT 2.05 10^6/ul (4.70-6.10); RED CELL DISTRIBUTION WIDTH 15.1 % (11.5-14.5)
[2019-06-25 05:58] LABS: WHITE BLOOD COUNT 3.6 10^3/ul (4.8-10.8)
[2019-06-25 06:17] LABS: ANION GAP 4 (5-13); BLOOD UREA NITROGEN 8 mg/dl (7-20); CALCIUM 7.7 mg/dl (8.4-10.2); CARBON DIOXIDE 31 mmol/L (21-31); CHLORIDE 100 mmol/L (97-110); CREATININE 0.91 mg/dl (0.61-1.24); GLUCOSE 85 mg/dl (70-220); POTASSIUM 3.9 mmol/L (3.5-5.1); SODIUM 135 mmol/L (135-144)
[2019-06-25] MEDS: BUMETANIDE 1 MG TAB PO ×2 (06:21→18:33)
[2019-06-25] MEDS: PANTOPRAZOLE (EC) 40 MG TAB PO ×2 (06:21→18:33)
[2019-06-25] MEDS: HYOSCYAMINE 0.125 MG SUBL TAB PO ×3 (06:21→21:58)
[2019-06-25] MEDS: CALCIUM POLYCARBOPHIL 625 MG TAB PO (09:09)
[2019-06-25] MEDS: MEMANTINE 10 MG TAB PO ×2 (09:09→21:58)
[2019-06-25] MEDS: FISH OIL 1,000 MG CAP PO ×3 (09:09→21:58)
[2019-06-25] MEDS: POTASSIUM CHLORIDE 20 MEQ POWDER FOR ORAL SOLN PO (09:09)
[2019-06-25] MEDS: CHOLECALCIFEROL 1,000 UNIT TAB PO (09:09)
[2019-06-25] MEDS: FERROUS SULFATE (EC) 325 MG TAB PO ×2 (09:09→21:58)
[2019-06-25] MEDS: LACTOBACILLUS RHAMNOSUS CAP PO ×2 (09:09→21:59)
[2019-06-25] MEDS: APIXABAN 5 MG TABLET PO (09:10)
[2019-06-25] MEDS: LOPERAMIDE 2 MG CAP PO ×2 (09:10→21:58)
[2019-06-25] MEDS ORDERED: ALBUTEROL/IPRATROPIUM (NEB) 3 ML AMP HHN (10:00)
[2019-06-25 14:36] LABS: AHG CROSSMATCH 1 1
[2019-06-25] MEDS: SOD CHLORIDE 0.9% 250 ML IV* (14:55)
[2019-06-25] MEDS: ALBUTEROL/IPRATROPIUM (NEB) 3 ML AMP HHN ×2 (15:25→19:29)
[2019-06-25] MEDS: SUCRALFATE (100 MG/ML) 10ML CUP PO ×2 (18:33→21:58)
[2019-06-25] MEDS: TAMSULOSIN (SR) 0.4 MG CAP PO (21:58)
[2019-06-26] MEDS: PIPER-TAZO 3.375 GM IV (PMX) 100 ML IVPB ×3 (00:05→12:52)
[2019-06-26] MEDS: BUMETANIDE 1 MG TAB PO ×2 (05:22→17:26)
[2019-06-26 05:37] LABS: ADD MAN DIFF? NO
[2019-06-26 05:44] LABS: HEMATOCRIT 25.4 % (42.0-52.0); HEMOGLOBIN 8.2 g/dl (14.0-18.0); MEAN CORPUSCULAR HEMOGLOBIN 34.2 pg (29.0-33.0); MEAN CORPUSCULAR HGB CONC 32.3 g/dl (32.0-37.0); MEAN CORPUSCULAR VOLUME 105.8 fl (82.0-101.0)
[2019-06-26 05:44] LABS: WHITE BLOOD COUNT 3.9 10^3/ul (4.8-10.8)
[2019-06-26 05:45] LABS: EOSINOPHILS # 0.1 10^3/ul (0.0-0.5); EOSINOPHILS % 3.3 % (0.0-7.0); LYMPHOCYTES # 0.6 10^3/ul (0.8-2.9); MEAN PLATELET VOLUME 10.3 fl (7.4-10.4); MONOCYTE # 0.3 10^3/ul (0.3-0.9); MONOCYTES % 7.6 % (0.0-11.0); NEUTROPHIL # 2.8 10^3/ul (1.6-7.5); NEUTROPHILS % 71.3 % (39.0-77.0); PLATELET COUNT 108 10^3/UL (140-415); RED CELL DISTRIBUTION WIDTH 16.4 % (11.5-14.5)
[2019-06-26 05:56] LABS: ANION GAP 1 (5-13); BLOOD UREA NITROGEN 6 mg/dl (7-20); CALCIUM 7.6 mg/dl (8.4-10.2); CARBON DIOXIDE 32 mmol/L (21-31); CHLORIDE 100 mmol/L (97-110); CREATININE 0.78 mg/dl (0.61-1.24); GLUCOSE 86 mg/dl (70-220); MAGNESIUM 1.8 mg/dl (1.7-2.5); PHOSPHORUS 2.5 mg/dl (2.5-4.9); POTASSIUM 3.7 mmol/L (3.5-5.1); SODIUM 133 mmol/L (135-144)
[2019-06-26] MEDS: HYOSCYAMINE 0.125 MG SUBL TAB PO (06:25)
[2019-06-26] MEDS: PANTOPRAZOLE (EC) 40 MG TAB PO ×2 (06:25→17:26)
[2019-06-26] MEDS: LOPERAMIDE 2 MG CAP PO (08:31)
[2019-06-26] MEDS: FISH OIL 1,000 MG CAP PO ×3 (08:31→20:41)
[2019-06-26] MEDS: CALCIUM POLYCARBOPHIL 625 MG TAB PO (08:31)
[2019-06-26] MEDS: FERROUS SULFATE (EC) 325 MG TAB PO ×2 (08:32→20:41)
[2019-06-26] MEDS: POTASSIUM CHLORIDE 20 MEQ POWDER FOR ORAL SOLN PO (08:32)
[2019-06-26] MEDS: CHOLECALCIFEROL 1,000 UNIT TAB PO (08:32)
[2019-06-26] MEDS: LACTOBACILLUS RHAMNOSUS CAP PO ×2 (08:32→20:41)
[2019-06-26] MEDS: MEMANTINE 10 MG TAB PO ×2 (08:32→20:42)
[2019-06-26] MEDS: SUCRALFATE (100 MG/ML) 10ML CUP PO ×4 (08:32→20:41)
[2019-06-26] MEDS: ALBUTEROL/IPRATROPIUM (NEB) 3 ML AMP HHN ×3 (09:15→19:37)
[2019-06-26] MEDS ORDERED: LOPERAMIDE 2 MG CAP PO (12:00)
[2019-06-26] MEDS ORDERED: HYOSCYAMINE 0.125 MG SUBL TAB PO (12:00)
[2019-06-26] MEDS: BISACODYL (EC) 5 MG TAB PO (12:52)
[2019-06-26] MEDS: POLYETHYLENE GLYCOL 3350 119 GM POWDER PO (17:30)
[2019-06-26] MEDS: MAGNESIUM CITRATE 300 ML BTL PO (18:49)
[2019-06-26] MEDS: TAMSULOSIN (SR) 0.4 MG CAP PO (20:41)
[2019-06-27] MEDS: POLYETHYLENE GLYCOL 3350 119 GM POWDER PO (05:36)
[2019-06-27] MEDS: PANTOPRAZOLE (EC) 40 MG TAB PO ×2 (05:36→18:17)
[2019-06-27] MEDS: BUMETANIDE 1 MG TAB PO ×2 (05:36→18:17)
[2019-06-27 05:53] LABS: ADD MAN DIFF? NO
[2019-06-27 05:56] LABS: BASOPHILS % 0.7 % (0.0-2.0); EOSINOPHILS # 0.1 10^3/ul (0.0-0.5); EOSINOPHILS % 3.2 % (0.0-7.0); HEMATOCRIT 26.1 % (42.0-52.0); HEMOGLOBIN 8.5 g/dl (14.0-18.0); LYMPHOCYTES # 0.7 10^3/ul (0.8-2.9); LYMPHOCYTES % 16.9 % (15.0-51.0); MEAN CORPUSCULAR HEMOGLOBIN 34.4 pg (29.0-33.0); MEAN CORPUSCULAR HGB CONC 32.6 g/dl (32.0-37.0); MEAN CORPUSCULAR VOLUME 105.7 fl (82.0-101.0); MEAN PLATELET VOLUME 10.2 fl (7.4-10.4); MONOCYTE # 0.3 10^3/ul (0.3-0.9); MONOCYTES % 6.5 % (0.0-11.0); NEUTROPHIL # 2.9 10^3/ul (1.6-7.5); NEUTROPHILS % 71.7 % (39.0-77.0); PLATELET COUNT 108 10^3/UL (140-415); POSITIVE DIFF @See below; RED BLOOD COUNT 2.47 10^6/ul (4.70-6.10)
[2019-06-27 06:26] LABS: ANION GAP 2 (5-13); BLOOD UREA NITROGEN 5 mg/dl (7-20); CALCIUM 7.8 mg/dl (8.4-10.2); CARBON DIOXIDE 29 mmol/L (21-31); CHLORIDE 102 mmol/L (97-110); CREATININE 0.75 mg/dl (0.61-1.24); GLUCOSE 86 mg/dl (70-220); SODIUM 133 mmol/L (135-144)
[2019-06-27] MEDS: ALBUTEROL/IPRATROPIUM (NEB) 3 ML AMP HHN ×3 (08:19→20:05)
[2019-06-27] MEDS: MEMANTINE 10 MG TAB PO ×2 (09:03→21:35)
[2019-06-27] MEDS: CHOLECALCIFEROL 1,000 UNIT TAB PO (09:03)
[2019-06-27] MEDS: LACTOBACILLUS RHAMNOSUS CAP PO ×2 (09:03→21:36)
[2019-06-27] MEDS: CALCIUM POLYCARBOPHIL 625 MG TAB PO (09:04)
[2019-06-27] MEDS: BISACODYL (EC) 5 MG TAB PO (09:04)
[2019-06-27] MEDS: POTASSIUM CHLORIDE 20 MEQ POWDER FOR ORAL SOLN PO (09:04)
[2019-06-27] MEDS: FERROUS SULFATE (EC) 325 MG TAB PO ×2 (09:04→21:36)
[2019-06-27] MEDS: FISH OIL 1,000 MG CAP PO ×3 (09:04→21:35)
[2019-06-27] MEDS: SUCRALFATE (100 MG/ML) 10ML CUP PO ×4 (09:09→21:35)
[2019-06-27] MEDS: POTASSIUM CHLORIDE 100 ML IVPB (10:12)
[2019-06-27] MEDS: LIDOCAINE 100 MG SYRINGE (16:29)
[2019-06-27] MEDS: PROPOFOL 40 ML (16:29)
[2019-06-27] MEDS: FENTAnyl 50 MCG/ML VIAL (16:30)
[2019-06-27] MEDS: POTASSIUM CHLORIDE (SR) 20 MEQ TAB PO (18:15)
[2019-06-27] MEDS: TAMSULOSIN (SR) 0.4 MG CAP PO (21:35)
[2019-06-28 05:52] LABS: ADD MAN DIFF? NO
[2019-06-28 06:02] LABS: BASOPHILS % 0.9 % (0.0-2.0); EOSINOPHILS # 0.1 10^3/ul (0.0-0.5); EOSINOPHILS % 2.5 % (0.0-7.0); HEMATOCRIT 27.7 % (42.0-52.0); HEMOGLOBIN 8.6 g/dl (14.0-18.0); LYMPHOCYTES # 0.6 10^3/ul (0.8-2.9); LYMPHOCYTES % 13.9 % (15.0-51.0); MEAN CORPUSCULAR HEMOGLOBIN 32.7 pg (29.0-33.0); MEAN CORPUSCULAR VOLUME 105.3 fl (82.0-101.0); MEAN PLATELET VOLUME 10.2 fl (7.4-10.4); MONOCYTE # 0.2 10^3/ul (0.3-0.9); MONOCYTES % 4.8 % (0.0-11.0); NEUTROPHIL # 3.4 10^3/ul (1.6-7.5); NEUTROPHILS % 77.2 % (39.0-77.0); PLATELET COUNT 116 10^3/UL (140-415); POSITIVE DIFF @See below; RED BLOOD COUNT 2.63 10^6/ul (4.70-6.10); RED CELL DISTRIBUTION WIDTH 16.1 % (11.5-14.5)
[2019-06-28 06:02] LABS: WHITE BLOOD COUNT 4.4 10^3/ul (4.8-10.8)
[2019-06-28] MEDS: BUMETANIDE 1 MG TAB PO ×2 (06:21→17:03)
[2019-06-28] MEDS: PANTOPRAZOLE (EC) 40 MG TAB PO ×2 (06:21→17:03)
[2019-06-28 06:22] LABS: MAGNESIUM 1.9 mg/dl (1.7-2.5)
[2019-06-28 06:22] LABS: PHOSPHORUS 2.3 mg/dl (2.5-4.9)
[2019-06-28 06:35] LABS: ANION GAP -2 (5-13); BLOOD UREA NITROGEN 5 mg/dl (7-20); CARBON DIOXIDE 31 mmol/L (21-31); CHLORIDE 106 mmol/L (97-110); CREATININE 0.74 mg/dl (0.61-1.24); GLUCOSE 85 mg/dl (70-220); POTASSIUM 4.4 mmol/L (3.5-5.1); SODIUM 135 mmol/L (135-144)
[2019-06-28] MEDS: ALBUTEROL/IPRATROPIUM (NEB) 3 ML AMP HHN ×3 (08:07→20:41)
[2019-06-28] MEDS: POTASSIUM CHLORIDE 20 MEQ POWDER FOR ORAL SOLN PO (09:16)
[2019-06-28] MEDS: CALCIUM POLYCARBOPHIL 625 MG TAB PO (09:17)
[2019-06-28] MEDS: MEMANTINE 10 MG TAB PO ×2 (09:17→20:54)
[2019-06-28] MEDS: LACTOBACILLUS RHAMNOSUS CAP PO ×2 (09:17→20:54)
[2019-06-28] MEDS: SUCRALFATE (100 MG/ML) 10ML CUP PO ×4 (09:17→20:54)
[2019-06-28] MEDS: CHOLECALCIFEROL 1,000 UNIT TAB PO (09:17)
[2019-06-28] MEDS: FISH OIL 1,000 MG CAP PO ×3 (09:17→20:54)
[2019-06-28] MEDS: FERROUS SULFATE (EC) 325 MG TAB PO ×2 (09:17→20:54)
[2019-06-28 10:11] LABS: ANISOCYTOSIS 2+ (0-0); BAND NEUTROPHILS % (M) 2 % (0-4); BASOPHILS % (M) 2 % (0-2); EOSINOPHILS % (M) 4 % (0-7); LYMPHOCYTES #M 0.8 10^3/ul (0.8-2.9); LYMPHOCYTES % (M) 19 % (15-51); MONOCYTES % (M) 2 % (0-11); PLATELET ESTIMATE DECREASED; POIKILOCYTOSIS 1+ (0-0); POLYCHROMASIA 2+ (0-0); REACTIVE LYMPHOCYTES #M 0.3 10^3/ul (0.0-0.0); REACTIVE LYMPHOCYTES% (M) 8 % (0-0); SEG NEUT #M 2.8 10^3/ul (1.6-7.5); SEGMENTED NEUTROPHILS (M) % 63 % (39-77); SMUDGE%M 14 % (0-0)
[2019-06-28] MEDS: BISACODYL (EC) 5 MG TAB PO (16:43)
[2019-06-28] MEDS: MAGNESIUM CITRATE 300 ML BTL PO (18:29)
[2019-06-28] MEDS: TAMSULOSIN (SR) 0.4 MG CAP PO (20:54)
[2019-06-28] MEDS: POLYETHYLENE GLYCOL 3350 119 GM POWDER PO (23:47)
[2019-06-29] MEDS: PANTOPRAZOLE (EC) 40 MG TAB PO ×2 (05:47→18:00)
[2019-06-29] MEDS: BUMETANIDE 1 MG TAB PO ×2 (05:47→18:00)
[2019-06-29 06:14] LABS: ADD MAN DIFF? NO
[2019-06-29 06:24] LABS: BASOPHIL # 0.1 10^3/ul (0.0-0.1); BASOPHILS % 1.3 % (0.0-2.0); EOSINOPHILS # 0.1 10^3/ul (0.0-0.5); EOSINOPHILS % 3.6 % (0.0-7.0); HEMATOCRIT 26.5 % (42.0-52.0); HEMOGLOBIN 8.3 g/dl (14.0-18.0); LYMPHOCYTES # 0.8 10^3/ul (0.8-2.9); LYMPHOCYTES % 19.6 % (15.0-51.0); MEAN CORPUSCULAR HEMOGLOBIN 33.2 pg (29.0-33.0); MEAN CORPUSCULAR HGB CONC 31.3 g/dl (32.0-37.0); MEAN PLATELET VOLUME 10.6 fl (7.4-10.4); MONOCYTE # 0.2 10^3/ul (0.3-0.9); MONOCYTES % 5.7 % (0.0-11.0); NEUTROPHIL # 2.7 10^3/ul (1.6-7.5); PLATELET COUNT 114 10^3/UL (140-415); POSITIVE DIFF @See below
[2019-06-29 06:24] LABS: WHITE BLOOD COUNT 3.9 10^3/ul (4.8-10.8)
[2019-06-29 06:52] LABS: ANION GAP 0 (5-13); BLOOD UREA NITROGEN 4 mg/dl (7-20); CARBON DIOXIDE 28 mmol/L (21-31); CHLORIDE 104 mmol/L (97-110); CREATININE 0.68 mg/dl (0.61-1.24); GLUCOSE 84 mg/dl (70-220); SODIUM 132 mmol/L (135-144)
[2019-06-29 07:02] LABS: POTASSIUM 2.9 mmol/L (3.5-5.1)
[2019-06-29] MEDS: ALBUTEROL/IPRATROPIUM (NEB) 3 ML AMP HHN ×3 (07:55→20:00)
[2019-06-29] MEDS: POTASSIUM CHLORIDE 50 ML IVPB (08:56)
[2019-06-29] MEDS: POLYETHYLENE GLYCOL 3350 119 GM POWDER PO (08:56)
[2019-06-29] MEDS: SUCRALFATE (100 MG/ML) 10ML CUP PO ×4 (08:56→22:30)
[2019-06-29] MEDS: CHOLECALCIFEROL 1,000 UNIT TAB PO (08:57)
[2019-06-29] MEDS: MEMANTINE 10 MG TAB PO ×2 (08:57→22:30)
[2019-06-29] MEDS: FERROUS SULFATE (EC) 325 MG TAB PO ×2 (08:57→21:00)
[2019-06-29] MEDS: LACTOBACILLUS RHAMNOSUS CAP PO ×2 (08:57→22:31)
[2019-06-29] MEDS: FISH OIL 1,000 MG CAP PO ×3 (08:58→22:31)
[2019-06-29] MEDS: CALCIUM POLYCARBOPHIL 625 MG TAB PO (09:07)
[2019-06-29] MEDS: BISACODYL (EC) 5 MG TAB PO (09:07)
[2019-06-29 09:30] LABS: ANISOCYTOSIS 1+ (0-0); BAND NEUTROPHILS % (M) 2 % (0-4); BASOPHILS % (M) 1 % (0-2); BURR CELLS 1+ (0-0); EOSINOPHILS % (M) 2 % (0-7); LYMPHOCYTES #M 0.3 10^3/ul (0.8-2.9); LYMPHOCYTES % (M) 9 % (15-51); MONOCYTES % (M) 2 % (0-11); PLATELET ESTIMATE DECREASED; REACTIVE LYMPHOCYTES% (M) 2 % (0-0); SEG NEUT #M 3.2 10^3/ul (1.6-7.5); SEGMENTED NEUTROPHILS (M) % 82 % (39-77); SMUDGE%M 12 % (0-0)
[2019-06-29] MEDS: POTASSIUM CHLORIDE 100 ML IVPB ×2 (10:21→12:37)
[2019-06-29] MEDS: POTASSIUM CHLORIDE 20 MEQ POWDER FOR ORAL SOLN PO (10:25)
[2019-06-29] MEDS: TAMSULOSIN (SR) 0.4 MG CAP PO (22:30)
[2019-06-30 06:12] LABS: ADD MAN DIFF? NO
[2019-06-30 06:21] LABS: WHITE BLOOD COUNT 3.8 10^3/ul (4.8-10.8)
[2019-06-30 06:21] LABS: BASOPHILS % 1.1 % (0.0-2.0); EOSINOPHILS # 0.1 10^3/ul (0.0-0.5); EOSINOPHILS % 3.4 % (0.0-7.0); HEMATOCRIT 28.2 % (42.0-52.0); LYMPHOCYTES # 0.6 10^3/ul (0.8-2.9); LYMPHOCYTES % 15.9 % (15.0-51.0); MEAN CORPUSCULAR HEMOGLOBIN 33.3 pg (29.0-33.0); MEAN CORPUSCULAR HGB CONC 31.9 g/dl (32.0-37.0); MEAN CORPUSCULAR VOLUME 104.4 fl (82.0-101.0); MEAN PLATELET VOLUME 11.1 fl (7.4-10.4); MONOCYTE # 0.2 10^3/ul (0.3-0.9); MONOCYTES % 5.6 % (0.0-11.0); NEUTROPHIL # 2.8 10^3/ul (1.6-7.5); NEUTROPHILS % 73.2 % (39.0-77.0); PLATELET COUNT 120 10^3/UL (140-415); POSITIVE DIFF @See below; RED CELL DISTRIBUTION WIDTH 15.9 % (11.5-14.5)
[2019-06-30 06:56] LABS: ANION GAP 2 (5-13); BLOOD UREA NITROGEN 6 mg/dl (7-20); CALCIUM 8.2 mg/dl (8.4-10.2); CARBON DIOXIDE 27 mmol/L (21-31); CHLORIDE 105 mmol/L (97-110); CREATININE 0.69 mg/dl (0.61-1.24); GLUCOSE 83 mg/dl (70-220); MAGNESIUM 1.9 mg/dl (1.7-2.5); SODIUM 134 mmol/L (135-144)
[2019-06-30] MEDS: PANTOPRAZOLE (EC) 40 MG TAB PO ×2 (06:57→18:26)
[2019-06-30] MEDS: BUMETANIDE 1 MG TAB PO ×2 (06:57→18:26)
[2019-06-30 07:23] LABS: POTASSIUM 3.5 mmol/L (3.5-5.1)
[2019-06-30] MEDS: ALBUTEROL/IPRATROPIUM (NEB) 3 ML AMP HHN ×2 (07:53→20:46)
[2019-06-30] MEDS: MEMANTINE 10 MG TAB PO ×2 (08:07→20:22)
[2019-06-30] MEDS: LACTOBACILLUS RHAMNOSUS CAP PO ×2 (08:07→20:22)
[2019-06-30] MEDS: FERROUS SULFATE (EC) 325 MG TAB PO ×2 (08:07→20:22)
[2019-06-30] MEDS: FISH OIL 1,000 MG CAP PO ×3 (08:07→20:22)
[2019-06-30] MEDS: CHOLECALCIFEROL 1,000 UNIT TAB PO (08:07)
[2019-06-30] MEDS: POTASSIUM CHLORIDE 20 MEQ POWDER FOR ORAL SOLN PO (08:07)
[2019-06-30] MEDS: SUCRALFATE (100 MG/ML) 10ML CUP PO ×4 (08:07→20:22)
[2019-06-30] MEDS: CALCIUM POLYCARBOPHIL 625 MG TAB PO (08:07)
[2019-06-30] MEDS: TAMSULOSIN (SR) 0.4 MG CAP PO (20:22)
[2019-07-01] MEDS: PANTOPRAZOLE (EC) 40 MG TAB PO ×2 (06:25→17:13)
[2019-07-01] MEDS: BUMETANIDE 1 MG TAB PO ×2 (06:25→17:13)
[2019-07-01] MEDS: ALBUTEROL/IPRATROPIUM (NEB) 3 ML AMP HHN ×3 (07:37→20:04)
[2019-07-01] MEDS: CHOLECALCIFEROL 1,000 UNIT TAB PO (08:29)
[2019-07-01] MEDS: FERROUS SULFATE (EC) 325 MG TAB PO ×2 (08:29→20:16)
[2019-07-01] MEDS: CALCIUM POLYCARBOPHIL 625 MG TAB PO (08:29)
[2019-07-01] MEDS: MEMANTINE 10 MG TAB PO ×2 (08:29→20:16)
[2019-07-01] MEDS: POTASSIUM CHLORIDE 20 MEQ POWDER FOR ORAL SOLN PO (08:29)
[2019-07-01] MEDS: SUCRALFATE (100 MG/ML) 10ML CUP PO ×4 (08:29→20:15)
[2019-07-01] MEDS: FISH OIL 1,000 MG CAP PO ×3 (08:29→20:16)
[2019-07-01] MEDS: LACTOBACILLUS RHAMNOSUS CAP PO ×2 (08:29→20:16)
[2019-07-01] MEDS: SOD CHLORIDE 0.9% 100 ML (19:10)
[2019-07-01] MEDS: IOHEXOL 300MG/ML 150 ML BTL (19:10)
[2019-07-01] MEDS: PROPOFOL 20 ML ×2 (19:10→19:11)
[2019-07-01] MEDS: PHENYLephrine (100 MCG/ML) 10ML SYG (19:11)
[2019-07-01] MEDS: TAMSULOSIN (SR) 0.4 MG CAP PO (20:16)
[2019-07-01] MEDS: APIXABAN 5 MG TABLET PO (20:17)
[2019-07-02] MEDS: PANTOPRAZOLE (EC) 40 MG TAB PO ×2 (05:26→17:05)
[2019-07-02] MEDS: BUMETANIDE 1 MG TAB PO ×2 (05:26→17:05)
[2019-07-02 06:19] LABS: WHITE BLOOD COUNT 3.8 10^3/ul (4.8-10.8)
[2019-07-02 06:19] LABS: HEMATOCRIT 24.6 % (42.0-52.0); MEAN CORPUSCULAR HEMOGLOBIN 34.5 pg (29.0-33.0); MEAN CORPUSCULAR HGB CONC 32.5 g/dl (32.0-37.0); MEAN PLATELET VOLUME 11.2 fl (7.4-10.4); PLATELET COUNT 101 10^3/UL (140-415); POSITIVE DIFF @See below; RED BLOOD COUNT 2.32 10^6/ul (4.70-6.10); RED CELL DISTRIBUTION WIDTH 15.8 % (11.5-14.5)
[2019-07-02 06:28] LABS: ADD MAN DIFF? YES
[2019-07-02 06:43] LABS: ALANINE AMINOTRANSFERASE 20 IU/L (13-69); ALBUMIN/GLOBULIN RATIO 0.66; ALKALINE PHOSPHATASE 111 IU/L (42-121); ANION GAP 1 (5-13); ASPARTATE AMINO TRANSFERASE 16 IU/L (15-46); BLOOD UREA NITROGEN 7 mg/dl (7-20); CALCIUM 7.7 mg/dl (8.4-10.2); CARBON DIOXIDE 30 mmol/L (21-31); CHLORIDE 103 mmol/L (97-110); CREATININE 0.76 mg/dl (0.61-1.24); GLUCOSE 82 mg/dl (70-220); POTASSIUM 3.1 mmol/L (3.5-5.1); SODIUM 134 mmol/L (135-144)
[2019-07-02] MEDS: SUCRALFATE (100 MG/ML) 10ML CUP PO ×4 (08:02→21:41)
[2019-07-02] MEDS: POTASSIUM CHLORIDE 20 MEQ POWDER FOR ORAL SOLN PO (08:02)
[2019-07-02] MEDS: CHOLECALCIFEROL 1,000 UNIT TAB PO (08:02)
[2019-07-02] MEDS: APIXABAN 5 MG TABLET PO ×2 (08:02→21:41)
[2019-07-02] MEDS: FERROUS SULFATE (EC) 325 MG TAB PO ×2 (08:03→21:41)
[2019-07-02] MEDS: CALCIUM POLYCARBOPHIL 625 MG TAB PO (08:03)
[2019-07-02] MEDS: FISH OIL 1,000 MG CAP PO ×3 (08:03→21:41)
[2019-07-02] MEDS: LACTOBACILLUS RHAMNOSUS CAP PO ×2 (08:03→21:41)
[2019-07-02] MEDS: MEMANTINE 10 MG TAB PO ×2 (08:03→21:41)
[2019-07-02] MEDS: ALBUTEROL/IPRATROPIUM (NEB) 3 ML AMP HHN ×3 (08:31→20:11)
[2019-07-02 09:24] LABS: ANISOCYTOSIS 2+ (0-0); BAND NEUTROPHILS #M 0.1 10^3/ul (0.0-0.6); BAND NEUTROPHILS % (M) 5 % (0-4); BURR CELLS 2+ (0-0); EOSINOPHILS % (M) 3 % (0-7); GIANT THROMBO% (M) 1 % (0-0); LYMPHOCYTES #M 0.4 10^3/ul (0.8-2.9); LYMPHOCYTES % (M) 13 % (15-51); MYELOCYTES % (M) 2 % (0-0); OVALOCYTES 1+ (0-0); PLATELET ESTIMATE DECREASED; POIKILOCYTOSIS 3+ (0-0); REACTIVE LYMPHOCYTES% (M) 2 % (0-0); SEG NEUT #M 2.9 10^3/ul (1.6-7.5); SEGMENTED NEUTROPHILS (M) % 75 % (39-77); SMUDGE%M 2 % (0-0); TARGET CELLS 1+ (0-0)
[2019-07-02] MEDS: TAMSULOSIN (SR) 0.4 MG CAP PO (21:41)
[2019-07-03 05:27] LABS: ADD MAN DIFF? NO
[2019-07-03 05:31] LABS: BASOPHIL # 0.1 10^3/ul (0.0-0.1); BASOPHILS % 1.3 % (0.0-2.0); EOSINOPHILS # 0.1 10^3/ul (0.0-0.5); EOSINOPHILS % 3.2 % (0.0-7.0); HEMOGLOBIN 8.4 g/dl (14.0-18.0); LYMPHOCYTES # 0.7 10^3/ul (0.8-2.9); LYMPHOCYTES % 17.3 % (15.0-51.0); MEAN CORPUSCULAR HEMOGLOBIN 33.7 pg (29.0-33.0); MEAN CORPUSCULAR HGB CONC 32.3 g/dl (32.0-37.0); MEAN CORPUSCULAR VOLUME 104.4 fl (82.0-101.0); MEAN PLATELET VOLUME 11.2 fl (7.4-10.4); MONOCYTE # 0.2 10^3/ul (0.3-0.9); MONOCYTES % 4.3 % (0.0-11.0); NEUTROPHIL # 2.8 10^3/ul (1.6-7.5); NEUTROPHILS % 73.6 % (39.0-77.0); PLATELET COUNT 101 10^3/UL (140-415); POSITIVE DIFF @See below; RED BLOOD COUNT 2.49 10^6/ul (4.70-6.10); RED CELL DISTRIBUTION WIDTH 15.6 % (11.5-14.5)
[2019-07-03 05:31] LABS: WHITE BLOOD COUNT 3.8 10^3/ul (4.8-10.8)
[2019-07-03 06:02] LABS: MAGNESIUM 1.6 mg/dl (1.7-2.5)
[2019-07-03 06:02] LABS: PHOSPHORUS 2.5 mg/dl (2.5-4.9)
[2019-07-03 06:27] LABS: ANION GAP 0 (5-13); BLOOD UREA NITROGEN 8 mg/dl (7-20); CALCIUM 7.9 mg/dl (8.4-10.2); CARBON DIOXIDE 30 mmol/L (21-31); CHLORIDE 104 mmol/L (97-110); CREATININE 0.72 mg/dl (0.61-1.24); GLUCOSE 83 mg/dl (70-220); POTASSIUM 3.2 mmol/L (3.5-5.1); SODIUM 134 mmol/L (135-144)
[2019-07-03] MEDS: BUMETANIDE 1 MG TAB PO ×2 (06:34→18:04)
[2019-07-03] MEDS: PANTOPRAZOLE (EC) 40 MG TAB PO ×2 (06:34→18:04)
[2019-07-03 07:21] LABS: ANISOCYTOSIS 2+ (0-0); BAND NEUTROPHILS #M 0.3 10^3/ul (0.0-0.6); BAND NEUTROPHILS % (M) 10 % (0-4); BASOPHILS % (M) 1 % (0-2); BURR CELLS 1+ (0-0); EOSINOPHILS % (M) 1 % (0-7); LYMPHOCYTES #M 0.3 10^3/ul (0.8-2.9); LYMPHOCYTES % (M) 9 % (15-51); MICROCYTOSIS 1+ (0-0); MONOCYTE #M 0.1 10^3/ul (0.3-0.9); MONOCYTES % (M) 4 % (0-11); PLATELET ESTIMATE DECREASED; POIKILOCYTOSIS 1+ (0-0); SEG NEUT #M 2.9 10^3/ul (1.6-7.5); SEGMENTED NEUTROPHILS (M) % 75 % (39-77); SMUDGE%M 57 % (0-0)
[2019-07-03] MEDS: ALBUTEROL/IPRATROPIUM (NEB) 3 ML AMP HHN ×3 (08:04→20:21)
[2019-07-03] MEDS: CHOLECALCIFEROL 1,000 UNIT TAB PO (09:03)
[2019-07-03] MEDS: SUCRALFATE (100 MG/ML) 10ML CUP PO ×4 (09:03→21:53)
[2019-07-03] MEDS: APIXABAN 5 MG TABLET PO ×2 (09:03→21:53)
[2019-07-03] MEDS: MEMANTINE 10 MG TAB PO ×2 (09:03→21:53)
[2019-07-03] MEDS: LACTOBACILLUS RHAMNOSUS CAP PO ×2 (09:03→21:53)
[2019-07-03] MEDS: POTASSIUM CHLORIDE 20 MEQ POWDER FOR ORAL SOLN PO ×2 (09:05→11:57)
[2019-07-03] MEDS: FISH OIL 1,000 MG CAP PO ×3 (09:05→21:53)
[2019-07-03] MEDS: FERROUS SULFATE (EC) 325 MG TAB PO ×2 (09:05→21:53)
[2019-07-03] MEDS: CALCIUM POLYCARBOPHIL 625 MG TAB PO (11:57)
[2019-07-03] MEDS: MAGNESIUM SULFATE 2 GM/50 ML 50 ML IVPB (14:38)
[2019-07-03] MEDS: TAMSULOSIN (SR) 0.4 MG CAP PO (21:53)
[2019-07-03] MEDS: DOCUSATE SODIUM 100 MG CAP PO (22:24)
[2019-07-04 05:32] LABS: ADD MAN DIFF? NO
[2019-07-04 05:39] LABS: WHITE BLOOD COUNT 3.3 10^3/ul (4.8-10.8)
[2019-07-04 05:39] LABS: BASOPHILS % 0.9 % (0.0-2.0); EOSINOPHILS # 0.1 10^3/ul (0.0-0.5); EOSINOPHILS % 3.9 % (0.0-7.0); HEMATOCRIT 26.3 % (42.0-52.0); HEMOGLOBIN 8.5 g/dl (14.0-18.0); LYMPHOCYTES # 0.7 10^3/ul (0.8-2.9); LYMPHOCYTES % 19.5 % (15.0-51.0); MEAN CORPUSCULAR HEMOGLOBIN 34.1 pg (29.0-33.0); MEAN CORPUSCULAR HGB CONC 32.3 g/dl (32.0-37.0); MEAN CORPUSCULAR VOLUME 105.6 fl (82.0-101.0); MEAN PLATELET VOLUME 10.8 fl (7.4-10.4); MONOCYTE # 0.2 10^3/ul (0.3-0.9); MONOCYTES % 4.5 % (0.0-11.0); NEUTROPHIL # 2.4 10^3/ul (1.6-7.5); NEUTROPHILS % 70.6 % (39.0-77.0); PLATELET COUNT 103 10^3/UL (140-415); POSITIVE DIFF @See below; RED BLOOD COUNT 2.49 10^6/ul (4.70-6.10); RED CELL DISTRIBUTION WIDTH 15.4 % (11.5-14.5)
[2019-07-04 06:00] LABS: MAGNESIUM 1.9 mg/dl (1.7-2.5)
[2019-07-04 06:00] LABS: PHOSPHORUS 2.5 mg/dl (2.5-4.9)
[2019-07-04 06:03] LABS: ANION GAP 1 (5-13); BLOOD UREA NITROGEN 8 mg/dl (7-20); CALCIUM 8.1 mg/dl (8.4-10.2); CARBON DIOXIDE 31 mmol/L (21-31); CHLORIDE 101 mmol/L (97-110); GLUCOSE 84 mg/dl (70-220); SODIUM 133 mmol/L (135-144)
[2019-07-04] MEDS: PANTOPRAZOLE (EC) 40 MG TAB PO (06:32)
[2019-07-04] MEDS: BUMETANIDE 1 MG TAB PO (06:32)
[2019-07-04] MEDS: SUCRALFATE (100 MG/ML) 10ML CUP PO ×2 (08:20→13:28)
[2019-07-04] MEDS: CALCIUM POLYCARBOPHIL 625 MG TAB PO (08:21)
[2019-07-04] MEDS: APIXABAN 5 MG TABLET PO (08:21)
[2019-07-04] MEDS: FERROUS SULFATE (EC) 325 MG TAB PO (08:21)
[2019-07-04] MEDS: FISH OIL 1,000 MG CAP PO ×2 (08:21→13:28)
[2019-07-04] MEDS: POTASSIUM CHLORIDE 20 MEQ POWDER FOR ORAL SOLN PO (08:21)
[2019-07-04] MEDS: LACTOBACILLUS RHAMNOSUS CAP PO (08:21)
[2019-07-04] MEDS: MEMANTINE 10 MG TAB PO (08:21)
[2019-07-04] MEDS: CHOLECALCIFEROL 1,000 UNIT TAB PO (08:21)
[2019-07-04 08:47] LABS: ANISOCYTOSIS 2+ (0-0); BAND NEUTROPHILS #M 0.3 10^3/ul (0.0-0.6); BAND NEUTROPHILS % (M) 10 % (0-4); BASOPHILS % (M) 1 % (0-2); BURR CELLS 2+ (0-0); EOSINOPHILS % (M) 4 % (0-7); LYMPHOCYTES #M 0.7 10^3/ul (0.8-2.9); LYMPHOCYTES % (M) 23 % (15-51); MONOCYTES % (M) 3 % (0-11); OVALOCYTES 1+ (0-0); PLATELET ESTIMATE DECREASED; POIKILOCYTOSIS 3+ (0-0); POLYCHROMASIA 1+ (0-0); SEGMENTED NEUTROPHILS (M) % 59 % (39-77); SMUDGE%M 2 % (0-0)
[2019-07-04] MEDS: ALBUTEROL/IPRATROPIUM (NEB) 3 ML AMP HHN ×2 (08:50→13:22)
== END 2019-07-04 14:01 | DRG 393 ==
LOC: 6WM 20:47 → E/R 18:30
PROC: 0W9G3ZZ Drainage of Peritoneal Cavity, Percutaneous Approach (ICD-10-PCS; principal; 2019-06-27 15:30)
PROC: 0DB98ZX Excision of Duodenum, Via Natural or Artificial Opening Endoscopic, Diagnostic (ICD-10-PCS; 2019-06-27 15:30)
PROC: 0DB78ZX Excision of Stomach, Pylorus, Via Natural or Artificial Opening Endoscopic, Diagnostic (ICD-10-PCS; 2019-06-27 15:30)
PROC: 0DBM8ZX Excision of Descending Colon, Via Natural or Artificial Opening Endoscopic, Diagnostic (ICD-10-PCS; 2019-06-27 15:30)
PROC: 0DBN8ZX Excision of Sigmoid Colon, Via Natural or Artificial Opening Endoscopic, Diagnostic (ICD-10-PCS; 2019-06-27 15:30)
PROC: 0DBF8ZX Excision of Right Large Intestine, Via Natural or Artificial Opening Endoscopic, Diagnostic (ICD-10-PCS; 2019-06-27 15:30)
PROC: 0DBK8ZZ Excision of Ascending Colon, Via Natural or Artificial Opening Endoscopic (ICD-10-PCS; 2019-06-27 15:30)
PROC: 0DBN8ZZ Excision of Sigmoid Colon, Via Natural or Artificial Opening Endoscopic (ICD-10-PCS; 2019-06-27 15:30)
PROC: 0DBM8ZZ Excision of Descending Colon, Via Natural or Artificial Opening Endoscopic (ICD-10-PCS; 2019-06-27 15:30)
PROC: 30233N1 Transfusion of Nonautologous Red Blood Cells into Peripheral Vein, Percutaneous Approach (ICD-10-PCS; 2019-06-27 15:30)
DX: K52.1 Toxic gastroenteritis and colitis (principal); I50.33 Acute on chronic diastolic (congestive) heart failure; D61.818 Other pancytopenia; R18.8 Other ascites; T46.0X5A Adverse effect of cardiac-stimulant glycosides and drugs of similar action, initial encounter; D53.9 Nutritional anemia, unspecified; E87.6 Hypokalemia; I27.20 Pulmonary hypertension, unspecified; I35.0 Nonrheumatic aortic (valve) stenosis; I48.2 Chronic atrial fibrillation; I49.8 Other specified cardiac arrhythmias; I25.5 Ischemic cardiomyopathy; I25.10 Atherosclerotic heart disease of native coronary artery without angina pectoris; K29.30 Chronic superficial gastritis without bleeding; K74.60 Unspecified cirrhosis of liver; K31.7 Polyp of stomach and duodenum; K63.5 Polyp of colon; N40.0 Benign prostatic hyperplasia without lower urinary tract symptoms; R11.2 Nausea with vomiting, unspecified; R10.9 Unspecified abdominal pain; Z79.01 Long term (current) use of anticoagulants
CPT/HCPCS: 36415; 36430; 71045; 74176; 74177; 80048; 80053; 80061; 80162; 81003; 82042; 82140; 82270; 82607; 82746; 82945; 83036; 83690; 83735; 83880; 84100; 84157; 84443; 85025; 85610; 85730; 86850; 86870; 86880; 86900; 86901; 86902; 86920; 86978; 87040-91; 87045; 87070; 87075; 87102; 87116; 87177; 87205; 88104; 88305; 88312; 89051; 93005; 93306; 94640; 96374; 97110; 97116; 97162; 97530; 99285-25